=== PATIENT | female | born 1940 | race Caucasian/White ===

== ENCOUNTER 2016-04-11 08:40 | Outpatient (CLI) | payer MEDICARE, OTHER | END 2016-04-11 08:41 | disposition home or self-care (01) | DX: D64.9 Anemia, unspecified (principal) ==

== ENCOUNTER 2016-04-24 09:08 | Outpatient (CLI) | payer MEDICARE, OTHER | END 2016-04-24 09:09 | disposition home or self-care (01) | DX: D64.9 Anemia, unspecified (principal) ==

== ENCOUNTER 2016-05-23 09:28 | Outpatient (CLI) | payer MEDICARE, OTHER | END 2016-05-23 09:29 | disposition home or self-care (01) | DX: E55.9 Vitamin D deficiency, unspecified (principal); E78.2 Mixed hyperlipidemia; Z79.899 Other long term (current) drug therapy ==

== ENCOUNTER 2016-08-06 08:00 | Outpatient (CLI) | payer MEDICARE, OTHER | END 2016-08-06 23:59 | LOC: LAB.R 08:00 | PROVIDERS: ATTEND Physician Assistant Medical | DX: E55.9 Vitamin D deficiency, unspecified (principal); Z79.899 Other long term (current) drug therapy | CPT/HCPCS: 82306 ==

== ENCOUNTER 2016-12-31 12:03 | Outpatient (CLI) | payer MEDICARE, OTHER ==
--- NOTE | 2016-12-31 15:44 | XRAY Report ---
THREE VIEW LUMBAR SPINE: 12/31/2016 CLINICAL INDICATION: Back pain, radiculopathy. FINDINGS: AP, lateral, and coned down views of the lumbar spine are compared to previous films of . Degenerative changes, with anterolisthesis of L5 on S1, are stable. Chronic compression deformity, mi ld, of L3 is unchanged. No new fracture or subluxation is appreciated. Mild degenerative levoscoliosi s is stable. IMPRESSION: STABLE MILD L3 COMPRESSION FRACTURE AND ANTEROLISTHESIS OF L5 ON S1. NO SIGNIFICANT INTE RVAL CHANGE FROM 09/14/2015. JOB #: [id number] EXT JOB #:[id number]
== END 2016-12-31 12:04 | disposition home or self-care (01) ==
LOC: DI 12:03
PROVIDERS: ATTEND Physician Assistant Medical
DX: M47.896 Other spondylosis, lumbar region (principal); M43.8X6 Other specified deforming dorsopathies, lumbar region; M43.17 Spondylolisthesis, lumbosacral region
CPT/HCPCS: 72100

== ENCOUNTER 2016-12-31 19:34 | Outpatient (CLI) | payer MEDICARE, OTHER | END 2016-12-31 19:35 | disposition critical access hospital (66) | LOC: EMS 19:34 | PROVIDERS: ATTEND Surgery | DX: R05 Cough (principal) | CPT/HCPCS: 72100; A0425; A0429 ==

== ENCOUNTER 2016-12-31 19:43 | Emergency (ER) | payer MEDICARE, OTHER ==
[2016-12-31] MEDS ORDERED: IPRATROPIUM/ALBUTEROL 3 ML NEB INH STA (20:16)
[2016-12-31] MEDS ORDERED: AZITHROMYCIN 250 MG TABLET PO STA (20:16)
[2016-12-31] MEDS: methylPREDNISolone SUCCINATE 125 MG/2 ML VIAL IVP STA ×2 (20:26→20:34)
[2016-12-31] MEDS ORDERED: AZITHROMYCIN 250 MG TABLET PO ONE (20:27)
[2016-12-31] MEDS ORDERED: methylPREDNISolone SUCCINATE 125 MG/2 ML VIAL ONE (20:27)
[2016-12-31] MEDS ORDERED: SODIUM CHLORIDE FLUSH 0.9% 10 ML SYRINGE IVP ONE (20:28)
[2016-12-31 20:42] LABS: BASOPHILS % (AUTO) 0.2 %; HCT - HEMATOCRIT 42.7 % (37.0-47.0); LYMPHOCYTES # (AUTO) 0.9 10^3/uL (1.5-3.5); LYMPHOCYTES % (AUTO) 6.7 %; MEAN CORPUSCULAR HEMOGLOBIN 31.2 pg (27.0-31.0); MEAN CORPUSCULAR HGB CONC 32.8 g/dL (32.0-36.0); MEAN PLATELET VOLUME 8.8 fL (7.9-10.8); MONOCYTES # (AUTO) 0.9 10^3/uL (0.0-1.0); NEUTROPHILS # (AUTO) 11.5 10^3/uL (1.5-6.6); NEUTROPHILS % (AUTO) 86.1 %; RED CELL DISTRIBUTION WIDTH 13.3 % (12.0-15.0); UNCORRECTED WHITE BLOOD COUNT 13.3 x10^3/uL; WHITE BLOOD COUNT 13.3 x10^3/uL (4.8-10.8)
[2016-12-31 21:06] LABS: ALBUMIN/GLOBULIN RATIO 1.7 (1.0-2.2); BILIRUBIN,TOTAL 0.6 mg/dL (0.2-1.0); CALCIUM 9.1 mg/dL (8.5-10.3); CREATININE 1.1 mg/dL (0.4-1.0); POTASSIUM 4.3 mmol/L (3.5-5.0); TOTAL PROTEIN 6.5 g/dL (6.7-8.2)
[2016-12-31] MEDS ORDERED: IPRATROPIUM/ALBUTEROL 3 ML NEB INH ONE (21:13)
--- NOTE | 2016-12-31 21:34 | XRAY Preliminary Report ---
Exam: XR Chest 2 View PA/LAT IMPRESSION: 1. Probable 3.5 cm right lung base mass. 2. Chronic lung disease. 3. Mature postoperative changes left lung. [facility] SITE ID: [id number]
[2016-12-31] MEDS ORDERED: SODIUM CHLORIDE 0.9% 1,000 ML IV ONE (21:39)
--- NOTE | 2016-12-31 21:45 | XRAY Report ---
EXAM: CHEST RADIOGRAPHY EXAM DATE: 12/31/2016 08:59 PM. CLINICAL HISTORY: Wheezing cough for 5 days. COMPARISON: 03/15/2016. TECHNIQUE: 2 views. FINDINGS: Lungs/Pleura: Remote partial left lung resection. 3.5 cm mass- like density right lateral lung base. No vascular congestion or pneumothorax. Emphysematous changes. Mediastinum: Stable moderate right to left mediastinal shift. Heart is of normal caliber. No adenopat hy. Other: None. IMPRESSION: 1. Probable 3.5 cm right lung base mass. 2. Chronic lung disease. 3. Mature postoperative changes left lung. [facility] Referring Provider Line: [phone] SITE ID: [id number]
[2016-12-31] MEDS ORDERED: ALBUTEROL NEB 2.5 MG/3 ML INH STA (22:53)
[2016-12-31] MEDS ORDERED: ALBUTEROL NEB 2.5 MG/3 ML INH ONE (22:58)
--- NOTE | 2016-12-31 23:26 | ED Physician Documentation ---
PD HPI DYSPNEA - Stated complaint Stated Complaint: SOA - Chief complaint Chief Complaint: Resp - History obtained from History obtained from: Patient, Friend - History of Present Illness Timing - onset: Today Timing - onset during: Rest, Light activity Timing - details: Gradual onset, Still present Inciting event(s): URI Improved by: O2, Inhaler/neb, Steroids Associated symptoms: Cough, Wheezing Similar symptoms before: Work up / diagnostics, Treatment Recently seen: Clinic - Additional information Additional information: Patient is a 76 year old female with a history of copd and lung ca who is presenting to the emergency department for shortness of breath. Patient states that it has been going on for the last few days. Patient states that she started her steroids today and saw her pmd. Her pmd stated that she sounded ok , but patient wanted to come in for evaluation. Patient was a bit hypoxic earlier in the day, but improved with nebulizer treatments. Review of Systems Constitutional: reports: Chills. denies: Fever Eyes: denies: Loss of vision, Photophobia Ears: denies: Ear pain, Drainage/discharge Nose: denies: Rhinorrhea / runny nose, Congestion Throat: denies: Dental pain / toothache, Sore throat Cardiac: denies: Chest pain / pressure, Calf pain Respiratory: reports: Dyspnea, Cough, Wheezing GI: denies: Nausea, Vomiting : denies: Dysuria, Frequency Skin: denies: Rash, Lesions Musculoskeletal: reports: Extremity swelling. denies: Neck pain, Back pain Neurologic: denies: Generalized weakness, Focal weakness, Numbness, Difficulty speaking Immunocompromised: reports: Immunocompromised PD PAST MEDICAL HISTORY - Past Medical History Past Medical History: Yes Cardiovascular: None, Valve disorder Respiratory: Asthma, Other Endocrine/Autoimmune: HyPOthyroidism GI: GERD : None HEENT: Glaucoma Psych: Anxiety Musculoskeletal: None Derm: Eczema Other Past Medical History: Lung CA - Past Surgical History Past Surgical History: Yes General: Colonoscopy Ortho: ACL reconstruction /PULL UP HAND: Hysterectomy Cardiovascular: Lobectomy HEENT: Tonsil/Adenoidectomy - Present Medications Home Medications: Ambulatory Orders Medication Instructions Recorded Confirmed Albuterol Sulfate [Proair Hfa 1 - 2 puffs INH Q4H PRN 09/27/13 03/15/16 Inhaler] Clonazepam 0.5 mg PO BID 09/27/13 03/15/16 Latanoprost 1 drop EACHEYE QPM 09/27/13 03/15/16 Levothyroxine [Synthroid] 50 mcg PO DAILY 09/27/13 03/15/16 Timolol 0.5% Ophth Drops [Timoptic 1 drop EACHEYE BID 09/27/13 03/15/16 0.5% Ophth Drops] Omeprazole [Prilosec] 20 mg PO DAILY 02/15/15 03/15/16 Zolpidem [Ambien] 2.5 - 5 mg PO QPM 02/15/15 03/15/16 Albuterol 2.5 mg INH QPM 03/15/16 03/15/16 Brimonidine 0.1% Ophth Drops 1 drop RIGHTEYE BID 03/15/16 03/15/16 [Alphagan P 0.1% Ophth Drops] Budesonide/Formoterol Fumarate 2 puffs INH BID 03/15/16 03/15/16 [Symbicort 160-4.5 Mcg Inhaler] Folic Acid 400 mg PO DAILY 03/15/16 03/15/16 Escitalopram [Lexapro] 10 mg PO DAILY 03/16/16 03/16/16 Hydrocodone/Acetaminophen 1 tab PO QID PRN 03/16/16 03/16/16 [Hydrocodon-Acetaminophen 5-325] Ondansetron Odt [Zofran Odt] 4 mg PO Q6H PRN 03/16/16 03/16/16 Prochlorperazine [Compazine] 5 - 10 mg PO Q6H PRN 03/16/16 03/16/16 Ferrous Sulfate [Feosol] 325 mg PO BIDWM tablet 03/19/16 Folic Acid 1 mg PO DAILY tablet 03/19/16 Lidocaine Patch 5% [Lidoderm Patch] 1 patch TOP DAILY PRN #0 patch 03/19/16 Multivitamin W/Minerals [Theragran 1 tab PO DAILYWM tablet 03/19/16 M] Pantoprazole [Protonix] 40 mg PO QDAC tablet 03/19/16 Polyethylene Glycol 3350 [Miralax] 17 gm PO DAILY packet 03/19/16 Prochlorperazine [Compazine] 5 mg PO Q6HR PRN #0 tablet 03/19/16 Zolpidem [Ambien] 2.5 mg PO QPM PRN #0 tablet 03/19/16 clonazePAM [KlonoPIN] 0.5 mg PO BID PRN #0 tablet 03/19/16 traMADol [Ultram] 50 mg PO Q4HR PRN #0 tablet 03/19/16 Azithromycin [Zithromax] 250 mg PO DAILY #4 tablet 12/31/16 - Allergies Allergies/Adverse Reactions: Allergies Allergy/AdvReac Type Severity Reaction Status Date / Time alprazolam AdvReac Unknown Verified 03/15/16 09:53 gabapentin AdvReac Unknown Verified 03/15/16 09:53 hydromorphone HCl * AdvReac Unknown Verified 03/15/16 09:53 [From Dilaudid] prednisone AdvReac Hallucinati Verified 12/31/16 20:32 ons - Social History Does the pt smoke?: No Smoking Status: Never smoker Does the pt drink ETOH?: Yes Does the pt have substance abuse?: No - Immunizations Immunizations are current?: Yes - POLST Patient has POLST: Yes PD ED PE NORMAL - Vitals Vital signs reviewed: Yes - General General: Alert and oriented X 3, No acute distress - HEENT HEENT: Atraumatic, PERRL - Neck Neck: No JVD - Cardiac Cardiac: RRR, No murmur - Abdomen Abdomen: Soft, Non tender, Non distended - Derm Derm: Normal color, Warm and dry, No rash - Extremities Extremities: No deformity, No edema - Neuro Neuro: Alert and oriented X 3, No motor deficit, No sensory deficit, Normal speech - Psych Psych: Normal mood, Normal affect PD ED PE EXPANDED - HEENT HEENT: Dry mucous membranes - Respiratory Respiratory: Wheezing (minimal bilateral wheezing) Results - Vitals Vitals: Vital Signs - 24 hr 12/31/16 12/31/16 12/31/16 19:44 21:00 21:14 Temperature 37.1 C Heart Rate 97 95 96 Respiratory 18 17 16 Rate Blood Pressure 185/85 H 155/73 H O2 Saturation 92 98 12/31/16 12/31/16 12/31/16 21:49 22:05 22:45 Temperature Heart Rate 105 H 96 100 Respiratory 17 16 16 Rate Blood Pressure 152/72 H 148/66 H O2 Saturation 97 98 93 12/31/16 12/31/16 12/31/16 23:04 23:05 23:43 Temperature Heart Rate 100 103 H 110 H Respiratory 17 16 Rate Blood Pressure 153/62 H 151/60 H O2 Saturation 100 94 Oxygen O2 Source Room air Oxygen Flow Rate 2 - EKG (time done) 2003 Rate: Rate (enter#) (95) Rhythm: NSR Cardale: LAD Intervals: Normal [place] QRS: Normal Compare to prior EKG: Unchanged from prior EKG - Labs Labs: Laboratory Tests 12/31/16 12/31/16 12/31/16 20:35 20:35 20:35 WBC 13.3 H RBC 4.50 Hgb 14.0 Hct 42.7 MCV 95.0 MCH 31.2 H MCHC 32.8 RDW 13.3 Plt Count 145 MPV 8.8 Neut # 11.5 H Lymph # 0.9 L [place] # 0.9 Eos # 0.0 Baso # 0.0 Absolute Nucleated RBC 0.00 Nucleated RBC % 0.0 Sodium 137 Potassium 4.3 Chloride 103 Carbon Dioxide 23 Anion Gap 11.0 BUN 22 H Creatinine 1.1 H Estimated GFR (MDRD) 48 L Glucose 122 H Calcium 9.1 Total Bilirubin 0.6 AST 22 ALT 16 Alkaline Phosphatase 47 Troponin I < 0.04 B-Natriuretic Peptide Total Protein 6.5 L Albumin 4.1 Globulin 2.4 Albumin/Globulin Ratio 1.7 Lipase 22 12/31/16 20:35 WBC RBC Hgb Hct MCV MCH MCHC RDW Plt Count MPV Neut # Lymph # [place] # Eos # Baso # Absolute Nucleated RBC Nucleated RBC % Sodium Potassium Chloride Carbon Dioxide Anion Gap BUN Creatinine Estimated GFR (MDRD) Glucose Calcium Total Bilirubin AST ALT Alkaline Phosphatase Troponin I B-Natriuretic Peptide 75 Total Protein Albumin Globulin Albumin/Globulin Ratio Lipase - Rads (name of study) chest x-ray Radiology: Final report received (3.5 right lung mass, chronic lung disease) PD MEDICAL DECISION MAKING - ED course Complexity details: reviewed old records, reviewed results, re-evaluated patient , considered differential, d/w patient, d/w construction safety consultant ED course: Patient was seen and examined at bedside. IV access was gained and labs were drawn. ekg was performed and showed no acute ischemic changes. patient was treated with three breathing treatments. Patient was offered steroids but stated that she had already taken them. patient was found to have a mild leukocytosis and elevated creatinine. Patient was treated with azithromycin and IV fluids. Patient was treated with additional fluids. Upon discharge patient was 95% on room air. Patient's case was discussed with oncologist Dr. Leblanc who stated that the plan was fine for discharge. patient was discharged in stable condition. Departure - Departure Disposition: 01 Home, Self Care Clinical Impression: Moderate COPD (chronic obstructive pulmonary disease) Condition: Good Instructions: ED COPD Flare Follow-Up: Tona Flood PA-C [Primary Care Provider] - Within 3 Days Prescriptions: Azithromycin [Zithromax] 250 mg PO DAILY #4 tablet Comments: Your diagnostics today showed a mild leukocytosis. Your chest x-ray looked clear but I will cover you with antibiotics for your leukocytosis. You had your first dose today and will need to take if for the next 4 days. You should follow up with your doctor this week. You can increase your albuterol usage to every 2 hours as needed for the next few days. You may return to the emergency department at any time for new, worsening or uncontrollable symptoms. Discharge Date/Time: 12/31/16 23:45
[2016-12-31 23:45] VITALS: BP 151/60
== END 2016-12-31 23:45 | disposition home or self-care (01) ==
LOC: EDUNIT# → EDBD → ED 19:43
DX: J44.9 Chronic obstructive pulmonary disease, unspecified (principal); D72.829 Elevated white blood cell count, unspecified; C50.919 Malignant neoplasm of unspecified site of unspecified female breast
CPT/HCPCS: 36415; 71020; 80053; 83690; 83880; 84484; 85025; 93005; 94640; 96361; 96374; 99284; 99285; A9270; J7613; J7620

== ENCOUNTER 2017-01-01 05:42 | Outpatient (CLI) | payer MEDICARE, OTHER | END 2017-01-01 05:43 | disposition critical access hospital (66) | LOC: EMS 05:42 | PROVIDERS: ATTEND Surgery | DX: R06.00 Dyspnea, unspecified (principal) | CPT/HCPCS: A0425; A0427 ==

== ENCOUNTER 2017-01-01 05:55 | Inpatient (IN) | payer MEDICARE, OTHER ==
[2017-01-01 06:39] LABS: BASOPHILS % (AUTO) 0.4 %; HCT - HEMATOCRIT 41.4 % (37.0-47.0); HGB - HEMOGLOBIN 13.8 g/dL (12.0-16.0); LYMPHOCYTES # (AUTO) 0.5 10^3/uL (1.5-3.5); LYMPHOCYTES % (AUTO) 4.8 %; MEAN CORPUSCULAR HEMOGLOBIN 31.8 pg (27.0-31.0); MEAN CORPUSCULAR HGB CONC 33.4 g/dL (32.0-36.0); MEAN CORPUSCULAR VOLUME 95.2 fL (81.0-99.0); MEAN PLATELET VOLUME 8.3 fL (7.9-10.8); MONOCYTES # (AUTO) 0.8 10^3/uL (0.0-1.0); MONOCYTES % (AUTO) 7.1 %; NEUTROPHILS # (AUTO) 9.6 10^3/uL (1.5-6.6); NEUTROPHILS % (AUTO) 87.7 %; RED BLOOD COUNT 4.35 10^6/uL (4.20-5.40); RED CELL DISTRIBUTION WIDTH 13.3 % (12.0-15.0); UNCORRECTED WHITE BLOOD COUNT 10.9 x10^3/uL; WHITE BLOOD COUNT 10.9 x10^3/uL (4.8-10.8)
[2017-01-01 06:53] LABS: ALBUMIN/GLOBULIN RATIO 1.6 (1.0-2.2); BILIRUBIN,TOTAL 0.7 mg/dL (0.2-1.0); CALCIUM 8.8 mg/dL (8.5-10.3); POTASSIUM 3.5 mmol/L (3.5-5.0); TOTAL PROTEIN 6.4 g/dL (6.7-8.2)
[2017-01-01] MEDS ORDERED: ALBUTEROL NEB 2.5 MG/3 ML INH STA (07:03)
--- NOTE | 2017-01-01 07:04 | ED Physician Documentation ---
PD HPI DYSPNEA - Stated complaint Stated Complaint: SOA, CP - Chief complaint Chief Complaint: Resp - History obtained from History obtained from: Patient, Family - History of Present Illness Timing - onset: Chronic Timing - onset during: Rest Timing - details: Gradual onset, Still present Inciting event(s): URI Improved by: O2, Inhaler/neb, Steroids Associated symptoms: Cough, Wheezing Similar symptoms before: Work up / diagnostics, Treatment, Follow up Recently seen: Emergency Dept - Additional information Additional information: patient is a 76 year old female with a history of copd who is presenting to the emergency department for shortness of breath. Patient was seen in the emergency department yesterday where she was treated for a copd exacerbation. patient was discharged home without any hypoxia. Patient states that after she got home last night she was feeling well for a while then had an episode of vomiting so she called the ambulance. patient states that her nausea improved but then her chest felt tight again so she wanted to come to the emergency department. Upon initial evaluation in the emergency department patient was well appearing and had an O2 sat of 94% on room air, but stated that she felt tight. Review of Systems Constitutional: denies: Fever, Chills, Myalgias Eyes: denies: Decreased vision, Photophobia Ears: denies: Ear pain, Drainage/discharge Nose: denies: Congestion Throat: denies: Sore throat Cardiac: denies: Chest pain / pressure, Palpitations, Calf pain Respiratory: reports: Dyspnea, Cough, Wheezing GI: reports: Nausea, Vomiting. denies: Abdominal Pain, Constipation, Diarrhea : denies: Dysuria, Frequency, Hesitancy Skin: denies: Rash, Lesions Neurologic: denies: Generalized weakness, Focal weakness, Numbness Immunocompromised: reports: Immunocompromised PD PAST MEDICAL HISTORY - Past Medical History Past Medical History: Yes Cardiovascular: Valve disorder Respiratory: Asthma, Other Neuro: None Endocrine/Autoimmune: HyPOthyroidism GI: GERD VISUAL COORDINATOR: None : None HEENT: Glaucoma Psych: Anxiety Musculoskeletal: None Derm: Eczema - Past Surgical History Past Surgical History: Yes General: Colonoscopy Ortho: ACL reconstruction /VISUAL COORDINATOR: Hysterectomy Cardiovascular: Lobectomy HEENT: Tonsil/Adenoidectomy - Present Medications Home Medications: Ambulatory Orders Medication Instructions Recorded Confirmed Albuterol Sulfate [Proair Hfa 1 - 2 puffs INH Q4H PRN 09/27/13 03/15/16 Inhaler] Clonazepam 0.5 mg PO BID 09/27/13 03/15/16 Latanoprost 1 drop EACHEYE QPM 09/27/13 03/15/16 Levothyroxine [Synthroid] 50 mcg PO DAILY 09/27/13 03/15/16 Timolol 0.5% Ophth Drops [Timoptic 1 drop EACHEYE BID 09/27/13 03/15/16 0.5% Ophth Drops] Omeprazole [Prilosec] 20 mg PO DAILY 02/15/15 03/15/16 Zolpidem [Ambien] 2.5 - 5 mg PO QPM 02/15/15 03/15/16 Albuterol 2.5 mg INH QPM 03/15/16 03/15/16 Brimonidine 0.1% Ophth Drops 1 drop RIGHTEYE BID 03/15/16 03/15/16 [Alphagan P 0.1% Ophth Drops] Budesonide/Formoterol Fumarate 2 puffs INH BID 03/15/16 03/15/16 [Symbicort 160-4.5 Mcg Inhaler] Folic Acid 400 mg PO DAILY 03/15/16 03/15/16 Escitalopram [Lexapro] 10 mg PO DAILY 03/16/16 03/16/16 Hydrocodone/Acetaminophen 1 tab PO QID PRN 03/16/16 03/16/16 [Hydrocodon-Acetaminophen 5-325] Ondansetron Odt [Zofran Odt] 4 mg PO Q6H PRN 03/16/16 03/16/16 Prochlorperazine [Compazine] 5 - 10 mg PO Q6H PRN 03/16/16 03/16/16 Ferrous Sulfate [Feosol] 325 mg PO BIDWM tablet 03/19/16 Folic Acid 1 mg PO DAILY tablet 03/19/16 Lidocaine Patch 5% [Lidoderm Patch] 1 patch TOP DAILY PRN #0 patch 03/19/16 Multivitamin W/Minerals [Theragran 1 tab PO DAILYWM tablet 03/19/16 M] Pantoprazole [Protonix] 40 mg PO QDAC tablet 03/19/16 Polyethylene Glycol 3350 [Miralax] 17 gm PO DAILY packet 03/19/16 Prochlorperazine [Compazine] 5 mg PO Q6HR PRN #0 tablet 03/19/16 Zolpidem [Ambien] 2.5 mg PO QPM PRN #0 tablet 03/19/16 clonazePAM [KlonoPIN] 0.5 mg PO BID PRN #0 tablet 03/19/16 traMADol [Ultram] 50 mg PO Q4HR PRN #0 tablet 03/19/16 Azithromycin [Zithromax] 250 mg PO DAILY #4 tablet 12/31/16 - Allergies Allergies/Adverse Reactions: Allergies Allergy/AdvReac Type Severity Reaction Status Date / Time alprazolam AdvReac Unknown Verified 01/01/17 06:10 gabapentin AdvReac Unknown Verified 01/01/17 06:10 hydromorphone HCl * AdvReac Unknown Verified 01/01/17 06:10 [From Dilaudid] prednisone AdvReac Hallucinati Verified 01/01/17 06:10 ons - Social History Does the pt smoke?: No Smoking Status: Never smoker Does the pt drink ETOH?: Yes Does the pt have substance abuse?: No - Immunizations Immunizations are current?: Yes - POLST Patient has POLST: Yes PD ED PE NORMAL - Vitals Vital signs reviewed: Yes - General General: Alert and oriented X 3, No acute distress - HEENT HEENT: Atraumatic, PERRL - Neck Neck: Supple, no meningeal sign - Cardiac Cardiac: RRR, No murmur - Abdomen Abdomen: Soft, Non tender, Non distended - Derm Derm: Normal color, Warm and dry, No rash - Extremities Extremities: No deformity, No tenderness to palpate, No edema - Neuro Neuro: Alert and oriented X 3, No motor deficit, No sensory deficit, Normal speech - Psych Psych: Normal mood, Normal affect PD ED PE EXPANDED - Respiratory Respiratory: Wheezing (minimal wheezing ). No: Labored, Accessory mm use Results - Vitals Vitals: Vital Signs - 24 hr 01/01/17 01/01/17 06:06 06:46 Temperature 37.1 C Heart Rate 107 H 101 H Respiratory 17 16 Rate Blood Pressure 169/79 H 135/57 H O2 Saturation 94 94 Oxygen O2 Source Room air - EKG (time done) 0609 Rate: Rate (enter#) (107) Rhythm: Sinus tachycardia [place]: LAD QRS: LVH Compare to prior EKG: Unchanged from prior EKG - Labs Labs: Laboratory Tests 01/01/17 01/01/17 01/01/17 06:32 06:32 06:32 WBC 10.9 H RBC 4.35 Hgb 13.8 Hct 41.4 MCV 95.2 MCH 31.8 H MCHC 33.4 RDW 13.3 Plt Count 136 MPV 8.3 Neut # 9.6 H Lymph # 0.5 L [place] # 0.8 Eos # 0.0 Baso # 0.0 Absolute Nucleated RBC 0.00 Nucleated RBC % 0.0 Sodium 138 Potassium 3.5 Chloride 104 Carbon Dioxide 25 Anion Gap 9.0 BUN 19 Creatinine 1.0 Estimated GFR (MDRD) 54 L Glucose 120 H Calcium 8.8 Total Bilirubin 0.7 AST 19 ALT 15 Alkaline Phosphatase 45 Troponin I < 0.04 Total Protein 6.4 L Albumin 3.9 Globulin 2.5 Albumin/Globulin Ratio 1.6 Lipase 18 L PD MEDICAL DECISION MAKING - ED course Complexity details: reviewed old records, reviewed results, re-evaluated patient , considered differential, d/w patient ED course: Patient was seen and examined at bedside. repeat blood work was ordered and patient was treated with 2 duonebs. due to failing outpatient therapy hospitalist was contacted and case was discussed with him. Patient was placed in observation. CT was ordered to be followed by inpatient team. Patient was placed in observation in stable condition. Departure - Departure Disposition: ED Place in Observation Clinical Impression: Moderate COPD (chronic obstructive pulmonary disease) Condition: Stable
[2017-01-01] MEDS ORDERED: SODIUM CHLORIDE FLUSH 0.9% 10 ML SYRINGE IVP PRN (07:07)
[2017-01-01] MEDS ORDERED: ALBUTEROL NEB 2.5 MG/3 ML INH ONE (07:25)
[2017-01-01] MEDS ORDERED: IOPAMIDOL-300 100 ML VIAL ONE (07:38)
[2017-01-01] MEDS ORDERED: IOPAMIDOL-300 100 ML VIAL IVP ONE ×2 (08:11)
[2017-01-01] MEDS ORDERED: IPRATROPIUM/ALBUTEROL 3 ML NEB INH PRN (08:33)
[2017-01-01] MEDS ORDERED: LIDOCAINE PATCH 5% TOP PRN (08:34)
[2017-01-01] MEDS ORDERED: traMADol 50 MG TABLET PO PRN (08:34)
[2017-01-01] MEDS ORDERED: ONDANSETRON 4 MG/2 ML VIAL IVP PRN (08:36)
[2017-01-01] MEDS ORDERED: PROCHLORPERAZINE 10 MG/2 ML VIAL IVP PRN (08:36)
[2017-01-01] MEDS: POLYETHYLENE GLYCOL 3350 17 GM PACKET PO SCH (08:37)
[2017-01-01] MEDS ORDERED: ESCITALOPRAM 10 MG TABLET PO SCH (09:00)
[2017-01-01] MEDS ORDERED: ENOXAPARIN 40 MG/0.4 ML SYRINGE SUBQ SCH (09:00)
[2017-01-01] MEDS ORDERED: AZITHROMYCIN INJ 250 MG in SODIUM CHLORIDE 0.9% 250 ML IV SCH (09:00)
--- NOTE | 2017-01-01 09:10 | CT Preliminary Report ---
Exam: CT Chest Angio (PE) IMPRESSION: 1. No evidence of pulmonary embolus, aortic aneurysm or aortic dissection. 2. Status post left lower lobectomy. 3. Multiple right lung lesions are largest in the right lower lobe measuring up to 5.1 cm with gee us smaller nodules in the right lower lobe as well as a lesion in the right middle lobe. Findings may be due to metastatic disease or primary bronchogenic lesions with adjacent metastases. 4. Numerous largely subcentimeter mediastinal and hilar lymph nodes. 5. Low-attenuation hepatic lesions a ring cyst. 6. Bilateral renal low-attenuation lesions the most prominent ill-defined in the left kidney measurin g 16 mm which may either represent a complex cyst versus metastatic disease. [facility] SITE ID: [id number]
[2017-01-01] MEDS: FORMOTEROL FUMARATE NEB 20 MCG/2 ML INH SCH ×2 (10:27→21:55)
[2017-01-01] MEDS: IPRATROPIUM/ALBUTEROL 3 ML NEB INH SCH ×4 (10:27→21:55)
[2017-01-01] MEDS: BUDESONIDE 0.5 MG/2 ML NEB INH SCH ×2 (10:27→21:55)
--- NOTE | 2017-01-01 10:48 | CT Report ---
EXAM: CT ANGIOGRAM CHEST EXAM DATE: 01/01/2017 08:14 AM. CLINICAL HISTORY: Shortness of breath, lung cancer. COMPARISON: 12/31/2016. 03/15/2016. TECHNIQUE: Routine helical imaging was performed through the chest in the pulmonary arterial phase. I V Contrast: 70 mL of Isovue-300. Reconstructions: Coronal 3-D MIP reconstructions.Sagittal and lopez l. In accordance with CT protocol optimization, one or more of the following dose reduction techniques w ere utilized for this exam: automated exposure control, adjustment of mA and/or KV based on patient s ize, or use of iterative reconstructive technique. FINDINGS: Pulmonary Arteries: Diagnostic quality: Adequate through the segmental arteries. No evidence for acute or chronic pulmona ry emboli. Lungs/Pleura: Changes are seen from left lower lobectomy. Areas of parenchymal scarring are seen in t he left lung as well as postsurgical changes posteriorly. Lobular lesion with air bronchograms is see n measuring approximately 5.1 x 3.2 x 3.4 cm in the peripheral aspect of the right lower lobe with ad jacent smaller nodular area along its medial and cephalad aspect measuring up to 8 mm and also more c ephalad measuring up to 10 mm as well as medially measuring 9-10 mm. Other nodules are also present m ore cephalad, ill-defined, measuring between 5 and 7 mm. There is mild right lung bronchial dilatatio n. Stellate lesion is seen anteriorly in the right middle lobe measuring 12 x 11 x 12 mm. Ground-glas s opacity is seen in the right upper lobe measuring up to 11 mm. No pleural effusions. No endobronchi al obstruction or pneumothorax. Small left pleural effusion. Mediastinum: Heart size is normal. Mitral annular calcifications are seen. Coronary artery calcificat ions and thoracic aortic calcifications. Thyroid gland is heterogeneous with calcified and noncalcifi ed nodules. Numerous largely subcentimeter mediastinal and hilar lymph nodes are seen, the largest pr ecarinal measuring 7 mm in short axis dimension and right hilar measuring 5 mm in short axis dimensio n. Small hiatal hernia. Thoracic Aorta: Normal in caliber. Calcified and noncalcified plaque. No aneurysm. No dissection. Upper Abdomen: Included portions of the liver demonstrate a medial left lower lobe 2.5 mm low-attenua tion lesion possibly a cyst, and a smaller lesion in the left lobe measuring 6 mm. Included portions of the gallbladder, adrenals, spleen, and pancreas are unremarkable. Bilateral renal low-attenuation lesions are seen, the largest ill-defined in the upper pole of the left kidney measuring 16 mm with s ome marginal heterogeneity. Included portions of the upper abdominal bowel are unremarkable. Other: None. IMPRESSION: 1. No evidence of pulmonary embolus, aortic aneurysm or aortic dissection. 2. Status post left lower lobectomy. 3. Multiple right lung lesions, the largest in the right lower lobe measuring up to 5.1 cm with numer ous smaller nodules in the right lower lobe as well as a lesion in the right middle lobe. Findings ma y be due to metastatic disease or primary bronchogenic lesion with adjacent metastases. 4. Numerous largely subcentimeter mediastinal and hilar lymph nodes. 5. Low-attenuation hepatic lesions indeterminant although possibly cysts. 6. Bilateral renal low-attenuation lesions, the most prominent and ill-defined in the left kidney nikita suring 16 mm which may either represent a complex cyst versus metastatic disease. [facility] Referring Provider Line: [phone] SITE ID: [id number]
[2017-01-01] MEDS: TIMOLOL 0.5% OPHTH DROPS EACHEYE SCH ×2 (11:53→21:37)
[2017-01-01] MEDS: BRIMONIDINE 0.1% OPHTH DROPS 5 ML RIGHTEYE SCH ×2 (11:53→21:37)
[2017-01-01] MEDS: FOLIC ACID 1 MG TABLET PO SCH (11:55)
[2017-01-01] MEDS: DOXYCYCLINE 100 MG TABLET PO SCH ×2 (11:55→21:32)
[2017-01-01] MEDS: LEVOTHYROXINE 25 MCG TABLET PO SCH (11:55)
[2017-01-01] MEDS: clonazePAM 0.5 MG TABLET PO SCH (11:55)
--- NOTE | 2017-01-01 13:18 | HISTORY & PHYSICAL EXAMINATION ---
Chief Complaint - Chief Complaint Chief Complaint: Shortness of air History of Present Illness - Admitted From Admitted From:: Emergency department - History Obtained From Records Reviewed: Yes History obtained from: Patient Exam Limitations: None - History of Present Illness HPI Comment/Other: Patient is a 76-year-old female with a past medical history significant for breast cancer diagnosed in 1994 as invasive ductal carcinoma status post chemotherapy, radiation and vasectomy, lung cancer diagnosed in July 2011 status post left lower lobe lung resection, chemotherapy and currently on immunotherapy, hyperlipidemia, hypothyroidism, depression and anxiety who presented to the emergency department with a chief complaint of shortness of air. The patient states that she was in her normal state of health until about 5 days ago when she started having the symptoms of an upper respiratory infection. She states that she had nasal congestion, sore throat, runny nose and began having a dry cough. She states that typically when she gets a cold she does develop asthma exacerbation and in order to keep herself from going into exacerbation she typically starts using her nebulizer and steroids. The patient did have prednisone at home and started taking 40 mg of prednisone along with nebulizer treatments when she first started getting the cold. The patient states despite treatments 2 nights ago she became so short of air that she ended up coming to the emergency department. The patient was treated in the emergency department with nebulizer treatments as well as steroids and antibiotic. The patient states that she returned home initially was feeling better but then developed nausea and had a few episodes of vomiting which she thinks is likely due to the antibiotic she received in the emergency department. Patient states that she called her primary care physician Tona kohli who advised her over the phone and the patient states that her nausea resolved. The patient states that she went to bed feeling better but then woke up in the middle the night with shortness of air and could not catch her breath. She states that at that point she called 911 and was brought into the emergency department. The patient denies any fevers at home, she denies any productive cough, she denies any recent sick contacts, she denies any hemoptysis , night sweats or recent unintentional weight loss. Patient denies any headaches, blurred vision, chest pain, abdominal pain, nausea , vomiting, diarrhea, constipation, urinary urgency, urinary frequency, dysuria , back pain, neck stiffness, changes in appetite, muscle aches, joint pain, joint swelling or focal neurologic deficits. On presentation to the emergency department the patient was afebrile, tachycardic, hypertensive and appeared to be in some respiratory distress saturating in the low 90s. The patient did develop a fever once she was admitted to the medical ag[facility] up to 38.4 Celsius. The patient had a mild leukocytosis of 10.9 otherwise her lab work was unremarkable. Patient's troponin was negative and the patient's EKG showed sinus tachycardia with LVH but no ischemic changes. The patient underwent a CT angios of the thorax given her history of cancer and concern for possible pulmonary embolism. The CT scan showed no evidence of pulmonary embolism, aortic aneurysm or aortic dissection. There was finding of multiple right lung lesions the largest in the right lower lobe measuring up to 5.1 cm and numerous smaller nodules in the right lower lobe as well as a lesion in the right middle lobe. The patient also had numerous largely subcentimeter mediastinal and hilar lymph nodes and a likely cyst on her liver as well as a bilateral low attenuation lesion on her kidneys which could also be cyst versus metastatic disease. The patient continued to have wheezing and was short of air despite several treatments with nebulizers in the emergency department therefore she was placed in observation for a asthma exacerbation. 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 Respiratory: reports: Asthma, Other (Lung cancer) Neuro: reports: None Endocrine/Autoimmune: reports: HyPOthyroidism GI: reports: GERD SVP: reports: Breast cancer : reports: None HEENT: reports: Glaucoma Psych: reports: Depression, Anxiety Musculoskeletal: reports: None Derm: reports: Eczema MRSA Hx?: No - Past Surgical History General: reports: Colonoscopy Ortho: reports: ACL reconstruction /SVP: reports: Hysterectomy Cardiovascular: reports: Lobectomy HEENT: reports: Tonsil/Adenoidectomy - Family & Social History Family History: Mother: (Mother at 86 after a stroke and father at 93 of old age), CVA/TIA, Father: , Sister: Alive and Well ( Brother and sister both healthy), Brother: Alive and Well Living arrangement: At home Living Situation: With spouse/s.o. Social History Notes: The patient lives in [place] with her partner. She has never been , she does not have any children. She has been living on [facility] for 18 years. She is originally from [place], [place]. She lived in [place] for many years prior to moving to [facility]. The patient is a former smoker smoked 2 packs a day for about 15 years quit in 1976. She drinks 4 ounces of wine a night and denies any illicit drug use. - Substance History Use: Uses substance without health or social issues: NONE Abuse: Recurrent use of substance despite neg consequences: NONE Dependence: Experiences withdrawal or developed tolerances: NONE - POLST Patient has POLST: Yes POLST Status: Full Code Meds/Allgy - Home Medications Home Medications: Ambulatory Orders Medication Instructions Recorded Confirmed Albuterol Sulfate [Proair Hfa 1 - 2 puffs INH Q4H PRN 09/27/13 01/01/17 Inhaler] Latanoprost 1 drop EACHEYE QPM 09/27/13 01/01/17 Levothyroxine [Synthroid] 50 mcg PO DAILY 09/27/13 01/01/17 Timolol 0.5% Ophth Drops [Timoptic 1 drop EACHEYE BID 09/27/13 01/01/17 0.5% Ophth Drops] Brimonidine 0.1% Ophth Drops 1 drop RIGHTEYE BID 03/15/16 01/01/17 [Alphagan P 0.1% Ophth Drops] Budesonide/Formoterol Fumarate 2 puffs INH BID 03/15/16 01/01/17 [Symbicort 160-4.5 Mcg Inhaler] Escitalopram [Lexapro] 10 mg PO DAILY PM 03/16/16 01/01/17 Ferrous Sulfate [Feosol] 325 mg PO BIDWM tablet 03/19/16 01/01/17 Folic Acid 1 mg PO DAILY tablet 03/19/16 01/01/17 Multivitamin W/Minerals [Theragran 1 tab PO DAILYWM tablet 03/19/16 01/01/17 M] Prochlorperazine [Compazine] 5 mg PO Q6HR PRN #0 tablet 03/19/16 01/01/17 Zolpidem [Ambien] 2.5 mg PO QPM PRN #0 tablet 03/19/16 01/01/17 Omeprazole [PriLOSEC] 10 mg PO QDAC 01/01/17 01/01/17 Prednisone 30 mg PO DAILY 01/01/17 01/01/17 clonazePAM [KlonoPIN] 0.5 mg PO DAILY PRN 01/01/17 01/01/17 - Allergies Allergies/Adverse Reactions: Allergies Allergy/AdvReac Type Severity Reaction Status Date / Time alprazolam AdvReac Unknown Verified 01/01/17 06:10 gabapentin AdvReac Unknown Verified 01/01/17 06:10 hydromorphone HCl * AdvReac Unknown Verified 01/01/17 06:10 [From Dilaudid] prednisone AdvReac Hallucinati Verified 01/01/17 06:10 ons Review of Systems - Other Findings Other Findings: A comprehensive review of systems was performed the pertinent positives and negatives are stated above in the HPI and the remainder of the review of systems is negative. Exam - Vital Signs Reviewed Vital Signs: Yes Vital Signs: Vital Signs x48h Temp Pulse Pulse Resp BP BP Pulse Ox 01/01/17 11:39 38.4 C H 80 16 132/63 H 96 01/01/17 08:57 37.8 C H 117 H 16 148/59 H 91 L 01/01/17 08:10 114 H 20 151/59 H 94 01/01/17 07:24 117 H 14 01/01/17 07:18 36.9 C 103 H 16 145/59 H 92 - Physical Exam General Appearance: positive: Alert, Mild distress (short of breath) Eyes Bilateral: positive: Normal inspection, PERRL, EOMI, No lid inflammation, Conjunctivae nml, No scleral icterus ENT: positive: ENT inspection nml, Pharynx nml, No signs of dehydration. negative: Purulent nasal drainage, Pharyngeal erythema, Oral lesions Neck: positive: Nml inspection, Thyroid nml, No JVD, Trachea midline. negative : Thyromegaly, Lymphadenopathy (R), Lymphadenopathy (L), Carotid bruit, Tracheal deviation Respiratory: positive: Chest non-tender, Wheezes (Bilateral, expiratory, diffuse ), Other (Lungs are tight). negative: Rales, Rhonchi Cardiovascular: positive: No murmur, No gallop, Tachycardia Peripheral Pulses: positive: 2+ Abdomen: positive: Non-tender, No organomegaly, Nml bowel sounds, No distention. negative: Guarding, Rebound, Hepatomegaly Back: positive: Nml inspection. negative: CVA tenderness (R), CVA tenderness (L ) Skin: positive: Color nml, No rash, Warm. negative: Cyanosis, Pallor Extremities: positive: Non-tender, Full ROM, Nml appearance, No pedal edema Neurologic/Psychiatric: positive: Oriented x3, CN's nml (2-12), Motor nml, Sensation nml, Mood/affect nml Conclusion/Plan - Problem List (1) Asthma exacerbation Conclusion/Plan: Patient presented with a URI for the last 5 days with worsening symptoms over the last 2 days with dyspnea at rest. She tried taking prednisone and nebs at home but did not have significant improvement. She came into the ER yesterday and was discharged after treatment with nebs, antibiotics and steroids. Patient improved but then became acutely short of breath again last night. She presented with dyspnea, hypoxia and was again given nebs and steroids with minimal improvement and admitted for asthma exacerbation. Patient underwent a CTA lungs due to history of cancer which was negative for PE. Etiology of exacerbation is likely URI and underlying lung cancer. Plan: Duonebs IV steroids TID Supplemental O2 Budesonide BID Formoterol BID Wean O2 Doxycycline Monitor Qualifiers: Asthma severity: moderate Asthma persistence: unspecified Qualified Code( s): J45.901 - Unspecified asthma with (acute) exacerbation (2) Sinobronchitis Conclusion/Plan: Patients URI started with sinus congestion and then progressed to sore throat and coughing. Likely cause of asthma exacerbation Started on doxycycline and steroids Treat asthma exacerbation CT shows no signs of pneumonia Patient febrile If continued fever or worsening symptoms will consider a repeat CXR (3) Lung cancer Conclusion/Plan: Patient has history of Lung Ca s/p left lower lobe resection, chemotherapy and now on immunotherapy Patient has spread into the right lung likely mets vs primary bronchogenic lesion with mets Patient presents with asthma exacerbation She is following with oncology as an outpatient We will treat asthma exacerbation and have patient follow up as outpatient. Qualifiers: Laterality: right Lung location: overlapping sites Qualified Code(s): C34.81 - Malignant neoplasm of overlapping sites of right bronchus and lung (4) Hypothyroidism Conclusion/Plan: Patient has history of hypothyroidism Patient on synthroid Appears stable Will continue home dose of synthroid (5) Depression Conclusion/Plan: Patient has history of depression On lexapro at home Stable Continue home meds Qualifiers: Depression Type: major depressive disorder (6) Anxiety Conclusion/Plan: History of anxiety Patient on klonapin at home Stable Continue klonapin (7) Prophylactic use of low molecular weight heparin for venous thromboembolism Conclusion/Plan: Place on lovenox for DVT prophylaxis - Lab Results Lab results reviewed: Yes Fish Bones: 01/01/17 06:32 01/01/17 06:32 Other Lab Results: Laboratory Results WBC 10.9 x10^3/uL (4.8-10.8) H 01/01/17 06:32 RBC 4.35 10^6/uL (4.20-5.40) 01/01/17 06:32 Hgb 13.8 g/dL (12.0-16.0) 01/01/17 06:32 Hct 41.4 % (37.0-47.0) 01/01/17 06:32 MCV 95.2 fL (81.0-99.0) 01/01/17 06:32 MCH 31.8 pg (27.0-31.0) H 01/01/17 06:32 MCHC 33.4 g/dL (32.0-36.0) 01/01/17 06:32 RDW 13.3 % (12.0-15.0) 01/01/17 06:32 Plt Count 136 10^3/uL (130-450) 01/01/17 06:32 MPV 8.3 fL (7.9-10.8) 01/01/17 06:32 Neut # 9.6 10^3/uL (1.5-6.6) H 01/01/17 06:32 Lymph # 0.5 10^3/uL (1.5-3.5) L 01/01/17 06:32 [place] # 0.8 10^3/uL (0.0-1.0) 01/01/17 06:32 Eos # 0.0 10^3/uL (0.0-0.7) 01/01/17 06:32 Baso # 0.0 10^3/uL (0.0-0.1) 01/01/17 06:32 Absolute Nucleated RBC 0.00 x10^3/uL 01/01/17 06:32 Nucleated RBC % 0.0 /100WBC 01/01/17 06:32 Sodium 138 mmol/L (135-145) 01/01/17 06:32 Potassium 3.5 mmol/L (3.5-5.0) 01/01/17 06:32 Chloride 104 mmol/L (101-111) 01/01/17 06:32 Carbon Dioxide 25 mmol/L (21-32) 01/01/17 06:32 Anion Gap 9.0 (6-13) 01/01/17 06:32 BUN 19 mg/dL (6-20) 01/01/17 06:32 Creatinine 1.0 mg/dL (0.4-1.0) 01/01/17 06:32 Estimated GFR (MDRD) 54 (>89) L 01/01/17 06:32 Glucose 120 mg/dL (70-100) H 01/01/17 06:32 Calcium 8.8 mg/dL (8.5-10.3) 01/01/17 06:32 Total Bilirubin 0.7 mg/dL (0.2-1.0) 01/01/17 06:32 AST 19 IU/L (10-42) 01/01/17 06:32 ALT 15 IU/L (10-60) 01/01/17 06:32 Alkaline Phosphatase 45 IU/L (42-121) 01/01/17 06:32 Troponin I < 0.04 ng/mL (<0.49) 01/01/17 06:32 Total Protein 6.4 g/dL (6.7-8.2) L 01/01/17 06:32 Albumin 3.9 g/dL (3.2-5.5) 01/01/17 06:32 Globulin 2.5 g/dL (2.1-4.2) 01/01/17 06:32 Albumin/Globulin Ratio 1.6 (1.0-2.2) 01/01/17 06:32 Lipase 18 U/L (22-51) L 01/01/17 06:32 - Diagnostic Imaging Results Diagnostic Imaging Results: positive: Final report reviewed Diagnostic Imaging Results Comments: CT angiogram of the thorax Impression: 1. No evidence of pulmonary embolus, aortic aneurysm or aortic dissection. 2. Status post left lower lobectomy 3. Multiple right lung lesions, the largest in the right lower lobe measuring up to 5.1 cm with numerous smaller nodules in the right lower lobe as well as a lesion in the right middle lobe. Findings may be due to metastatic disease or primary bronchiogenic lesion with adjacent metastasis. 4. Numerous largely subcentimeter mediastinal and hilar lymph nodes. 5. Low-attenuation hepatic lesion indeterminate although possibly cysts. 6. Bilateral renal low-attenuation lesions, the most prominent and ill-defined in the left kidney measuring 16 mm which may either represent a complex cyst versus metastatic disease. - EKG Results EKG Interpreted Independently: Yes EKG Findings: Sinus tachycardia with left ventricular hypertrophy. Issues/Core Measures - Anticipated LOS Anticipated Stay Length: Less than 2 midnights - DVT/VTE - Prophylaxis VTE/DVT Prophylaxis med ordered at admit?: Yes
[2017-01-01] MEDS: methylPREDNISolone SUCCINATE 40 MG/ML VIAL IVP SCH ×2 (13:40→21:33)
[2017-01-01] MEDS: HYDROcod/ACETAM 5/325 MG TABLET PO PRN (13:40)
[2017-01-01] MEDS: SODIUM CHLORIDE FLUSH 0.9% 10 ML SYRINGE IVP SCH ×2 (13:40→21:38)
[2017-01-01] MEDS: ENOXAPARIN 40 MG/0.4 ML SYRINGE SUBQ SCH (14:09)
[2017-01-01] MEDS: FERROUS SULFATE 325 MG TABLET PO SCH (17:32)
[2017-01-01] MEDS: ESCITALOPRAM 10 MG TABLET PO SCH (21:33)
[2017-01-01] MEDS: LATANOPROST 0.005% OPHTH DROPS EACHEYE SCH (21:43)
[2017-01-01] MEDS: ZOLPIDEM 5 MG TABLET PO PRN (23:05)
[2017-01-02] MEDS: ZOLPIDEM 5 MG TABLET PO PRN (03:39)
[2017-01-02] MEDS: SODIUM CHLORIDE FLUSH 0.9% 10 ML SYRINGE IVP SCH ×3 (05:28→20:56)
[2017-01-02] MEDS: methylPREDNISolone SUCCINATE 40 MG/ML VIAL IVP SCH ×2 (05:28→14:06)
[2017-01-02] MEDS: FORMOTEROL FUMARATE NEB 20 MCG/2 ML INH SCH ×2 (07:20→19:35)
[2017-01-02] MEDS: BUDESONIDE 0.5 MG/2 ML NEB INH SCH ×2 (07:20→19:35)
[2017-01-02] MEDS: IPRATROPIUM/ALBUTEROL 3 ML NEB INH SCH ×4 (07:20→19:35)
[2017-01-02] MEDS: POLYETHYLENE GLYCOL 3350 17 GM PACKET PO SCH (08:50)
[2017-01-02] MEDS: FOLIC ACID 1 MG TABLET PO SCH (08:50)
[2017-01-02] MEDS: DOXYCYCLINE 100 MG TABLET PO SCH ×2 (08:51→20:55)
[2017-01-02] MEDS: clonazePAM 0.5 MG TABLET PO SCH (08:51)
[2017-01-02] MEDS: FERROUS SULFATE 325 MG TABLET PO SCH (08:51)
[2017-01-02] MEDS: MULTIVITAMIN W/MINERALS TABLET PO SCH (08:51)
[2017-01-02] MEDS: TIMOLOL 0.5% OPHTH DROPS EACHEYE SCH ×2 (08:52→20:55)
[2017-01-02] MEDS: ENOXAPARIN 40 MG/0.4 ML SYRINGE SUBQ SCH (08:52)
[2017-01-02] MEDS: BRIMONIDINE 0.1% OPHTH DROPS 5 ML RIGHTEYE SCH ×2 (08:52→20:55)
[2017-01-02] MEDS: LEVOTHYROXINE 25 MCG TABLET PO SCH (08:52)
--- NOTE | 2017-01-02 13:28 | PROVIDER PROGRESS NOTE ---
Assessment/Plan - Problem List (1) Asthma exacerbation Qualifiers: Asthma severity: moderate Asthma persistence: unspecified Qualified Code( s): J45.901 - Unspecified asthma with (acute) exacerbation Assessment/Plan: Patient presented with a URI for the last 5 days with worsening symptoms over the last 2 days with dyspnea at rest. She tried taking prednisone and nebs at home but did not have significant improvement. She came into the ER yesterday and was discharged after treatment with nebs, antibiotics and steroids. Patient improved but then became acutely short of breath again prior to admission. She presented with dyspnea, hypoxia and was again given nebs and steroids with minimal improvement and admitted for asthma exacerbation. Patient underwent a CTA lungs due to history of cancer which was negative for PE. Etiology of exacerbation is likely URI and underlying lung cancer. Patient still coughing with deep inspiration and feels short of breath with exertion. She has been weaned down to room air but not back to baseline and could use another day of treatment in the hospital. Improving slowly likely needs 1-2 more days in the hospital Continue Duonebs prn, decrease IV steroids to daily, Budesonide BID, Formoterol BID and Doxycycline Acupella TID Monitor Qualifiers: Asthma severity: moderate Asthma persistence: unspecified Qualified Code( s): J45.901 - Unspecified asthma with (acute) exacerbation (2) Sinobronchitis Conclusion/Plan: Patients URI started with sinus congestion and then progressed to sore throat and coughing. Likely cause of asthma exacerbation Started on doxycycline and steroids Treat asthma exacerbation CT shows no signs of pneumonia Patient afebrile since yesterday still coughing a lot Improving slowly (3) Lung cancer Conclusion/Plan: Patient has history of Lung Ca s/p left lower lobe resection, chemotherapy and now on immunotherapy Patient has spread into the right lung likely mets vs primary bronchogenic lesion with mets Patient presents with asthma exacerbation She is following with oncology as an outpatient We will treat asthma exacerbation and have patient follow up as outpatient. Qualifiers: Laterality: right Lung location: overlapping sites Qualified Code(s): C34.81 - Malignant neoplasm of overlapping sites of right bronchus and lung (4) Hypothyroidism Conclusion/Plan: Patient has history of hypothyroidism Patient on synthroid Appears stable Will continue home dose of synthroid (5) Depression Conclusion/Plan: Patient has history of depression On lexapro at home Stable Continue home meds Qualifiers: Depression Type: major depressive disorder (6) Anxiety Conclusion/Plan: History of anxiety Patient on klonapin at home Stable Continue klonapin (7) Prophylactic use of low molecular weight heparin for venous thromboembolism Conclusion/Plan: Place on lovenox for DVT prophylaxis - Current Meds Current Meds: Current Medications Generic Name Dose Route Start Last Admin Trade Name Freq PRN Reason Stop Dose Admin Acetaminophen/Hydrocodone Bitart 1 tab 01/01/17 08:36 01/01/17 13:40 [place] 5/325 PO 1 tab Q4HR PRN Administration PAIN Albuterol/Ipratropium 3 ml 01/01/17 09:00 01/02/17 11:10 Duoneb INH 3 ml RTQID LAN Administration Brimonidine Tartrate 1 drops 01/01/17 09:00 01/02/17 08:52 Alphagan P 0.1% Ophth Drops RIGHTEYE 1 drops BID LAN Administration Budesonide 0.5 mg 01/01/17 09:00 01/02/17 07:20 Pulmicort INH 0.5 mg RTBID LAN Administration Clonazepam 0.5 mg 01/01/17 09:00 01/02/17 08:51 Klonopin PO 0.5 mg DAILY LAN Administration Doxycycline Hyclate 100 mg 01/01/17 12:00 01/02/17 08:51 Vibramycin PO 100 mg BID LAN Administration Enoxaparin Sodium 40 mg 01/01/17 14:00 01/02/17 08:52 Lovenox SUBQ Not Given DAILY LAN Escitalopram Oxalate 10 mg 01/01/17 21:00 01/01/17 21:33 Lexapro PO 10 mg 2100 LAN Administration Ferrous Sulfate 325 mg 01/01/17 17:00 01/02/17 08:51 Feosol PO 325 mg BIDWM LAN Administration Folic Acid 1 mg 01/01/17 09:00 01/02/17 08:50 PO 1 mg DAILY LAN Administration Formoterol Fumarate 20 mcg 01/01/17 09:00 01/02/17 07:20 Perforomist INH 20 mcg RTBID LAN Administration Latanoprost 1 drops 01/01/17 21:00 01/01/17 21:43 Xalatan Ophth Drops EACHEYE 1 drops QPM LAN Administration Levothyroxine Sodium 50 mcg 01/01/17 09:00 10/04/17 08:52 Synthroid PO 50 mcg DAILY LAN Administration Methylprednisolone 40 mg 01/01/17 14:00 01/02/17 05:28 Solu-Medrol (40mg Vial) IVP 40 mg TID LAN Administration Multivitamins/Minerals 1 tab 01/02/17 08:00 01/02/17 08:51 Theragran M PO 1 tab DAILYWM LAN Administration Polyethylene Glycol 17 gm 01/01/17 09:00 01/02/17 08:50 Miralax PO 17 gm DAILY LAN Administration Sodium Chloride 10 ml 01/01/17 14:00 01/02/17 05:28 Normal Saline Flush 0.9% IVP 10 ml Q8HR LAN Administration Timolol Maleate 1 drops 01/01/17 09:00 01/02/17 08:52 Timoptic 0.5% Ophth Drops EACHEYE 1 drops BID LAN Administration Zolpidem Tartrate 2.5 mg 01/01/17 08:34 01/02/17 03:39 Ambien PO 2.5 mg QPM PRN Administration Insomnia - Lab Result Lab results reviewed: Yes Fish Bone Diagrams: 01/01/17 06:32 01/01/17 06:32 - Additional Planning Condition/Complexity: Guarded My Orders: My Active Orders 01/02/17 10:59 Acapella (Flutter Valve Device [RC] TID Plan Discussed with:: Patient Time Spent: 31-60 minutes Subjective - Subjective Patient Reports: Cough (still has a lot of coughing especially with deep breathing), Shortness of Breath (Still short of breath with exertion but she states it is getting better), Other (No fevers overnight) Nursing Reports: No Complaints Objective Vital Signs: Vital Signs - 24 hr 01/02/17 01/02/17 11:10 13:00 Temperature 36.8 C Heart Rate 75 Heart Rate [ 92 Brachial] Respiratory 18 18 Rate Blood Pressure 150/73 H [Left Brachial artery] O2 Saturation 94 Oxygen O2 Source Room air I&O (Last 24 Hrs): Intake and Output Totals x24h 12/31/16 01/01/17 01/02/17 23:59 23:59 23:59 Intake Total 400 Balance 400 General: Alert, Oriented x3, Cooperative, No acute distress HEENT: Atraumatic, PERRLA, EOMI, Mucous membr. moist/pink Neck: Supple, No JVD, No thyromegaly, +2 carotid pulse wo bruit, No LAD Lymphatic: no adenopathy Neuro: Alert, Non Focal, CN 2-12 Grossly Intact, Oriented Times 3 Cardiovascular: Regular rate, Normal S1, Normal S2, No murmurs Respiratory: Chest non-tender, No respiratory distress, Wheezes, Other ( Decreased air movment in lower lungs) Abdomen: Normal bowel sounds, Soft, No tenderness, No hepatospenomegaly Extremities: No clubbing, No cyanosis, No edema, Normal pulses, No tenderness/ swelling Skin: No rashes, No breakdown - Results Results: Laboratory Results WBC 10.9 x10^3/uL (4.8-10.8) H 01/01/17 06:32 RBC 4.35 10^6/uL (4.20-5.40) 01/01/17 06:32 Hgb 13.8 g/dL (12.0-16.0) 01/01/17 06:32 Hct 41.4 % (37.0-47.0) 01/01/17 06:32 MCV 95.2 fL (81.0-99.0) 01/01/17 06:32 MCH 31.8 pg (27.0-31.0) H 01/01/17 06:32 MCHC 33.4 g/dL (32.0-36.0) 01/01/17 06:32 RDW 13.3 % (12.0-15.0) 01/01/17 06:32 Plt Count 136 10^3/uL (130-450) 01/01/17 06:32 MPV 8.3 fL (7.9-10.8) 01/01/17 06:32 Neut # 9.6 10^3/uL (1.5-6.6) H 01/01/17 06:32 Lymph # 0.5 10^3/uL (1.5-3.5) L 01/01/17 06:32 [place] # 0.8 10^3/uL (0.0-1.0) 01/01/17 06:32 Eos # 0.0 10^3/uL (0.0-0.7) 01/01/17 06:32 Baso # 0.0 10^3/uL (0.0-0.1) 01/01/17 06:32 Absolute Nucleated RBC 0.00 x10^3/uL 01/01/17 06:32 Nucleated RBC % 0.0 /100WBC 01/01/17 06:32 Sodium 138 mmol/L (135-145) 01/01/17 06:32 Potassium 3.5 mmol/L (3.5-5.0) 01/01/17 06:32 Chloride 104 mmol/L (101-111) 01/01/17 06:32 Carbon Dioxide 25 mmol/L (21-32) 01/01/17 06:32 Anion Gap 9.0 (6-13) 01/01/17 06:32 BUN 19 mg/dL (6-20) 01/01/17 06:32 Creatinine 1.0 mg/dL (0.4-1.0) 01/01/17 06:32 Estimated GFR (MDRD) 54 (>89) L 01/01/17 06:32 Glucose 120 mg/dL (70-100) H 01/01/17 06:32 Calcium 8.8 mg/dL (8.5-10.3) 01/01/17 06:32 Total Bilirubin 0.7 mg/dL (0.2-1.0) 01/01/17 06:32 AST 19 IU/L (10-42) 01/01/17 06:32 ALT 15 IU/L (10-60) 01/01/17 06:32 Alkaline Phosphatase 45 IU/L (42-121) 01/01/17 06:32 Troponin I < 0.04 ng/mL (<0.49) 01/01/17 06:32 Total Protein 6.4 g/dL (6.7-8.2) L 01/01/17 06:32 Albumin 3.9 g/dL (3.2-5.5) 01/01/17 06:32 Globulin 2.5 g/dL (2.1-4.2) 01/01/17 06:32 Albumin/Globulin Ratio 1.6 (1.0-2.2) 01/01/17 06:32 Lipase 18 U/L (22-51) L 01/01/17 06:32 - Procedures Procedures: Procedures REPLACEMENT OF LEFT LENS WITH SYNTH SUB, PERC APPROACH (02/16/15) REPLACEMENT OF RIGHT LENS WITH SYNTH SUB, PERC APPROACH (03/09/15)
[2017-01-02] MEDS ORDERED: CARBOXYMETHYLCELLULOSE OPHTH DROPS EACHEYE PRN (19:17)
[2017-01-02] MEDS: LATANOPROST 0.005% OPHTH DROPS EACHEYE SCH (20:55)
[2017-01-02] MEDS: ESCITALOPRAM 10 MG TABLET PO SCH (20:56)
[2017-01-02] MEDS: HYDROcod/ACETAM 5/325 MG TABLET PO PRN (21:00)
[2017-01-03] MEDS: ZOLPIDEM 5 MG TABLET PO PRN ×2 (01:30→21:34)
[2017-01-03 06:06] LABS: BASOPHILS % (AUTO) 0.1 %; EOSINOPHILS % (AUTO) 0.1 %; HGB - HEMOGLOBIN 13.3 g/dL (12.0-16.0); LYMPHOCYTES # (AUTO) 1.1 10^3/uL (1.5-3.5); LYMPHOCYTES % (AUTO) 10.5 %; MEAN CORPUSCULAR HEMOGLOBIN 31.8 pg (27.0-31.0); MEAN CORPUSCULAR HGB CONC 33.3 g/dL (32.0-36.0); MEAN CORPUSCULAR VOLUME 95.3 fL (81.0-99.0); MONOCYTES # (AUTO) 1.2 10^3/uL (0.0-1.0); MONOCYTES % (AUTO) 11.9 %; NEUTROPHILS # (AUTO) 8.1 10^3/uL (1.5-6.6); NEUTROPHILS % (AUTO) 77.4 %; RED BLOOD COUNT 4.19 10^6/uL (4.20-5.40); RED CELL DISTRIBUTION WIDTH 13.9 % (12.0-15.0); UNCORRECTED WHITE BLOOD COUNT 10.4 x10^3/uL; WHITE BLOOD COUNT 10.4 x10^3/uL (4.8-10.8)
[2017-01-03 06:13] LABS: ALBUMIN/GLOBULIN RATIO 1.1 (1.0-2.2); BILIRUBIN,TOTAL 0.3 mg/dL (0.2-1.0); BUN - BLOOD UREA NITROGEN 20 mg/dL (6-20); CALCIUM 9.2 mg/dL (8.5-10.3); CARBON DIOXIDE - CO2 27 mmol/L (21-32); CHLORIDE 106 mmol/L (101-111); CREATININE 0.8 mg/dL (0.4-1.0); GFR - MDRD 70 (>89); GLUCOSE 95 mg/dL (70-100); POTASSIUM 4.4 mmol/L (3.5-5.0); SODIUM 140 mmol/L (135-145)
[2017-01-03] MEDS: FORMOTEROL FUMARATE NEB 20 MCG/2 ML INH SCH ×2 (07:14→19:43)
[2017-01-03] MEDS: IPRATROPIUM/ALBUTEROL 3 ML NEB INH SCH ×4 (07:15→19:43)
[2017-01-03] MEDS: BUDESONIDE 0.5 MG/2 ML NEB INH SCH ×2 (07:15→19:43)
[2017-01-03] MEDS: SODIUM CHLORIDE FLUSH 0.9% 10 ML SYRINGE IVP SCH ×3 (08:55→21:38)
[2017-01-03] MEDS: FOLIC ACID 1 MG TABLET PO SCH (09:04)
[2017-01-03] MEDS: MULTIVITAMIN W/MINERALS TABLET PO SCH (09:04)
[2017-01-03] MEDS: DOXYCYCLINE 100 MG TABLET PO SCH ×2 (09:04→20:09)
[2017-01-03] MEDS: clonazePAM 0.5 MG TABLET PO SCH (09:04)
[2017-01-03] MEDS: LEVOTHYROXINE 25 MCG TABLET PO SCH (09:04)
[2017-01-03] MEDS: POLYETHYLENE GLYCOL 3350 17 GM PACKET PO SCH (09:05)
[2017-01-03] MEDS: ENOXAPARIN 40 MG/0.4 ML SYRINGE SUBQ SCH ×2 (09:06→10:50)
[2017-01-03] MEDS: methylPREDNISolone SUCCINATE 40 MG/ML VIAL IVP SCH (09:10)
[2017-01-03] MEDS: TIMOLOL 0.5% OPHTH DROPS EACHEYE SCH ×2 (09:11→20:09)
[2017-01-03] MEDS: BRIMONIDINE 0.1% OPHTH DROPS 5 ML RIGHTEYE SCH ×2 (09:11→20:09)
--- NOTE | 2017-01-03 12:12 | XRAY Report ---
TWO-VIEW CHEST: 01/03/2017 CLINICAL INDICATION: Cough, shortness of breath. COMPARISON: CT 01/01/2017, plain film 12/31/2016. FINDINGS: Frontal and lateral views of the chest demonstrate a normal cardiac silhouette. Postopera tive changes in the left chest are stable. Right lung mass is stable. No new infiltrate, effusion, or pneumothorax is evident. IMPRESSION: STABLE LEFT POSTOPERATIVE CHANGES AND RIGHT LUNG MASS. NO SIGNIFICANT INTERVAL CHANGE F ROM 12/31/2016. JOB #: [id number] EXT JOB #:[id number]
--- NOTE | 2017-01-03 13:50 | PROVIDER PROGRESS NOTE ---
Assessment/Plan - Problem List (1) Asthma exacerbation Qualifiers: Asthma severity: moderate Asthma persistence: unspecified Qualified Code( s): J45.901 - Unspecified asthma with (acute) exacerbation Assessment/Plan: Patient presented with a URI for the last 5 days with worsening symptoms over the last 2 days with dyspnea at rest. She tried taking prednisone and nebs at home but did not have significant improvement. She came into the ER yesterday and was discharged after treatment with nebs, antibiotics and steroids. Patient improved but then became acutely short of breath again prior to admission. She presented with dyspnea, hypoxia and was again given nebs and steroids with minimal improvement and admitted for asthma exacerbation. Patient underwent a CTA lungs due to history of cancer which was negative for PE. Etiology of exacerbation is likely URI and underlying lung cancer. Patient still coughing with deep inspiration and feels short of breath with exertion. Patient on room aie but still does not feel well enough to go home. She continues to have wheezing and fine crackles at the bases on exam. She does have improvement with neb treatments but then quickly worsens. She continues to have a cough but no fever or leukocytosis. Continue Duonebs prn, decrease IV steroids to daily, Budesonide BID, Formoterol BID and Doxycycline Acupella TID Monitor Order a chest xray today as she has a persistent cough and rhonchi and crackles on exam Not improved since yesterday and still not ready for discharge Qualifiers: Asthma severity: moderate Asthma persistence: unspecified Qualified Code( s): J45.901 - Unspecified asthma with (acute) exacerbation (2) Sinobronchitis Conclusion/Plan: Patients URI started with sinus congestion and then progressed to sore throat and coughing. Likely cause of asthma exacerbation Started on doxycycline and steroids Treat asthma exacerbation CT shows no signs of pneumonia Improving slowly (3) Lung cancer Conclusion/Plan: Patient has history of Lung Ca s/p left lower lobe resection, chemotherapy and now on immunotherapy Patient has spread into the right lung likely mets vs primary bronchogenic lesion with mets Patient presents with asthma exacerbation She is following with oncology as an outpatient We will treat asthma exacerbation and have patient follow up as outpatient. Qualifiers: Laterality: right Lung location: overlapping sites Qualified Code(s): C34.81 - Malignant neoplasm of overlapping sites of right bronchus and lung (4) Hypothyroidism Conclusion/Plan: Patient has history of hypothyroidism Patient on synthroid Appears stable Will continue home dose of synthroid (5) Depression Conclusion/Plan: Patient has history of depression On lexapro at home Stable Continue home meds Qualifiers: Depression Type: major depressive disorder (6) Anxiety Conclusion/Plan: History of anxiety Patient on klonapin at home Stable Continue klonapin (7) Prophylactic use of low molecular weight heparin for venous thromboembolism Conclusion/Plan: Place on lovenox for DVT prophylaxis - Current Meds Current Meds: Current Medications Generic Name Dose Route Start Last Admin Trade Name Freq PRN Reason Stop Dose Admin Acetaminophen/Hydrocodone Bitart 1 tab 01/01/17 08:36 01/02/17 21:00 [place] 5/325 PO 1 tab Q4HR PRN Administration PAIN Albuterol/Ipratropium 3 ml 01/01/17 09:00 01/03/17 11:07 Duoneb INH 3 ml RTQID LAN Administration Brimonidine Tartrate 1 drops 01/01/17 09:00 01/03/17 09:11 Alphagan P 0.1% Ophth Drops RIGHTEYE 1 drops BID LAN Administration Budesonide 0.5 mg 01/01/17 09:00 01/03/17 07:15 Pulmicort INH 0.5 mg RTBID LAN Administration Carboxymethylcellulose 0 drops 01/02/17 19:17 01/02/17 19:29 Refresh 1% Ophth Drops EACHEYE 1 drops PRN PRN Administration Dry Eye Clonazepam 0.5 mg 01/01/17 09:00 01/03/17 09:04 Klonopin PO 0.5 mg DAILY LAN Administration Doxycycline Hyclate 100 mg 01/01/17 12:00 01/03/17 09:04 Vibramycin PO 100 mg BID LAN Administration Enoxaparin Sodium 40 mg 01/01/17 14:00 01/03/17 10:50 Lovenox SUBQ 40 mg DAILY LAN Administration Escitalopram Oxalate 10 mg 01/01/17 21:00 01/02/17 20:56 Lexapro PO 10 mg 2100 LAN Administration Folic Acid 1 mg 01/01/17 09:00 01/03/17 09:04 PO 1 mg DAILY LAN Administration Formoterol Fumarate 20 mcg 01/01/17 09:00 01/03/17 07:14 Perforomist INH 20 mcg RTBID LAN Administration Latanoprost 1 drops 01/01/17 21:00 01/02/17 20:55 Xalatan Ophth Drops EACHEYE 1 drops QPM LAN Administration Levothyroxine Sodium 50 mcg 01/01/17 09:00 01/03/17 09:04 Synthroid PO 50 mcg DAILY LAN Administration Methylprednisolone 40 mg 01/03/17 09:00 01/03/17 09:10 Solu-Medrol (40mg Vial) IVP 40 mg DAILY LAN Administration Multivitamins/Minerals 1 tab 01/02/17 08:00 01/03/17 09:04 Theragran M PO 1 tab DAILYWM LAN Administration Polyethylene Glycol 17 gm 01/01/17 09:00 01/03/17 09:05 Miralax PO 17 gm DAILY LAN Administration Sodium Chloride 10 ml 01/01/17 14:00 01/03/17 09:10 Normal Saline Flush 0.9% IVP 20 ml Q8HR LAN Administration Timolol Maleate 1 drops 01/01/17 09:00 01/03/17 09:11 Timoptic 0.5% Ophth Drops EACHEYE 1 drops BID LAN Administration Zolpidem Tartrate 2.5 mg 01/01/17 08:34 01/03/17 01:30 Ambien PO 2.5 mg QPM PRN Administration Insomnia - Lab Result Lab results reviewed: Yes Fish Bone Diagrams: 01/03/17 05:16 01/03/17 05:16 - Diagnostic Imaging Results Diagnostic Imaging Results: Final report reviewed - Additional Planning Condition/Complexity: Guarded My Orders: My Active Orders 01/02/17 19:17 Carboxymethylcellulose 1% Opht [Refresh 1% Ophth Drops] 0 drops EACHEYE PRN PRN 01/03/17 09:00 methylPREDNISolone SUCCINATE [SOLU-Medrol (40MG VIAL)] 40 mg IVP DAILY Plan Discussed with:: Patient Time Spent: 31-60 minutes Subjective - Subjective Patient Reports: Shortness of Breath (She continues to have coughing spells and says she gets short of breath very easily. She denies any fevers or chills. No chest pain.) Nursing Reports: No Complaints Objective Vital Signs: Vital Signs - 24 hr 01/02/17 01/02/17 01/02/17 15:30 16:39 19:35 Temperature 37.1 C 36.9 C Heart Rate 86 88 Heart Rate [ 78 90 Brachial] Respiratory 16 16 16 Rate Blood Pressure 145/70 H 149/67 H [Left Brachial artery] O2 Saturation 96 95 01/03/17 01/03/17 01/03/17 00:15 05:20 07:14 Temperature 37.0 C 37.0 C Heart Rate 85 Heart Rate [ 74 77 Brachial] Respiratory 16 16 14 Rate Blood Pressure 143/70 H 146/71 H [Left Brachial artery] O2 Saturation 97 96 01/03/17 01/03/17 01/03/17 08:48 09:30 11:00 Temperature 36.7 C Heart Rate Heart Rate [ 88 Brachial] Respiratory 16 20 18 Rate Blood Pressure 119/59 L [Left Brachial artery] O2 Saturation 94 94 93 01/03/17 11:07 Temperature Heart Rate 76 Heart Rate [ Brachial] Respiratory 16 Rate Blood Pressure [Left Brachial artery] O2 Saturation Oxygen O2 Source Room air I&O (Last 24 Hrs): Intake and Output Totals x24h 01/01/17 01/02/17 01/03/17 23:59 23:59 23:59 Intake Total 770 1330 Balance 770 1330 General: Alert, Oriented x3, Cooperative, No acute distress HEENT: Atraumatic, PERRLA, EOMI, Mucous membr. moist/pink Neck: Supple, No JVD, No thyromegaly, +2 carotid pulse wo bruit, No LAD Lymphatic: no adenopathy Neuro: Alert, Non Focal, CN 2-12 Grossly Intact, Oriented Times 3 Cardiovascular: Regular rate, Normal S1, Normal S2, No murmurs Respiratory: Chest non-tender, No respiratory distress, Wheezes (scattered), Rales (bases), Rhonchi (lower right lung) Abdomen: Normal bowel sounds, Soft, No tenderness, No hepatospenomegaly, No masses Extremities: No clubbing, No cyanosis, No edema, Normal pulses Skin: No rashes, No breakdown - Results Results: Laboratory Results WBC 10.4 x10^3/uL (4.8-10.8) 01/03/17 05:16 RBC 4.19 10^6/uL (4.20-5.40) L 01/03/17 05:16 Hgb 13.3 g/dL (12.0-16.0) 01/03/17 05:16 Hct 40.0 % (37.0-47.0) 01/03/17 05:16 MCV 95.3 fL (81.0-99.0) 01/03/17 05:16 MCH 31.8 pg (27.0-31.0) H 01/03/17 05:16 MCHC 33.3 g/dL (32.0-36.0) 01/03/17 05:16 RDW 13.9 % (12.0-15.0) 01/03/17 05:16 Plt Count 140 10^3/uL (130-450) 01/03/17 05:16 MPV 9.0 fL (7.9-10.8) 01/03/17 05:16 Neut # 8.1 10^3/uL (1.5-6.6) H 01/03/17 05:16 Lymph # 1.1 10^3/uL (1.5-3.5) L 01/03/17 05:16 [place] # 1.2 10^3/uL (0.0-1.0) H 01/03/17 05:16 Eos # 0.0 10^3/uL (0.0-0.7) 01/03/17 05:16 Baso # 0.0 10^3/uL (0.0-0.1) 01/03/17 05:16 Absolute Nucleated RBC 0.00 x10^3/uL 01/03/17 05:16 Nucleated RBC % 0.0 /100WBC 01/03/17 05:16 Sodium 140 mmol/L (135-145) 01/03/17 05:16 Potassium 4.4 mmol/L (3.5-5.0) 01/03/17 05:16 Chloride 106 mmol/L (101-111) 01/03/17 05:16 Carbon Dioxide 27 mmol/L (21-32) 01/03/17 05:16 Anion Gap 7.0 (6-13) 01/03/17 05:16 BUN 20 mg/dL (6-20) 01/03/17 05:16 Creatinine 0.8 mg/dL (0.4-1.0) 01/03/17 05:16 Estimated GFR (MDRD) 70 (>89) L 01/03/17 05:16 Glucose 95 mg/dL (70-100) 01/03/17 05:16 Calcium 9.2 mg/dL (8.5-10.3) 01/03/17 05:16 Ionized Calcium NO 01/03/17 05:16 Total Bilirubin 0.3 mg/dL (0.2-1.0) 01/03/17 05:16 AST 16 IU/L (10-42) 01/03/17 05:16 ALT 15 IU/L (10-60) 01/03/17 05:16 Alkaline Phosphatase 38 IU/L (42-121) L 01/03/17 05:16 Troponin I < 0.04 ng/mL (<0.49) 01/01/17 06:32 Total Protein 6.0 g/dL (6.7-8.2) L 01/03/17 05:16 Albumin 3.1 g/dL (3.2-5.5) L 01/03/17 05:16 Globulin 2.9 g/dL (2.1-4.2) 01/03/17 05:16 Albumin/Globulin Ratio 1.1 (1.0-2.2) 01/03/17 05:16 Lipase 18 U/L (22-51) L 01/01/17 06:32 - Procedures Procedures: Procedures REPLACEMENT OF LEFT LENS WITH SYNTH SUB, PERC APPROACH (02/16/15) REPLACEMENT OF RIGHT LENS WITH SYNTH SUB, PERC APPROACH (03/09/15)
[2017-01-03] MEDS: LATANOPROST 0.005% OPHTH DROPS EACHEYE SCH (20:09)
[2017-01-03] MEDS: ESCITALOPRAM 10 MG TABLET PO SCH (20:09)
[2017-01-03] MEDS ORDERED: ACETAMINOPHEN 500 MG TABLET PO ONE (21:34)
[2017-01-04] MEDS: ZOLPIDEM 5 MG TABLET PO PRN (00:04)
[2017-01-04] MEDS ORDERED: ZOLPIDEM 5 MG TABLET PO PRN (02:00)
[2017-01-04 05:33] LABS: BASOPHILS % (AUTO) 0.5 %; EOSINOPHILS % (AUTO) 0.2 %; HCT - HEMATOCRIT 40.6 % (37.0-47.0); HGB - HEMOGLOBIN 13.5 g/dL (12.0-16.0); LYMPHOCYTES # (AUTO) 1.6 10^3/uL (1.5-3.5); LYMPHOCYTES % (AUTO) 21.6 %; MEAN CORPUSCULAR HEMOGLOBIN 31.7 pg (27.0-31.0); MEAN CORPUSCULAR HGB CONC 33.2 g/dL (32.0-36.0); MEAN CORPUSCULAR VOLUME 95.5 fL (81.0-99.0); MEAN PLATELET VOLUME 8.8 fL (7.9-10.8); MONOCYTES % (AUTO) 14.3 %; NEUTROPHILS # (AUTO) 4.6 10^3/uL (1.5-6.6); NEUTROPHILS % (AUTO) 63.4 %; NUCLEATED RED BLOOD CELLS AUTO 0.1 /100WBC; RED BLOOD COUNT 4.26 10^6/uL (4.20-5.40); RED CELL DISTRIBUTION WIDTH 13.5 % (12.0-15.0); UNCORRECTED WHITE BLOOD COUNT 7.2 x10^3/uL; WHITE BLOOD COUNT 7.2 x10^3/uL (4.8-10.8)
[2017-01-04 05:45] LABS: ALBUMIN/GLOBULIN RATIO 1.2 (1.0-2.2); BILIRUBIN,TOTAL 0.4 mg/dL (0.2-1.0); BUN - BLOOD UREA NITROGEN 22 mg/dL (6-20); CALCIUM 9.1 mg/dL (8.5-10.3); CARBON DIOXIDE - CO2 27 mmol/L (21-32); CHLORIDE 103 mmol/L (101-111); CREATININE 0.9 mg/dL (0.4-1.0); GFR - MDRD 61 (>89); GLUCOSE 89 mg/dL (70-100); POTASSIUM 4.1 mmol/L (3.5-5.0); SODIUM 139 mmol/L (135-145); TOTAL PROTEIN 5.6 g/dL (6.7-8.2)
[2017-01-04] MEDS: SODIUM CHLORIDE FLUSH 0.9% 10 ML SYRINGE IVP SCH ×2 (06:07→08:48)
[2017-01-04] MEDS: IPRATROPIUM/ALBUTEROL 3 ML NEB INH SCH ×3 (07:28→14:37)
[2017-01-04] MEDS: BUDESONIDE 0.5 MG/2 ML NEB INH SCH (07:28)
[2017-01-04] MEDS: FORMOTEROL FUMARATE NEB 20 MCG/2 ML INH SCH (07:28)
[2017-01-04] MEDS: DOXYCYCLINE 100 MG TABLET PO SCH (08:40)
[2017-01-04] MEDS: LEVOTHYROXINE 25 MCG TABLET PO SCH (08:41)
[2017-01-04] MEDS: clonazePAM 0.5 MG TABLET PO SCH (08:41)
[2017-01-04] MEDS: FOLIC ACID 1 MG TABLET PO SCH (08:41)
[2017-01-04] MEDS: MULTIVITAMIN W/MINERALS TABLET PO SCH (08:41)
[2017-01-04] MEDS: POLYETHYLENE GLYCOL 3350 17 GM PACKET PO SCH (08:43)
[2017-01-04] MEDS: methylPREDNISolone SUCCINATE 40 MG/ML VIAL IVP SCH (08:44)
[2017-01-04] MEDS: TIMOLOL 0.5% OPHTH DROPS EACHEYE SCH (08:49)
[2017-01-04] MEDS: BRIMONIDINE 0.1% OPHTH DROPS 5 ML RIGHTEYE SCH (08:52)
--- NOTE | 2017-01-04 11:04 | Discharge Plan ---
Discharge Plan Disposition: 01 Home, Self Care Condition: Good Prescriptions: Doxycycline Hyclate 50 mg PO BID #8 tablet. Ipratropium/Albuterol [Duoneb] 3 ml INH RTQID #20 vial Prednisone 40 mg PO DAILY #28 tablet Diet: Regular Activity Restrictions: Activity as Tolerated Shower Restrictions: No Driving Restrictions: No Weight Bearing: Full Weight Additional Instructions or Follow Up instructions: You presented with an asthma exacerbation and were treated in the hospital with nebulizer treatments, IV steroids and antibiotics. You have improved over the last 3 days and no longer are requiring oxygen. You have been able to walk the halls without significant decline in your breathing. You seem to be doing well enough that you will be able to go home. You were not found to have any evidence of pneumonia on your chest x-ray. You are being discharged home with prednisone for 7 days. Antibiotic called doxycycline which she will take twice a day for the next 4 days. You are also being given a prescription for duo nebs which I would like you to take twice a day for the next 3 days. Please slowly increase your exercise as you are able to tolerate it over the next week. Please do breathing exercises as we discussed when you are resting at home. No Smoking: If you smoke, Please STOP! Call for help. Follow-up with: Tona Flood PA-C [Primary Care Provider] -
[2017-01-04] MEDS ORDERED: predniSONE 20 MG TABLET PO SCH (12:00)
[2017-01-04 12:39] VITALS: BP 142/65
--- NOTE | 2017-01-04 14:50 | DISCHARGE SUMMARY ---
Discharge Summary Admit Date: 01/02/17 Discharge Date: 01/04/17 Discharging Provider: Brandon Barajas MD Primary Care Provider: Tona Flood [facility] Code Status: Attempt Resuscitation Condition at Discharge: Good Discharge Disposition: 01 Home, Self Care - DIAGNOSES Admission Diagnoses: 1. Asthma exacerbation 2. Sino bronchitis 3. Lung cancer 4. Hypothyroidism 5. Depression 6. Anxiety 7. Prophylactic use of low molecular weight heparin for venous thromboembolism Discharge Diagnoses with Status of Each Condition: 1. Asthma exacerbation: Resolving 2. Sinobronchitis: Resolving 3. Lung cancer: Stable 4. Hypothyroidism: Stable 5. Depression: Stable 6. Anxiety: Stable - HPI History of Present Illness: Patient is a 76-year-old female with a past medical history significant for breast cancer diagnosed in 1994 as invasive ductal carcinoma status post chemotherapy, radiation and vasectomy, lung cancer diagnosed in July 2011 status post left lower lobe lung resection, chemotherapy and currently on immunotherapy, hyperlipidemia, hypothyroidism, depression and anxiety who presented to the emergency department with a chief complaint of shortness of air. The patient states that she was in her normal state of health until about 5 days ago when she started having the symptoms of an upper respiratory infection. She states that she had nasal congestion, sore throat, runny nose and began having a dry cough. She states that typically when she gets a cold she does develop asthma exacerbation and in order to keep herself from going into exacerbation she typically starts using her nebulizer and steroids. The patient did have prednisone at home and started taking 40 mg of prednisone along with nebulizer treatments when she first started getting the cold. The patient states despite treatments 2 nights ago she became so short of air that she ended up coming to the emergency department. The patient was treated in the emergency department with nebulizer treatments as well as steroids and antibiotic. The patient states that she returned home initially was feeling better but then developed nausea and had a few episodes of vomiting which she thinks is likely due to the antibiotic she received in the emergency department. Patient states that she called her primary care physician Tona flood who advised her over the phone and the patient states that her nausea resolved. The patient states that she went to bed feeling better but then woke up in the middle the night with shortness of air and could not catch her breath. She states that at that point she called 911 and was brought into the emergency department. The patient denies any fevers at home, she denies any productive cough, she denies any recent sick contacts, she denies any hemoptysis , night sweats or recent unintentional weight loss. Patient denies any headaches, blurred vision, chest pain, abdominal pain, nausea , vomiting, diarrhea, constipation, urinary urgency, urinary frequency, dysuria , back pain, neck stiffness, changes in appetite, muscle aches, joint pain, joint swelling or focal neurologic deficits. On presentation to the emergency department the patient was afebrile, tachycardic, hypertensive and appeared to be in some respiratory distress saturating in the low 90s. The patient did develop a fever once she was admitted to the medical agrawal up to 38.4 Celsius. The patient had a mild leukocytosis of 10.9 otherwise her lab work was unremarkable. Patient's troponin was negative and the patient's EKG showed sinus tachycardia with LVH but no ischemic changes. The patient underwent a CT angios of the thorax given her history of cancer and concern for possible pulmonary embolism. The CT scan showed no evidence of pulmonary embolism, aortic aneurysm or aortic dissection. There was finding of multiple right lung lesions the largest in the right lower lobe measuring up to 5.1 cm and numerous smaller nodules in the right lower lobe as well as a lesion in the right middle lobe. The patient also had numerous largely subcentimeter mediastinal and hilar lymph nodes and a likely cyst on her liver as well as a bilateral low attenuation lesion on her kidneys which could also be cyst versus metastatic disease. The patient continued to have wheezing and was short of air despite several treatments with nebulizers in the emergency department therefore she was placed in observation for a asthma exacerbation. - HOSPITAL COURSE Hospital Course: Patient was treated during hospitalization for asthma exacerbation with duo nebs , IV Solu-Medrol, budesonide twice daily, formoterol twice daily and doxycycline. Over 3 day course in the hospital the patient was slowly weaned off of oxygen and had significant improvement in her symptoms. The patient's CT angiogram was negative for PE and pneumnoia however she did have a persistent cough and rhonchi on examination therefore chest x-ray was repeated this also was negative for a pneumonia. The patient did benefit from acupella treatment 3 times daily during the hospitalization. By the time of discharge the patient was able to ambulate in the halls without significant shortness of air and without dropping her oxygen saturation. The patient was discharged home on a 7 day course of oral prednisone 40 mg along with 4 additional days of doxycycline. The patient was also given a prescription for DuoNeb's and will use duo nebs twice a day for the next 3 days and then transition to as needed DuoNeb. The patient was instructed to continue using her Symbicort twice a day and slowly increase her exercise over the next week. The patient will follow up with her oncologist next week regarding her lung cancer. The patient was discharged home in stable condition and she seems to have plenty of support at home from her partner. - ALLERGIES Allergies/Adverse Reactions: Allergies Allergy/AdvReac Type Severity Reaction Status Date / Time alprazolam AdvReac Unknown Verified 01/01/17 06:10 gabapentin AdvReac Unknown Verified 01/01/17 06:10 hydromorphone HCl * AdvReac Unknown Verified 01/01/17 06:10 [From Dilaudid] prednisone AdvReac Hallucinati Verified 01/01/17 06:10 ons - MEDICATIONS Home Medications: Ambulatory Orders Medication Instructions Recorded Confirmed Albuterol Sulfate [Proair Hfa 1 - 2 puffs INH Q4H PRN 09/27/13 01/01/17 Inhaler] Latanoprost 1 drop EACHEYE QPM 09/27/13 01/01/17 Levothyroxine [Synthroid] 50 mcg PO DAILY 09/27/13 01/01/17 Timolol 0.5% Ophth Drops [Timoptic 1 drop EACHEYE BID 09/27/13 01/01/17 0.5% Ophth Drops] Brimonidine 0.1% Ophth Drops 1 drop RIGHTEYE BID 03/15/16 01/01/17 [Alphagan P 0.1% Ophth Drops] Budesonide/Formoterol Fumarate 2 puffs INH BID 03/15/16 01/01/17 [Symbicort 160-4.5 Mcg Inhaler] Escitalopram [Lexapro] 10 mg PO DAILY PM 03/16/16 01/01/17 Folic Acid 1 mg PO DAILY tablet 03/19/16 01/01/17 Multivitamin W/Minerals [Theragran 1 tab PO DAILYWM tablet 03/19/16 01/01/17 M] Prochlorperazine [Compazine] 5 mg PO Q6HR PRN #0 tablet 03/19/16 01/01/17 Zolpidem [Ambien] 2.5 mg PO QPM PRN #0 tablet 03/19/16 01/01/17 Omeprazole [PriLOSEC] 10 mg PO QDAC 01/01/17 01/01/17 clonazePAM [KlonoPIN] 0.5 mg PO DAILY PRN 01/01/17 01/01/17 Doxycycline Hyclate 50 mg PO BID #8 tablet. 01/04/17 Ipratropium/Albuterol [Duoneb] 3 ml INH RTQID #20 vial 01/04/17 Prednisone 40 mg PO DAILY #28 tablet 01/04/17 - PHYSICAL EXAM AT DISCHARGE General Appearance: positive: No acute distress, Alert Eyes Bilateral: positive: Normal inspection, PERRL, EOMI, No lid inflammation, Conjunctivae nml, No scleral icterus ENT: positive: ENT inspection nml, Pharynx nml, No signs of dehydration. negative: Purulent nasal drainage, Pharyngeal erythema, Oral lesions Neck: positive: Nml inspection, Thyroid nml, No JVD, Trachea midline. negative : Thyromegaly, Lymphadenopathy (R), Lymphadenopathy (L), Stiff neck, Carotid bruit, Tracheal deviation Respiratory: positive: Chest non-tender, No respiratory distress, Wheezes ( scattered ), Rhonchi (lower lung improve with deep breathing) Cardiovascular: positive: Regular rate & rhythm, No murmur, No gallop Peripheral Pulses: positive: 2+ Abdomen: positive: Non-tender, No organomegaly, Nml bowel sounds, No distention. negative: Guarding, Rebound, Hepatomegaly Back: positive: Nml inspection. negative: CVA tenderness (R), CVA tenderness (L ) Skin: positive: Color nml, No rash, Warm. negative: Cyanosis, Diaphoresis, Pallor Extremities: positive: Non-tender, Full ROM, Nml appearance, No pedal edema Neurologic/Psychiatric: positive: Oriented x3, CN's nml (2-12), Motor nml, Sensation nml, Mood/affect nml - LABS Result Diagrams: 01/04/17 05:00 01/04/17 05:00 Other Lab Results: Laboratory Results WBC 7.2 x10^3/uL (4.8-10.8) 01/04/17 05:00 RBC 4.26 10^6/uL (4.20-5.40) 01/04/17 05:00 Hgb 13.5 g/dL (12.0-16.0) 01/04/17 05:00 Hct 40.6 % (37.0-47.0) 01/04/17 05:00 MCV 95.5 fL (81.0-99.0) 01/04/17 05:00 MCH 31.7 pg (27.0-31.0) H 01/04/17 05:00 MCHC 33.2 g/dL (32.0-36.0) 01/04/17 05:00 RDW 13.5 % (12.0-15.0) 01/04/17 05:00 Plt Count 171 10^3/uL (130-450) 01/04/17 05:00 MPV 8.8 fL (7.9-10.8) 01/04/17 05:00 Neut # 4.6 10^3/uL (1.5-6.6) 01/04/17 05:00 Lymph # 1.6 10^3/uL (1.5-3.5) 01/04/17 05:00 [place] # 1.0 10^3/uL (0.0-1.0) 01/04/17 05:00 Eos # 0.0 10^3/uL (0.0-0.7) 01/04/17 05:00 Baso # 0.0 10^3/uL (0.0-0.1) 01/04/17 05:00 Absolute Nucleated RBC 0.00 x10^3/uL 01/04/17 05:00 Nucleated RBC % 0.1 /100WBC 01/04/17 05:00 Sodium 139 mmol/L (135-145) 01/04/17 05:00 Potassium 4.1 mmol/L (3.5-5.0) 01/04/17 05:00 Chloride 103 mmol/L (101-111) 01/04/17 05:00 Carbon Dioxide 27 mmol/L (21-32) 01/04/17 05:00 Anion Gap 9.0 (6-13) 01/04/17 05:00 BUN 22 mg/dL (6-20) H 01/04/17 05:00 Creatinine 0.9 mg/dL (0.4-1.0) 01/04/17 05:00 Estimated GFR (MDRD) 61 (>89) L 01/04/17 05:00 Glucose 89 mg/dL (70-100) 01/04/17 05:00 Calcium 9.1 mg/dL (8.5-10.3) 01/04/17 05:00 Ionized Calcium NO 01/04/17 05:00 Total Bilirubin 0.4 mg/dL (0.2-1.0) 01/04/17 05:00 AST 15 IU/L (10-42) 01/04/17 05:00 ALT 15 IU/L (10-60) 01/04/17 05:00 Alkaline Phosphatase 37 IU/L (42-121) L 01/04/17 05:00 Troponin I < 0.04 ng/mL (<0.49) 01/01/17 06:32 Total Protein 5.6 g/dL (6.7-8.2) L 01/04/17 05:00 Albumin 3.1 g/dL (3.2-5.5) L 01/04/17 05:00 Globulin 2.5 g/dL (2.1-4.2) 01/04/17 05:00 Albumin/Globulin Ratio 1.2 (1.0-2.2) 01/04/17 05:00 Lipase 18 U/L (22-51) L 01/01/17 06:32 - DIAGNOSTIC IMAGING Diagnostic Imaging Results: Final report reviewed Diagnostic Imaging Results Comments: CT angiogram lung Impression: 1. No evidence of pulmonary embolism, aortic aneurysm or aortic dissection. 2. Status post left lower lobectomy 3. Multiple right lung lesions, the largest in the right lower lobe measuring up to 5.1 cm with numerous smaller nodules in the right lower lobe as well as a lesion in the right middle lobe. Findings may be due to metastatic disease or primary bronchogenic lesion with adjacent metastasis. 4. Numerous largely subcentimeter mediastinal and hilar lymph nodes. 5. Low-attenuation hepatic lesion indeterminate although possibly cysts. 6. Bilateral renal low-attenuation lesions, the most prominent and ill-defined in the left kidney measuring 16 mm which may either represent a complex cyst versus metastatic disease. Chest x-ray Impression: Stable left postoperative changes in right lung mass. No significant interval change from 12-31-2016 - FOLLOW UP Follow Up: Patient was discharged home with a 7 day course of prednisone and to complete a seven-day course of doxycycline. The patient was also prescribed duo nebs and will continue on her Symbicort twice daily at home. The patient will follow up with her oncologist next week. - TIME SPENT Time Spent in Discharge (Minutes): 50 (Fax to PCP)
[2017-01-04] MEDS ORDERED: ACETAMINOPHEN 500 MG TABLET PO SCH (22:00)
== END 2017-01-04 15:25 | disposition home or self-care (01) | DRG 202 ==
LOC: EDUNIT# → ED 05:55 → SUPCPDRO 05:55 → OBS 07:07 → OBSVTOIN 01-02 10:57 → MS2 01-02 11:35
PROVIDERS: ADMIT Nurse Practitioner; ATTEND Internal Medicine
DX: J45.901 Unspecified asthma with (acute) exacerbation (principal); J44.9 Chronic obstructive pulmonary disease, unspecified; C34.32 Malignant neoplasm of lower lobe, left bronchus or lung; C34.81 Malignant neoplasm of overlapping sites of right bronchus and lung; J06.9 Acute upper respiratory infection, unspecified; R09.02 Hypoxemia; E78.5 Hyperlipidemia, unspecified; K21.9 Gastro-esophageal reflux disease without esophagitis; I51.7 Cardiomegaly; E03.9 Hypothyroidism, unspecified; F32.9 Major depressive disorder, single episode, unspecified; F41.9 Anxiety disorder, unspecified; Z90.2 Acquired absence of lung [part of]; Z87.891 Personal history of nicotine dependence; Z92.21 Personal history of antineoplastic chemotherapy; Z79.899 Other long term (current) drug therapy; Z85.3 Personal history of malignant neoplasm of breast; Z92.3 Personal history of irradiation
CPT/HCPCS: 36415; 71020; 71275; 80053; 83690; 84484; 85025; 93005; 94640; 94664; 96374; 96376; 99284; 99285

== ENCOUNTER 2017-05-30 08:00 | Outpatient (CLI) | payer MEDICARE, OTHER ==
[2017-05-30 13:49] LABS: BASOPHILS # (AUTO) 0.1 10^3/uL (0.0-0.1); BASOPHILS % (AUTO) 1.7 %; EOSINOPHILS # (AUTO) 0.5 10^3/uL (0.0-0.7); EOSINOPHILS % (AUTO) 10.1 %; HGB - HEMOGLOBIN 13.9 g/dL (12.0-16.0); LYMPHOCYTES # (AUTO) 0.8 10^3/uL (1.5-3.5); LYMPHOCYTES % (AUTO) 14.5 %; MEAN CORPUSCULAR HEMOGLOBIN 31.9 pg (27.0-31.0); MEAN CORPUSCULAR HGB CONC 34.4 g/dL (32.0-36.0); MEAN CORPUSCULAR VOLUME 92.8 fL (81.0-99.0); MEAN PLATELET VOLUME 9.3 fL (7.9-10.8); MONOCYTES # (AUTO) 0.6 10^3/uL (0.0-1.0); MONOCYTES % (AUTO) 10.8 %; NEUTROPHILS # (AUTO) 3.4 10^3/uL (1.5-6.6); NEUTROPHILS % (AUTO) 62.9 %; PLT - PLATELET COUNT 164 10^3/uL (130-450); RED BLOOD COUNT 4.35 10^6/uL (4.20-5.40); RED CELL DISTRIBUTION WIDTH 13.4 % (12.0-15.0); WHITE BLOOD COUNT 5.3 x10^3/uL (4.8-10.8)
[2017-05-30 14:11] LABS: ALBUMIN 3.9 g/dL (3.2-5.5); ALBUMIN/GLOBULIN RATIO 1.7 (1.0-2.2); ALKALINE PHOSPHATASE 43 IU/L (42-121); ALT ALANINE AMINOTRANSFERASE 10 IU/L (10-60); AST ASPARTATE AMINOTRANSFERASE 16 IU/L (10-42); BILIRUBIN,TOTAL 0.5 mg/dL (0.2-1.0); BUN - BLOOD UREA NITROGEN 21 mg/dL (6-20); CALCIUM 9.4 mg/dL (8.5-10.3); CARBON DIOXIDE - CO2 27 mmol/L (21-32); CHLORIDE 103 mmol/L (101-111); CHOL/HDL RATIO 4.3 (<4.4); CHOLESTEROL 302 mg/dL; CREATININE 1.1 mg/dL (0.4-1.0); GFR - MDRD 48 (>89); GLUCOSE 84 mg/dL (70-100); HDL CHOLESTEROL 71 mg/dL; LDL CHOLESTEROL,CALCULATED 212 mg/dL; SODIUM 141 mmol/L (135-145); TOTAL PROTEIN 6.2 g/dL (6.7-8.2); VLDL CHOLESTEROL 19 mg/dL
== END 2017-05-30 08:01 | disposition home or self-care (01) ==
LOC: LAB.R 08:00
PROVIDERS: ATTEND Physician Assistant Medical
DX: E55.9 Vitamin D deficiency, unspecified (principal); E78.2 Mixed hyperlipidemia; E03.9 Hypothyroidism, unspecified; Z79.899 Other long term (current) drug therapy
CPT/HCPCS: 80053; 80061; 82306; 83721; 84443; 85025

== ENCOUNTER 2017-05-31 00:18 | Emergency (ER) | payer MEDICARE, OTHER ==
[2017-05-31] MEDS ORDERED: IOPAMIDOL-300 100 ML VIAL ONE (01:12)
[2017-05-31] MEDS ORDERED: IOPAMIDOL-300 100 ML VIAL IVP ONE (01:35)
--- NOTE | 2017-05-31 01:56 | ED Physician Documentation ---
PD HPI CHEST PAIN - Stated complaint Stated Complaint: R CHEST WALL PX - Chief complaint Chief Complaint: Cardiac - History obtained from History obtained from: Patient, Family - History of Present Illness Timing - onset: Today Timing - onset during: Rest Timing - details: Gradual onset, Still present Quality: Sharp Location: Right chest Associated symptoms: No: Shortness of air, Diaphoresis, Nausea, Vomiting, Feeling faint / dizzy, General Weakness Similar symptoms before: Work up / diagnostics Recently seen: Not recently seen - Additional information Additional information: Patient is a 76 year old female with a history of metastatic breast and lung ca who is presenting to the emergency department for right sided chest pain that is worse with inspiration. Patient is no longer on chemotherapy or radiation Review of Systems Constitutional: denies: Fever, Chills Eyes: reports: Reviewed and negative Ears: reports: Reviewed and negative Nose: reports: Reviewed and negative Throat: reports: Reviewed and negative Cardiac: reports: Chest pain / pressure. 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 : None HEENT: Glaucoma Psych: Depression, Anxiety Musculoskeletal: None Derm: Eczema - Past Surgical History Past Surgical History: Yes General: Colonoscopy Ortho: ACL reconstruction /FLOORING HELPER: Hysterectomy Cardiovascular: Lobectomy HEENT: Tonsil/Adenoidectomy - Present Medications Home Medications: Ambulatory Orders Medication Instructions Recorded Confirmed Albuterol Sulfate [Proair Hfa 1 - 2 puffs INH Q4H PRN 09/27/13 01/01/17 Inhaler] Latanoprost 1 drop EACHEYE QPM 09/27/13 01/01/17 Levothyroxine [Synthroid] 50 mcg PO DAILY 09/27/13 01/01/17 Timolol 0.5% Ophth Drops [Timoptic 1 drop EACHEYE BID 09/27/13 01/01/17 0.5% Ophth Drops] Brimonidine 0.1% Ophth Drops 1 drop RIGHTEYE BID 03/15/16 01/01/17 [Alphagan P 0.1% Ophth Drops] Budesonide/Formoterol Fumarate 2 puffs INH BID 03/15/16 01/01/17 [Symbicort 160-4.5 Mcg Inhaler] Escitalopram [Lexapro] 10 mg PO DAILY PM 03/16/16 01/01/17 Folic Acid 1 mg PO DAILY tablet 03/19/16 01/01/17 Multivitamin W/Minerals [Theragran 1 tab PO DAILYWM tablet 03/19/16 01/01/17 M] Prochlorperazine [Compazine] 5 mg PO Q6HR PRN #0 tablet 03/19/16 01/01/17 Zolpidem [Ambien] 2.5 mg PO QPM PRN #0 tablet 03/19/16 01/01/17 Omeprazole [PriLOSEC] 10 mg PO QDAC 01/01/17 01/01/17 clonazePAM [KlonoPIN] 0.5 mg PO DAILY PRN 01/01/17 01/01/17 Doxycycline Hyclate 50 mg PO BID #8 tablet. 01/04/17 Ipratropium/Albuterol [Duoneb] 3 ml INH RTQID #20 vial 01/04/17 predniSONE [Prednisone] 40 mg PO DAILY #28 tablet 01/04/17 - Allergies Allergies/Adverse Reactions: Allergies Allergy/AdvReac Type Severity Reaction Status Date / Time hydromorphone HCl * AdvReac Unknown Verified 05/31/17 00:25 [From Dilaudid] prednisone AdvReac Hallucinati Verified 05/31/17 00:25 ons - Social History Does the pt smoke?: No Smoking Status: Never smoker Does the pt drink ETOH?: Yes Does the pt have substance abuse?: No - Immunizations Immunizations are current?: Yes - POLST Patient has POLST: Yes POLST Status: Full Code PD ED PE NORMAL - Vitals Vital signs reviewed: Yes - General General: Alert and oriented X 3 - HEENT HEENT: Atraumatic, PERRL, Moist mucous membranes - Neck Neck: Supple, no meningeal sign - Cardiac Cardiac: RRR, No murmur - Respiratory Respiratory: No respiratory distress - Abdomen Abdomen: Soft, Non tender, Non distended - Derm Derm: Normal color, No rash - Extremities Extremities: No deformity, No calf tenderness / cord - Neuro Neuro: Alert and oriented X 3, No motor deficit, Normal speech Eye Opening: Spontaneous Motor: Obeys Commands Verbal: Oriented GCS Score: 15 PD ED PE EXPANDED - General General: Alert, Anxious - Cardiac Cardiac: Other (scarring of right chest wall from prior masectomy site, no rash) Results - Vitals Vitals: Vital Signs - 24 hr 05/31/17 05/31/17 00:24 02:05 Temperature 36.1 C L Heart Rate 68 70 Respiratory 18 18 Rate Blood Pressure 158/71 H 134/64 H O2 Saturation 94 94 Oxygen O2 Source Room air - EKG (time done) 0025 Rate: Rate (enter#) (67) Rhythm: NSR [place]: Normal QRS: LVH Ischemia: Normal ST segments Compare to prior EKG: Unchanged from prior EKG PD MEDICAL DECISION MAKING - ED course Complexity details: reviewed old records, reviewed results, re-evaluated patient , considered differential, d/w patient, d/w family ED course: Patient was seen and examined at bedside. Due to patient's history PE could not be ruled out. Patient had blood work done the day before. Imaging was ordered. when patient returned the results were reviewed. there was no PE but there was an increase in size of patient's neoplasm and it was pushing on the pleura. Patient and partner were made aware of the findings. Patient required no further inpatient work up and was stable for discharge with outpatient follow up. Departure - Departure Disposition: 01 Home, Self Care Clinical Impression: Lung cancer Condition: Good Instructions: Lung Cancer Surg Comments: Your symptoms today are being caused by an increase and size of your lung masses. A disc has been made of your CT and you should follow up with your oncologist tomorrow for further evaluation and care. You may return to the emergency department at any time for new, worsening or uncontrollable symptoms.
--- NOTE | 2017-05-31 02:22 | CT Preliminary Report ---
Exam: CT CHEST ANGIO (PE) IMPRESSION: 1. No evidence of pulmonary embolism. 2. Enlargement of the numerous right lung nodules and masses, representing progressive neoplasm. The dominant lesions within the right lower lobe and the right upper lobe abut the pleural surface, which may account for the pleuritic chest pain experienced by the patient. 3. Prior left lower lobectomy and associated mild left lower hemithorax pleural and parenchymal scarr ing. [facility] SITE ID: [id number]
--- NOTE | 2017-05-31 02:33 | CT Report ---
EXAM: CT ANGIOGRAM CHEST EXAM DATE: 05/31/2017 01:40 AM. CLINICAL HISTORY: Pleuritic chest pain. History of lung cancer and lung resection. COMPARISON: 01/01/2017. TECHNIQUE: Routine helical imaging was performed through the chest in the pulmonary arterial phase. I V Contrast: 70 mL Isovue-300. Reconstructions: Coronal 3-D MIP reconstructions.Sagittal and coronal. In accordance with CT protocol optimization, one or more of the following dose reduction techniques w ere utilized for this exam: automated exposure control, adjustment of mA and/or KV based on patient s ize, or use of iterative reconstructive technique. FINDINGS: Pulmonary Arteries: There is adequate opacification through the segmental arteries. No evidence for a cute or chronic pulmonary emboli. Lungs and Pleura: Prior left lower lobectomy. Associated architectural distortion within the left hem ithorax noted, with areas of lingular atelectasis and/or scarring. Small pleural lymph node medially within the left lower hemithorax measuring 1.5 cm (image 92 series 5), again seen without significant change. Numerous right lung nodular lesions are noted, including a few scattered groundglass lesions with small internal solid components especially at the right apex. Dominant lesion is within the lat eral periphery of the right lower lobe, which has increased in size as well as density from the prior study. At this time, this measures 4.8 x 3.3 cm (image 88 series 6), previously 4.5 x 2.9 cm. Exten sive surrounding nodular abnormalities have also increased in size. Peribronchial consolidation withi n the anterior aspect of the right upper lobe with irregular margins has also increased in size and d ensity, now measuring 3.3 x 2.1 cm (image 58 series 6), versus previously 2.8 x 1.2 cm. Central Airways: Visualized central airways are without suspicious filling defects. Chest Wall: No significant abnormality. Thyroid: Subtle heterogeneous enlargement of the left thyroid lobe, with substernal extension. This i s stable from the prior study. Mediastinum: No significant abnormality. Heart: Moderate cardiomegaly. No pericardial effusion. Coronary vascular calcification. Aorta: Normal caliber. Upper Abdomen: Medium-sized hiatal hernia. Scattered low-density lesions within the liver are seen, d ifficult to characterize on this motion compromised study. These may represent cysts. Bones: No suspicious bony lesions evident. However, bones are osteopenic. This reduces exam sensitiv ity and specificity for detection of subtle bony lesions and/or fractures. Mid and lower thoracic ve rtebral hemangiomata are seen. Densely sclerotic focus within the lower thoracic vertebral body at T1 0, representing bone island. IMPRESSION: 1. No evidence of pulmonary embolism. 2. Enlargement of the numerous right lung nodules and masses, representing progressive neoplasm. The dominant lesions within the right lower lobe and the right upper lobe abut the pleural surface, which may account for the pleuritic chest pain experienced by the patient. 3. Prior left lower lobectomy and associated mild left lower hemithorax pleural and parenchymal scarr ing. [facility] Referring Provider Line: [phone] SITE ID: [id number]
[2017-05-31 02:35] VITALS: BP 114/76
== END 2017-05-31 03:00 | disposition home or self-care (01) ==
LOC: ED 00:18
DX: C34.90 Malignant neoplasm of unspecified part of unspecified bronchus or lung (principal); E03.9 Hypothyroidism, unspecified; Z85.3 Personal history of malignant neoplasm of breast; Z92.21 Personal history of antineoplastic chemotherapy; Z92.3 Personal history of irradiation; Z90.10 Acquired absence of unspecified breast and nipple; Z90.2 Acquired absence of lung [part of]
CPT/HCPCS: 71275; 93005; 99283; 99284; Q9967

== ENCOUNTER 2017-08-02 14:36 | Outpatient (CLI) | payer MEDICARE, OTHER ==
--- NOTE | 2017-08-02 14:41 | CONSULTATION NOTE ---
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 He has received multiple systemic therapies, immunotherapy, as well as some lesions have been treated with stereotactic ablative body radiation. Patient understands there is limited or no additional therapies that may have the benefit for her. She has explored other options but none that make sense. She reports at this point in time she would continue to accept gamma knife radiation to any new brain lesions, and possibly radiation to any chest lesions , as well as things that might be palliative in nature as far as relieving symptoms. Patient's expectation is that she will continue along for a while yet , she does understand the seriousness of her illness, but does appear to expect her prognosis to be several months to years. 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 Patient also has known history of breast cancer with diagnosis in 2010, she has had bilateral mastectomy, and ovaries removed. The complications described were difficulty with portacath and removal, and recurrent asthma exacerbations. Patient presents with low symptom burden, some osteoarthritic hip and knee pain , low-grade cyclic nausea, generalized anxiety disorder, and insomnia. 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 with surgery) : reports: None HEENT: reports: Glaucoma Psych: reports: Depression, Anxiety Musculoskeletal: reports: None Derm: reports: Eczema MRSA Hx?: No - Past Surgical History General: reports: Colonoscopy Ortho: reports: ACL reconstruction /PUBLIC ADDRESS SERVICER: reports: Hysterectomy Neuro: reports: Gamma knife (x 5 at [facility]) HEENT: reports: Tonsil/Adenoidectomy Other past surgical history: Bilateral mastectomy 02/09; left lower lung lobectomy 07/11 - Substance History Use: Uses substance without health or social issues: NONE, Tobacco (Hx of smoking) Social History - Living Situation Living arrangement: At home (Patient has lived on would be ongoing now almost 2 decades, and she is living with her partner who they have been together for 33 years. They are not nor does she have children. Obviously very supportive of each other as well as patient's goals) Living Situation: With spouse/s.o. Family History - Family History Family History: Mother: (father at 93; mother of old age at 86), Father: , CVA/TIA, Diabetes, Type 2, Sister: Alive and Well, Brother: Alive and Well Medications/Allergies - Medications Home Medications: Ambulatory Orders Medication Instructions Recorded Confirmed Albuterol Sulfate [Proair Hfa 1 - 2 puffs INH Q4H PRN 09/27/13 08/02/17 Inhaler] Latanoprost 1 drop EACHEYE QPM 09/27/13 08/02/17 Levothyroxine [Synthroid] 25 mcg PO DAILY 09/27/13 08/02/17 Timolol 0.5% Ophth Drops [Timoptic 1 drop EACHEYE BID 09/27/13 08/02/17 0.5% Ophth Drops] Brimonidine 0.1% Ophth Drops 1 drop RIGHTEYE BID 03/15/16 08/02/17 [Alphagan P 0.1% Ophth Drops] Escitalopram [Lexapro] 10 mg PO DAILY PM 03/16/16 08/02/17 Multivitamin W/Minerals [Theragran 1 tab PO DAILYWM tablet 03/19/16 08/02/17 M] Prochlorperazine [Compazine] 5 mg PO Q6HR PRN #0 tablet 03/19/16 08/02/17 Omeprazole [PriLOSEC] 10 mg PO QDAC 01/01/17 08/02/17 clonazePAM [KlonoPIN] 0.25 mg PO ACHS MDD titrating off 01/01/17 08/02/17 Budesonide/Formoterol Fumarate 2 puffs INH BID 08/02/17 08/02/17 [Symbicort 160-4.5 Mcg Inhaler] Folic Acid 400 mcg PO DAILY 08/02/17 08/02/17 Ipratropium/Albuterol [Duoneb] 3 ml INH PRN PRN 08/02/17 08/02/17 - Allergies Allergies/Adverse Reactions: Allergies Allergy/AdvReac Type Severity Reaction Status Date / Time hydromorphone HCl * AdvReac Unknown Verified 05/31/17 00:25 [From Dilaudid] prednisone AdvReac Hallucinati Verified 05/31/17 00:25 ons fragrances AdvReac Respiratory Uncoded 08/02/17 15:28 Review of Systems - Constitutional Constitutional: reports: Fatigue (patient complains of fatigue as symptom that is burdensome; has been working with titrating and adjusting medications.), Weight stable - Eyes Eyes: reports: Vision loss, Other (glaucoma) - Cardiovascular Cardiovascular: reports: Exertional dyspnea, Decr. exercise tolerance - Respiratory Respiratory: reports: SOB with exertion, Other (reports no recent exacerbations of asthma) - Gastrointestinal Gastrointestinal: reports: Nausea (reports low grade nausea late afternoon, has been taking compazine 5 mg with good relief), Reflux/heartburn, Early satiety ( patient attempts to address with small frequent meals). denies: Abdominal distention - Genitourinary Genitourinary: reports: Frequency. denies: Incontinence - Musculoskeletal Musculoskeletal: reports: Muscle weakness, Joint pain (knees/hips), Other (some difficulty with walking) - Integumentary Integumentary: reports: Dryness - Neurological Neurological: reports: Other (no residual neuro deficits from gamma knife surgeries or symptoms from brain mets) - Psychiatric Psychiatric: reports: Anxiety (long standing anxiety; exacerbated a few years ago resulting in panic attacks; currently trying titrate off clonazepam-as well as zolpidem; using CBD; still somewhat "jittery" and feeling some dissassociation) - Endocrine Endocrine: reports: Hypothyroidism (hx of thyroid nodules; on low dose to "keep in check" is her explaination) - Hematologic/Lymphatic Hematologic/Lymphatic: reports: Bruising (easily bruises). denies: Recurrent infections - All Other Systems All Other Systems: reports: Reviewed and negative Physical Exam - Vital Signs Pulse Rate: 72 Respiratory Rate: 18 Blood Pressure: 114/72 - Physical Exam General Appearance: positive: No acute distress, Alert Eyes Bilateral: positive: Other (slighty reddened conjuctivae) ENT: positive: No signs of dehydration Neck: positive: No JVD, Trachea midline Cardiovascular: positive: Regular rate & rhythm Respiratory: positive: Breath sounds nml Abdomen: positive: Soft Skin: positive: Dryness Extremities: positive: Pedal edema (trace pedal edema right greater than left) Neurologic/Psychiatric: positive: Oriented x3, Mood/affect nml Palliative Care - POLST Patient has POLST: Yes POLST Status: DNR, Selective Treatment Pain: Pain unchanged, Location (right hip/knees) Tiredness/Fatigue: Moderate (4-6) Drowsiness/Sedation: Mild (1-3) Nausea: Mild (1-3) Depression: Mild (1-3) Anxiety: Moderate (4-6) Dyspnea: Mild (1-3) Anorexia: Mild (1-3) Sleep: Sleeps well Constipation: No Feelings of wellbeing/Perceived Quality of Life: Good, Acceptable, No change Performance Status: Patient able to tolerate ambulating 10 minutes/has some activity intolerance and is pacing activities. Patient able to attend to ADLS. Does drive some, but [facility] provides most transportation to appointments. Would put her at a PPS of 80%. - Palliative Care Discussion: Patient's understanding currently regarding her treatment of her cancer is that anything that she moves towards to "cure" more likely is going to cause her more harm than good from her oncologist. She reports she is currently satisfied with her plan for surveillance, as well as willing to accept further intervention with Dr. Richmond. Patient is working on her "bucket list", does understand the seriousness of her illness, though expects a prolonged prognosis. Reports they do have DPOA set up with Ashley Conklin her partner , they are going to update their [place] and financial planning. We did discuss at length advanced directives, including her NELLIE ST, which at this point in time is DNAR and selectived treatments/DNI. Patient is very much interested in with dignity, this is because she has a history of asthma, and her greatest fear is having severe shortness of breath or struggles at end of life. She is hoping to have a at home, counseling regarding hospice and hospice benefit provided did discuss also the procedure around obtaining with dignity medications, and recommended contact with [facility] to set up with volunteer. Impression and Recommendations - Palliative Care Impression: This is a clovis 77-year-old woman with a history of indolent lung adenocarcinoma, history of prior systemic therapies, immunotherapy, and ongoing progression. At this point in time she is in surveillance, she is also to have known brain metastases, recently treated over the last several years with gamma knife radiosurgery, would accept this in the future. Patient here to establish rapport in relationship with palliative care, reviewed symptom burden, advanced directives, as well as goals of care Recommendations/Counseling Done: 1. Generalized anxiety disorder. In part of addressing her fatigue, she is trying to titrate off her zolpidem and clonazepam. She has been on both long- term, given her current description, I suspect she is having some withdrawal symptoms. She has also initiated CBD, has found this to be somewhat effective, but is having difficulty differentiating symptoms. Counseling regarding titration off benzodiazepines, particularly given her long history, suspect it may take several weeks before she feels the full effects. She currently is only on clonazepam 0.25 mg at bedtime, she has titrated off the zolpidem successfully, and is sleeping with a concentrated CBD oil. 2. Fatigue. This is multifactorial in origin. Counseling regarding increasing activity, she currently is walking 10 minutes a day, with poor activity tolerance. She does pace her activities, uses energy conservation techniques. Did encourage her to increase her activity tolerance, not by extending her walk but by adding a second short walk. She is in agreement to try. He also reviewed diet, hydration, patient is also using Compazine about 5 mg mid afternoon for low-grade nausea, given her dip in the afternoon of energy, suspect this may be contributing. Recommended she try a second dose of CBD to see if it is effective for nausea, and substitution. Ondansetron is not effective. 3. Advanced care planning. Reviewed the different advanced directives, and the implications and uses in her care. Recommended that both keep a copy of DPOAE with them, given their relationship. Patient did confirm after visit she does have her NELLIE [address] as DNAR on her POLST, discussed ways to better reflect her goals of care, we will redo at next visit. Addressed questions and process of with dignity, [facility] Did review patient needs to have a prognosis of 6 months or less, that she can still be pursuing palliative interventions, but for hospice she needs both 6 months or less and to be focused on comfort measures only. 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 No is signs or symptoms of depression or concern. Time Spent: 75 minutes with greater than 50% of this in counseling regarding continuum of care, hospice, with dignity, symptom management and the role of palliative care.
== END 2017-08-02 14:37 | disposition home or self-care (01) ==
LOC: PC 14:36
PROVIDERS: ATTEND Nurse Practitioner Adult Health
DX: Z51.5 Encounter for palliative care (principal); F41.1 Generalized anxiety disorder; R53.83 Other fatigue; C34.90 Malignant neoplasm of unspecified part of unspecified bronchus or lung; C79.31 Secondary malignant neoplasm of brain; J45.909 Unspecified asthma, uncomplicated; Z85.3 Personal history of malignant neoplasm of breast; Z90.13 Acquired absence of bilateral breasts and nipples; Z90.722 Acquired absence of ovaries, bilateral; Z90.2 Acquired absence of lung [part of]; Z87.891 Personal history of nicotine dependence; Z66 Do not resuscitate; Z92.3 Personal history of irradiation; Z79.899 Other long term (current) drug therapy
CPT/HCPCS: 99205

== ENCOUNTER 2017-09-04 08:00 | Outpatient (CLI) | payer MEDICARE, OTHER ==
[2017-09-04 14:27] LABS: BILIRUBIN,URINE NEGATIVE (NEGATIVE); GLUCOSE, URINE (UA) NEGATIVE (NEGATIVE); KETONES,URINE (UA) NEGATIVE (NEGATIVE); LEUKOCYTE ESTERASE, URINE NEGATIVE (NEGATIVE); NITRITE,URINE NEGATIVE (NEGATIVE); OCCULT BLOOD,URINE NEGATIVE (NEGATIVE); PROTEIN,URINE NEGATIVE (NEGATIVE); UROBILINOGEN,URINE 0.2 (NORMAL) E.U./dL (NORMAL)
[2017-09-04 14:57] LABS: CLARITY,URINE CLEAR (CLEAR)
== END 2017-09-04 08:01 | disposition home or self-care (01) ==
LOC: LAB.R 08:00
PROVIDERS: ATTEND Physician Assistant Medical
DX: N17.9 Acute kidney failure, unspecified (principal); R30.0 Dysuria
CPT/HCPCS: 81001; 81003; 82043; 87086

== ENCOUNTER 2017-09-04 22:01 | Outpatient (CLI) | payer MEDICARE, OTHER ==
--- NOTE | 2017-09-04 23:45 | Ultrasound Preliminary Report ---
Exam: US RETROPERITONEAL IMPRESSION: 1. No evidence of obstructive nephropathy. 2. Elevated resistive indices suggesting medical renal disease. [facility] The call report notification system was initiated by Dr. Marco Padron at 23:42 hrs on 09/04/17. The above findings were discussed with TONJA Flood by Dr. Marco Padron at 23:44 hrs o n 09/04/17. SITE ID: [id number]
--- NOTE | 2017-09-05 00:19 | Ultrasound Report ---
EXAM: RENAL ULTRASOUND EXAM DATE: 09/04/2017 11:24 PM. CLINICAL HISTORY: Acute renal insufficiency. COMPARISON: None. TECHNIQUE: Real-time scanning was performed with static images obtained. FINDINGS: Right Kidney: 9.5 x 6.1 x 6.3 cm. The resistive index measures 1.0. Normal echotexture. There is a 9 mm cortical cyst. No solid mass or hydronephrosis. Left Kidney: 9.2 x 4.6 x 5.1 cm. The resistive index measures 0.9. Normal echotexture. No evidence of stone, solid mass or hydronephrosis. There is a 1.3 cm cyst. Bladder: Bilateral jets seen. The prevoid bladder volume was 96.9 cc. The postvoid bladder volume was 2.8 cc. Other: None. IMPRESSION: 1. No evidence of obstructive nephropathy. 2. Elevated resistive indices suggesting medical renal disease. [facility]IA The call report notification system was initiated by Dr. Marco Padron at 23:42 hrs on 09/04/17. The above findings were discussed with TONJA Flood by Dr. Marco Padron at 23:44 hrs o n 09/04/17. Referring Provider Line: [phone] SITE ID: [id number]
== END 2017-09-04 22:02 | disposition home or self-care (01) ==
LOC: DI 22:01
PROVIDERS: ATTEND Physician Assistant Medical
DX: N17.9 Acute kidney failure, unspecified (principal); R30.0 Dysuria
CPT/HCPCS: 76770; 81001; 81003; 82043; 87086; 93975

== ENCOUNTER 2017-09-05 08:37 | Outpatient (CLI) | payer MEDICARE, OTHER ==
[2017-09-05 13:53] LABS: BASOPHILS # (AUTO) 0.1 10^3/uL (0.0-0.1); BASOPHILS % (AUTO) 2.5 %; EOSINOPHILS # (AUTO) 0.7 10^3/uL (0.0-0.7); EOSINOPHILS % (AUTO) 12.3 %; HGB - HEMOGLOBIN 11.4 g/dL (12.0-16.0); LYMPHOCYTES # (AUTO) 0.7 10^3/uL (1.5-3.5); LYMPHOCYTES % (AUTO) 13.6 %; MEAN CORPUSCULAR HEMOGLOBIN 32.1 pg (27.0-31.0); MEAN CORPUSCULAR HGB CONC 33.8 g/dL (32.0-36.0); MEAN PLATELET VOLUME 9.8 fL (7.9-10.8); MONOCYTES # (AUTO) 0.6 10^3/uL (0.0-1.0); MONOCYTES % (AUTO) 11.6 %; NEUTROPHILS # (AUTO) 3.3 10^3/uL (1.5-6.6); PLT - PLATELET COUNT 195 10^3/uL (130-450); RED BLOOD COUNT 3.54 10^6/uL (4.20-5.40); RED CELL DISTRIBUTION WIDTH 13.6 % (12.0-15.0); WHITE BLOOD COUNT 5.5 x10^3/uL (4.8-10.8)
[2017-09-05 13:57] LABS: CALCIUM 9.6 mg/dL (8.5-10.3); CREATININE 1.9 mg/dL (0.4-1.0)
== END 2017-09-05 08:38 | disposition home or self-care (01) ==
LOC: LAB.R 08:37
PROVIDERS: ATTEND Physician Assistant Medical
DX: N28.9 Disorder of kidney and ureter, unspecified (principal)
CPT/HCPCS: 80048; 85025

== ENCOUNTER 2017-09-08 14:45 | Emergency (ER) | payer MEDICARE, OTHER ==
[2017-09-08 15:18] LABS: BASOPHILS # (AUTO) 0.1 10^3/uL (0.0-0.1); BASOPHILS % (AUTO) 1.9 %; EOSINOPHILS # (AUTO) 0.7 10^3/uL (0.0-0.7); EOSINOPHILS % (AUTO) 10.4 %; HGB - HEMOGLOBIN 11.1 g/dL (12.0-16.0); LYMPHOCYTES % (AUTO) 14.2 %; MEAN CORPUSCULAR HEMOGLOBIN 32.7 pg (27.0-31.0); MEAN CORPUSCULAR HGB CONC 34.4 g/dL (32.0-36.0); MEAN CORPUSCULAR VOLUME 94.9 fL (81.0-99.0); MEAN PLATELET VOLUME 8.4 fL (7.9-10.8); MONOCYTES # (AUTO) 0.7 10^3/uL (0.0-1.0); MONOCYTES % (AUTO) 10.3 %; NEUTROPHILS # (AUTO) 4.4 10^3/uL (1.5-6.6); NEUTROPHILS % (AUTO) 63.2 %; PLT - PLATELET COUNT 190 10^3/uL (130-450); RED BLOOD COUNT 3.39 10^6/uL (4.20-5.40); RED CELL DISTRIBUTION WIDTH 13.8 % (12.0-15.0)
[2017-09-08 15:29] LABS: ALBUMIN 3.6 g/dL (3.2-5.5); ALBUMIN/GLOBULIN RATIO 1.1 (1.0-2.2); BILIRUBIN,TOTAL 0.5 mg/dL (0.2-1.0); CREATININE 2.1 mg/dL (0.4-1.0); TOTAL PROTEIN 6.9 g/dL (6.7-8.2)
--- NOTE | 2017-09-08 16:16 | ED Physician Documentation ---
History of Present Illness - Stated complaint Stated Complaint: CHEST PX - Chief complaint Chief Complaint: General - History obtained from History obtained from: Patient, Family - History of Present Illness Timing: Today Pain level max: 5 Pain level now: 4 Improved by: remaining still Worsened by: palpation, breathing - Additonal information Additional information: sharp r sided chest pain for 3 hours. constant. Feels like her prior pleurisy. 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 Also has chronic renal insufficiency. 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 with surgery) : None HEENT: Glaucoma Psych: Depression, Anxiety Musculoskeletal: None Derm: Eczema - Past Surgical History Past Surgical History: Yes General: Colonoscopy Ortho: ACL reconstruction /BATH STEWARD/STEWARDESS: Hysterectomy Cardiovascular: Lobectomy Neuro: Gamma knife (x 5 at [facility]) HEENT: Tonsil/Adenoidectomy - Present Medications Home Medications: Ambulatory Orders Medication Instructions Recorded Confirmed Albuterol Sulfate [Proair Hfa 1 - 2 puffs INH Q4H PRN 09/27/13 08/02/17 Inhaler] Latanoprost 1 drop EACHEYE QPM 09/27/13 08/02/17 Levothyroxine [Synthroid] 25 mcg PO DAILY 09/27/13 08/02/17 Timolol 0.5% Ophth Drops [Timoptic 1 drop EACHEYE BID 09/27/13 08/02/17 0.5% Ophth Drops] Brimonidine 0.1% Ophth Drops 1 drop RIGHTEYE BID 03/15/16 08/02/17 [Alphagan P 0.1% Ophth Drops] Escitalopram [Lexapro] 10 mg PO DAILY PM 03/16/16 08/02/17 Multivitamin W/Minerals [Theragran 1 tab PO DAILYWM tablet 03/19/16 08/02/17 M] Prochlorperazine [Compazine] 5 mg PO Q6HR PRN #0 tablet 03/19/16 08/02/17 Omeprazole [PriLOSEC] 10 mg PO QDAC 01/01/17 08/02/17 clonazePAM [KlonoPIN] 0.25 mg PO ACHS MDD titrating off 01/01/17 08/02/17 Budesonide/Formoterol Fumarate 2 puffs INH BID 08/02/17 08/02/17 [Symbicort 160-4.5 Mcg Inhaler] Folic Acid 400 mcg PO DAILY 08/02/17 08/02/17 Ipratropium/Albuterol [Duoneb] 3 ml INH PRN PRN 08/02/17 08/02/17 Hydrocodone/Acetaminophen 1 - 2 each PO Q6H PRN #14 tablet 09/08/17 [Hydrocodon-Acetaminophen 5-325] - Allergies Allergies/Adverse Reactions: Allergies Allergy/AdvReac Type Severity Reaction Status Date / Time hydromorphone HCl * AdvReac Unknown Verified 05/31/17 00:25 [From Dilaudid] prednisone AdvReac Hallucinati Verified 05/31/17 00:25 ons fragrances AdvReac Respiratory Uncoded 08/02/17 15:28 - Social History Does the pt smoke?: No Smoking Status: Never smoker Does the pt drink ETOH?: Yes Does the pt have substance abuse?: No - Immunizations Immunizations are current?: Yes - POLST Patient has POLST: Yes POLST Status: Full Code PD ED PE NORMAL - Vitals Vital signs reviewed: Yes - General General: Alert and oriented X 3, No acute distress - HEENT HEENT: Moist mucous membranes - Neck Neck: Supple, no meningeal sign - Cardiac Cardiac: RRR - Respiratory Respiratory: No respiratory distress, Clear bilaterally, Other (TTP over the R anterior chest wall, small area, can point with one finger. ) - Abdomen Abdomen: Soft, Non tender, Non distended - Back Back: No spinal TTP - Derm Derm: Warm and dry - Extremities Extremities: No edema, No calf tenderness / cord - Neuro Neuro: Alert and oriented X 3 - Psych Psych: Normal mood, Normal affect Results - Vitals Vitals: Vital Signs - 24 hr 09/08/17 09/08/17 14:49 17:01 Temperature 36.3 C L Heart Rate 78 70 Respiratory 16 16 Rate Blood Pressure 127/91 H 144/65 H O2 Saturation 97 95 Oxygen O2 Source Room air - EKG (time done) 1503 Rate: Rate (enter#) (72) Rhythm: NSR Frazer: Normal Intervals: Normal NE QRS: LVH Ischemia: Normal ST segments - Labs Labs: Laboratory Tests 09/08/17 09/08/17 09/08/17 15:04 15:04 15:04 WBC 7.0 RBC 3.39 L Hgb 11.1 L Hct 32.1 L MCV 94.9 MCH 32.7 H MCHC 34.4 RDW 13.8 Plt Count 190 MPV 8.4 Neut # (Auto) 4.4 Lymph # (Auto) 1.0 L Titus # (Auto) 0.7 Eos # (Auto) 0.7 Baso # (Auto) 0.1 Absolute Nucleated RBC 0.00 Nucleated RBC % 0.0 Sodium 136 Potassium 3.9 Chloride 101 Carbon Dioxide 27 Anion Gap 8.0 BUN 34 H Creatinine 2.1 H Estimated GFR (MDRD) 23 L Glucose 110 H Calcium 9.0 Total Bilirubin 0.5 AST 16 ALT 11 Alkaline Phosphatase 57 Troponin I < 0.04 Total Protein 6.9 Albumin 3.6 Globulin 3.3 Albumin/Globulin Ratio 1.1 Lipase 44 - Rads (name of study) cxr Radiology: Prelim report reviewed, EMP read contemporaneously, See rad report ( no acute abnormality. Grossly stable R lung mass and mets.) PD MEDICAL DECISION MAKING - ED course Complexity details: reviewed old records (prior radiographs), reviewed results, re-evaluated patient, considered differential (No ST elevation NM, no aortic dissection, no PE, no tension pneumothorax, no aortic aneurysm), d/w patient, d/ w family ED course: Patient is a 77-year-old female who presents to the emergency department with right-sided lung pain today. Appears to be chest wall pain, localized to a very small area, likely pleurisy. No calf tenderness. No tachycardia. No dyspnea, no hypoxia. No evidence of pulmonary embolus at this time. No evidence of acute coronary syndrome. She is very well-appearing, nontoxic. Will trial her on steroids as anti-inflammatories may worsen her chronic kidney disease. Patient and family counseled regarding signs and symptoms for which I believe and urgent re-evaluation would be necessary. Patient with good understanding of and agreement to plan and is comfortable going home at this time This document was made in part using voice recognition software. While efforts are made to proofread this document, sound alike and grammatical errors may occur. - Sepsis Event Vital Signs: Vital Signs - 24 hr 09/08/17 09/08/17 14:49 17:01 Temperature 36.3 C L Heart Rate 78 70 Respiratory 16 16 Rate Blood Pressure 127/91 H 144/65 H O2 Saturation 97 95 Oxygen O2 Source Room air Departure - Departure Disposition: Home, Self Care Clinical Impression: Pleurisy Condition: Good Instructions: ED Chest Pain Pleurisy Follow-Up: Tona Flood PA-C [Primary Care Provider] - Within 3 Days Prescriptions: Hydrocodone/Acetaminophen [Hydrocodon-Acetaminophen 5-325] 1 - 2 each PO Q6H PRN #14 tablet PRN Reason: pain Comments: Return if you worsen. This should improve over the next few days. Follow up with your doctor for further care. Do not drink alcohol or drive while on narcotic pain medicine. Note that many narcotic pain relievers also contain tylenol/acetaminophen. Please ensure that your total dose of acetaminophen from all sources does not exceed 3 grams (3000mg) per day. You may constipated on this medication, take a stool softener such as "Colace" twice a day while you are on it. Also recommend a [id number]-uwljufu laxative such as senna or MiraLAX any day that you do not have a bowel movement. If you received narcotic pain medication in the emergency department, do not drive or operate machinery for the next 24 hours. Discharge Date/Time: 09/08/17 16:50
[2017-09-08] MEDS ORDERED: HYDROcod/ACETAM 5/325 MG TABLET PO STA (16:28)
[2017-09-08] MEDS ORDERED: DEXAMETHASONE 10 MG/ML VIAL PO STA (16:28)
--- NOTE | 2017-09-08 16:40 | XRAY Preliminary Report ---
Exam: XR CHEST 2 VIEW X-RAY IMPRESSION: 1. No convincing acute cardiopulmonary abnormality. 2. Grossly stable right lung mass and smaller nodules, postoperative changes on the left. [facility] S[id number]
--- NOTE | 2017-09-08 16:40 | XRAY Report ---
EXAM: CHEST RADIOGRAPHY EXAM DATE: 09/08/2017 04:17 PM. CLINICAL HISTORY: Chest pain. COMPARISON: 01/03/[address] chest 05/31/2017. TECHNIQUE: 2 views. FINDINGS: Lungs/Pleura: Right lower lobe mass and multiple smaller nodules, grossly similar to the prior CT. Po stoperative changes in the left chest with left basal scarring and volume loss, similar to prior. Mil dly tortuous, calcified aorta. No new pulmonary opacity. Mediastinum: Heart and mediastinum appear stable. Other: None. IMPRESSION: 1. No convincing acute cardiopulmonary abnormality. 2. Grossly stable right lung mass and smaller nodules, postoperative changes on the left. [facility] Referring Provider Line: [phone] SITE ID: [id number]
[2017-09-08 17:02] VITALS: BP 144/65
[2017-09-08] MEDS ORDERED: CHERRY SYRUP 10 ML UDC PO ONE (17:06)
== END 2017-09-08 16:50 | disposition home or self-care (01) ==
LOC: ED 14:45
DX: R09.1 Pleurisy (principal); R94.31 Abnormal electrocardiogram [ECG] [EKG]; C34.90 Malignant neoplasm of unspecified part of unspecified bronchus or lung; C79.81 Secondary malignant neoplasm of breast; C79.31 Secondary malignant neoplasm of brain; N18.9 Chronic kidney disease, unspecified; E03.9 Hypothyroidism, unspecified; Z90.2 Acquired absence of lung [part of]
CPT/HCPCS: 36415; 71046; 80053; 83690; 84484; 85025; 93005; 99283; A9270

== ENCOUNTER 2017-09-12 08:25 | Outpatient (CLI) | payer MEDICARE, OTHER ==
[2017-09-12 12:04] LABS: CALCIUM 9.2 mg/dL (8.5-10.3); CREATININE 1.9 mg/dL (0.4-1.0)
== END 2017-09-12 08:26 | disposition home or self-care (01) ==
LOC: LAB.R 08:25
PROVIDERS: ATTEND Physician Assistant Medical
DX: N17.9 Acute kidney failure, unspecified (principal)
CPT/HCPCS: 80048

== ENCOUNTER 2017-09-17 10:12 | Outpatient (CLI) | payer MEDICARE, OTHER ==
[2017-09-17 13:01] LABS: CREATININE,URINE 58.2 mg/dL; PROTEIN/CREATININE RATIO,URINE 0.1 (<=0.2)
== END 2017-09-17 10:13 | disposition home or self-care (01) ==
LOC: LAB.R 10:12
PROVIDERS: ATTEND Internal Medicine Nephrology
DX: R80.9 Proteinuria, unspecified (principal)
CPT/HCPCS: 82570; 84156

== ENCOUNTER 2017-09-23 08:00 | Outpatient (CLI) | END 2017-09-23 08:01 | disposition home or self-care (01) ==

== ENCOUNTER 2017-09-25 11:06 | Outpatient (CLI) | payer MEDICARE, OTHER ==
[2017-09-27 11:51] LABS: GLOM BASEMENT MEMBRANE AB IGG <1.0 AI (<1.0)
[2017-09-27 16:47] LABS: COMPLEMENT COMPONENT C3C 112 mg/dL (83-193); COMPLEMENT COMPONENT C4C 26 mg/dL (15-57)
[2017-09-27 19:16] LABS: ANCA SCREEN NEGATIVE (NEGATIVE)
[2017-09-27 22:42] LABS: ALPHA 1 GLOBULIN 0.3 g/dL (0.2-0.3); ALPHA 2 GLOBULIN 0.8 g/dL (0.5-0.9); BETA 1 GLOBULIN 0.4 g/dL (0.4-0.6); BETA 2 GLOBULIN 0.3 g/dL (0.2-0.5); GAMMA GLOBULIN 0.6 g/dL (0.8-1.7)
== END 2017-09-25 11:07 | disposition home or self-care (01) ==
LOC: LAB 11:06
PROVIDERS: ATTEND Internal Medicine Nephrology
DX: M31.30 Wegener's granulomatosis without renal involvement (principal); N00.9 Acute nephritic syndrome with unspecified morphologic changes; D89.89 Other specified disorders involving the immune mechanism, not elsewhere classified; R80.9 Proteinuria, unspecified; D47.2 Monoclonal gammopathy
CPT/HCPCS: 36415; 81599; 83520; 83883; 84155; 84165; 86021; 86160

== ENCOUNTER 2017-10-01 13:55 | Outpatient (CLI) | payer MEDICARE, OTHER ==
--- NOTE | 2017-10-01 16:06 | CONSULTATION NOTE ---
Palliative Care Follow Up - Referral Referring Provider: Tona Flood PA-C Time of Visit: [id number] Referral setting: [facility] [place] Referral Reason: Lung Cancer/Brain mets/Goals of Care - Information Sources Records reviewed: Previous records reviewed History/Review of Systems obtained from: Patient Exam limitations: No limitations - History of Present Illness Update Brief HPI Update: This is a clovis 77-year-old woman with a history of what she describes as indolent lung adenocarcinoma, she has had brain metastases that have been successfully treated with gamma knife radiosurgery over several years. She has received multiple systemic therapies, immunotherapy, as well as some lesions have been treated with stereotactic ablative body radiation. Patient understands there is limited or no additional therapies that may have the benefit for her. Patient's expectation is that she will continue along for a while yet, she does understand the seriousness of her illness, but does appear to expect her prognosis to be several months to years. Patient also has known history of breast cancer with diagnosis in 2010, she has had bilateral mastectomy, and ovaries removed. The complications described were difficulty with portacath and removal, and recurrent asthma exacerbations. She recently had an ED visit for severe right chest pain, was thought to be attributed to pleurisy. She has been on dexamethasone and now tapering with good response. She did have a chest x-ray during her workup that showed grossly stable right lung mass and smaller nodules. Also in her follow-up to get an MRI for her brain metastases, it was found that she also had renal insufficiency. She has seen Dr. George, the manager medicare, at this point there is nothing more to do for her, other than to monitor her medications and labs. She though is committed to trying acupuncture to see if she can get some relief or improvement in her renal function. She is drinking more water, her improved hydration status has helped her nausea and fatigue, though the fatigue remains her most pressing symptom. Social History - Living Situation Living arrangement: At home Living Situation: With spouse/s.o. (Patient's with life partner, Ashley Green. Ashley is a cg for patient and her 98 yr old mother. S/O taking a two week vacation to [facility], patient has lifeline and check in schedule with neighbors.) Medications/Allergies - Medications Home Medications: Ambulatory Orders Medication Instructions Recorded Confirmed Albuterol Sulfate [Proair Hfa 1 - 2 puffs INH Q4H PRN 06/29/14 07/03/18 Inhaler] Latanoprost 1 drop EACHEYE QPM 09/27/13 10/01/17 Levothyroxine [Synthroid] 25 mcg PO DAILY 09/27/13 10/01/17 Timolol 0.5% Ophth Drops [Timoptic 1 drop EACHEYE BID 09/27/13 10/01/17 0.5% Ophth Drops] Brimonidine 0.1% Ophth Drops 1 drop RIGHTEYE BID 03/15/16 10/01/17 [Alphagan P 0.1% Ophth Drops] Escitalopram [Lexapro] 10 mg PO DAILY PM 03/16/16 10/01/17 Prochlorperazine [Compazine] 5 mg PO Q6HR PRN #0 tablet 03/19/16 10/01/17 Omeprazole [PriLOSEC] 10 mg PO QDAC 01/01/17 10/01/17 clonazePAM [KlonoPIN] 0.25 mg PO QPM MDD titrating off 01/01/17 10/01/17 Budesonide/Formoterol Fumarate 2 puffs INH BID 08/02/17 10/01/17 [Symbicort 160-4.5 Mcg Inhaler] Folic Acid 400 mcg PO DAILY 08/02/17 10/01/17 Ipratropium/Albuterol [Duoneb] 3 ml INH PRN PRN 08/02/17 10/01/17 Dexamethasone 2 mg PO DAILY MDD taper for 10/01/17 10/01/17 pleurisy - Allergies Allergies/Adverse Reactions: Allergies Allergy/AdvReac Type Severity Reaction Status Date / Time hydromorphone HCl * AdvReac Unknown Verified 05/31/17 00:25 [From Dilaudid] prednisone AdvReac Hallucinati Verified 05/31/17 00:25 ons fragrances AdvReac Respiratory Uncoded 08/02/17 15:28 Review of Systems - Constitutional Constitutional: reports: Fatigue (some improvement with dexamethasone; still problematic). denies: Fever - Eyes Eyes: reports: Vision loss, Corrective lenses - Ears, Nose & Throat Ears, Nose & Throat: reports: Dry mouth - Cardiovascular Cardiovascular: reports: Chest pain (had visit to ED 09/08 for acute right chest pain/feels most likely pleurisy; no pain currently on taper of dexamethasone). denies: Edema - Respiratory Respiratory: reports: SOB with exertion, Pleuritic pain. denies: Cough, SOB at rest - Gastrointestinal Gastrointestinal: reports: Nausea (improved with increase water intake; only intermittently), Good appetite. denies: Constipation, Reflux/heartburn - Musculoskeletal Musculoskeletal: reports: Muscle weakness - Integumentary Integumentary: reports: Dryness - Neurological Neurological: reports: General weakness - Psychiatric Psychiatric: reports: Anxiety. denies: Depression - Endocrine Endocrine: reports: Hypothyroidism - Hematologic/Lymphatic Hematologic/Lymphatic: reports: Anemia, Bruising. denies: Recurrent infections - All Other Systems All Other Systems: reports: Reviewed and negative Physical Exam - Vital Signs Pulse Rate: 74 Respiratory Rate: 18 Blood Pressure: 130/74 - Physical Exam General Appearance: positive: No acute distress, Anxious Eyes Bilateral: positive: Normal inspection ENT: positive: No signs of dehydration Neck: positive: No JVD, Trachea midline Cardiovascular: positive: Regular rate & rhythm Respiratory: positive: Other (clear without wheezing; right base diminished but no change) Abdomen: positive: Soft, Nml bowel sounds Skin: positive: Pallor, Dryness Extremities: positive: Pedal edema (trace to 1+ bilat) Neurologic/Psychiatric: positive: Oriented x3, Mood/affect nml Palliative Care - POLST Patient has POLST: Yes POLST Status: DNR, Selective Treatment (updated today during visit) Pain: Pain improved, Location (right chest attributed to pleurisy; no longer needing pain medication) Tiredness/Fatigue: Moderate (4-6) Drowsiness/Sedation: Moderate (4-6) Nausea: None Depression: Mild (1-3) Dyspnea: Mild (1-3) Anorexia: Mild (1-3) Sleep: Sleeps well, Other (needed zolpidem during higher doses of decadron; okay now) Constipation: No Feelings of wellbeing/Perceived Quality of Life: Good, Acceptable Performance Status: patient able to attend to ADLs, ambulate short distances; paces activity - Palliative Care Discussion: Patient is quite proud of herself, she has finished her will, her durable power of health trade mark attorney, and her directive. She did not bring her NELLIE ST, but in review it does appear to needed be updated. We did redo her NELLIE ST to be reflective of her goals, and updated. I will get a copy to her primary care as well as to [facility]. Counseling done regarding goals of care, addressed questions and concerns, and discussed patient's wishes for end-of-life Results - Lab Results Lab results reviewed: Yes Impression and Recommendations - Palliative Care Impression: This is a clovis 77-year-old woman with a history of indolent lung adenocarcinoma, history of prior systemic therapies as well as immunotherapy, and slow ongoing progression. She is currently in surveillance, she does have known brain metastases, has been recently treated with gamma knife radiosurgery , and would accept this in the future. She has had an acute exacerbation of right chest plane, this is been attributed to pleurisy, this is improving as well as a new diagnosis of renal insufficiency. Palliative care to continue provide support regarding patient's goals of care, anxiety, and transition to hospice when appropriate Recommendations/Counseling Done: 1Pleurisy right chest. Patient is on dexamethasone taper, currently at 2 mg daily. She is supposed to discontinue in a few days, she has found it beneficial as far as her fatigue, breathing, and energy. Did discuss in the context of equal dosing compared to prednisone, and she may want to taper down further to 1 mg every few days before discontinuing. If she has side effects or withdrawal symptoms, she will initiate as she does have 1 mg tabs. 2. Anxiety. Patient is to finding acupuncture supportive as well, she is working with meditation, and has found some things that are of help to her. Counseling regarding normalizing her concerns and fears, as well as support to strengthen her current coping mechanisms. Did encourage her to try [employer] retreats for cancer patients, as it is somewhat in alignment of her goals for support for herself. 3. Fatigue. This is multi-a factorial in origin. She has seen Dr. George, her hematocrit is quite low. She has not had any iron studies that are in the system since 2016. Will follow up with PCP if want to further pursue this. She is only taking folic acid at this point in time. We did discuss healthy eating regarding her diagnosis of anemia. 4. Advanced care planning. We did review her work she had done regarding her advanced directives, we also completed a NELLIE ST to be reflective of her current wishes. Counseling done regarding goals of care and anticipatory guidance. Time Spent: 60 minutes with good than 50% of this done in counseling regarding anxiety, symptom burden, and advanced care planning as well as anticipatory guidance.
== END 2017-10-01 13:56 | disposition home or self-care (01) ==
LOC: PC 13:55
PROVIDERS: ATTEND Nurse Practitioner Adult Health
DX: Z51.5 Encounter for palliative care (principal); R09.1 Pleurisy; F41.9 Anxiety disorder, unspecified; D64.9 Anemia, unspecified; N28.9 Disorder of kidney and ureter, unspecified; C34.91 Malignant neoplasm of unspecified part of right bronchus or lung; C79.31 Secondary malignant neoplasm of brain; Z85.3 Personal history of malignant neoplasm of breast; Z66 Do not resuscitate; Z92.3 Personal history of irradiation; Z79.899 Other long term (current) drug therapy
CPT/HCPCS: 99215

== ENCOUNTER 2017-10-03 08:56 | Outpatient (CLI) | payer MEDICARE, OTHER ==
[2017-10-03 14:12] LABS: BASOPHILS % (AUTO) 0.5 %; EOSINOPHILS # (AUTO) 0.3 10^3/uL (0.0-0.7); EOSINOPHILS % (AUTO) 2.7 %; HGB - HEMOGLOBIN 12.3 g/dL (12.0-16.0); LYMPHOCYTES % (AUTO) 20.6 %; MEAN CORPUSCULAR HEMOGLOBIN 32.9 pg (27.0-31.0); MEAN CORPUSCULAR HGB CONC 33.9 g/dL (32.0-36.0); MEAN CORPUSCULAR VOLUME 97.1 fL (81.0-99.0); MEAN PLATELET VOLUME 8.9 fL (7.9-10.8); MEAN RETIC VALUE 118.9; MONOCYTES # (AUTO) 1.1 10^3/uL (0.0-1.0); MONOCYTES % (AUTO) 11.1 %; NEUTROPHILS # (AUTO) 6.2 10^3/uL (1.5-6.6); NEUTROPHILS % (AUTO) 65.1 %; PLT - PLATELET COUNT 217 10^3/uL (130-450); RED BLOOD COUNT 3.72 10^6/uL (4.20-5.40); RED CELL DISTRIBUTION WIDTH 14.4 % (12.0-15.0); WHITE BLOOD COUNT 9.6 x10^3/uL (4.8-10.8)
[2017-10-03 14:52] LABS: FERRITIN 154.5 ng/mL (11.0-306.8)
== END 2017-10-03 08:57 | disposition home or self-care (01) ==
LOC: LAB.R 08:56
PROVIDERS: ATTEND Physician Assistant Medical
DX: D64.9 Anemia, unspecified (principal); N17.9 Acute kidney failure, unspecified
CPT/HCPCS: 82607; 82728; 83010; 85025; 85044; 86880

== ENCOUNTER 2017-10-18 08:57 | Outpatient (CLI) | payer MEDICARE, OTHER ==
[2017-10-18 15:46] LABS: CREATININE 1.7 mg/dL (0.4-1.0)
== END 2017-10-18 08:58 | disposition home or self-care (01) ==
LOC: LAB.R 08:57
PROVIDERS: ATTEND Internal Medicine Nephrology
DX: N05.9 Unspecified nephritic syndrome with unspecified morphologic changes (principal)
CPT/HCPCS: 80048

== ENCOUNTER 2017-11-04 15:23 | Outpatient (CLI) | payer MEDICARE, OTHER ==
--- NOTE | 2017-11-04 20:54 | CONSULTATION NOTE ---
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 She has received multiple systemic therapies, immunotherapy, as well as lesions have been treated with stereotactic ablative radiation. Patient does understand there are very few other options for her lung cancer, but that she may be able to have further gamma knife radiosurgery if needed for recurrent brain mets. Patient had recent visit to the ED in August, with right chest pain, was attributed to pleurisy, has since resolved with no further pain. She has tapered off her dexamethasone successfully. She is also seeing Dr. العلي senior storage engineer, for worsening renal function discovered when she was scheduling an MRI. Her labs on 10/18 with improved slightly with the BUN going from 34-18 creatinine 2.0-1.7 but her GFR is still sitting at 29. She has been drinking more, using acupuncture, her most prevalent symptoms continue to be nausea, fatigue, and anxiety. Social History - Living Situation Living arrangement: At home Living Situation: With spouse/s.o. (Her partner is also caring for her 98-year- old mother, has many stressors, and though is available is getting ready for trip without patient. She does have a plan with lifeline/neighbors checking in.) Medications/Allergies - Medications Home Medications: Ambulatory Orders Medication Instructions Recorded Confirmed Albuterol Sulfate [Proair Hfa 1 - 2 puffs INH Q4H PRN 09/27/13 11/04/17 Inhaler] Latanoprost 1 drop EACHEYE QPM 09/27/13 11/04/17 Levothyroxine [Synthroid] 25 mcg PO DAILY 09/27/13 11/04/17 Timolol 0.5% Ophth Drops [Timoptic 1 drop EACHEYE BID 09/27/13 11/04/17 0.5% Ophth Drops] Brimonidine 0.1% Ophth Drops 1 drop RIGHTEYE BID 03/15/16 11/04/17 [Alphagan P 0.1% Ophth Drops] Escitalopram [Lexapro] 10 mg PO DAILY PM 03/16/16 11/04/17 Prochlorperazine [Compazine] 5 mg PO Q6HR PRN #0 tablet 03/19/16 11/04/17 Omeprazole [PriLOSEC] 10 mg PO QDAC 01/01/17 11/04/17 clonazePAM [KlonoPIN] 0.12 mg PO BID 01/01/17 11/04/17 Budesonide/Formoterol Fumarate 2 puffs INH BID 08/02/17 11/04/17 [Symbicort 160-4.5 Mcg Inhaler] Folic Acid 400 mcg PO DAILY 08/02/17 11/04/17 Ipratropium/Albuterol [Duoneb] 3 ml INH PRN PRN 08/02/17 11/04/17 - Allergies Allergies/Adverse Reactions: Allergies Allergy/AdvReac Type Severity Reaction Status Date / Time hydromorphone HCl * AdvReac Unknown Verified 05/31/17 00:25 [From Dilaudid] prednisone AdvReac Hallucinati Verified 05/31/17 00:25 ons fragrances AdvReac Respiratory Uncoded 08/02/17 15:28 Review of Systems - Constitutional Constitutional: reports: Fatigue, Weight loss (small amount about 5 pounds over last several months). denies: Fever - Ears, Nose & Throat Ears, Nose & Throat: reports: Other (recent crown loss/no pain) - Cardiovascular Cardiovascular: reports: Exertional dyspnea, Decr. exercise tolerance - Respiratory Respiratory: reports: SOB with exertion. denies: Cough, SOB at rest, Pleuritic pain (resolved) - Gastrointestinal Gastrointestinal: reports: Nausea, Reflux/heartburn, Early satiety. denies: Constipation - Genitourinary Genitourinary: reports: Frequency (with increased fluid intake) - Musculoskeletal Musculoskeletal: reports: Muscle weakness, Joint pain (right hip;) - Integumentary Integumentary: reports: Dryness - Neurological Neurological: reports: General weakness - Psychiatric Psychiatric: reports: Anxiety - Hematologic/Lymphatic Hematologic/Lymphatic: reports: Anemia - All Other Systems All Other Systems: reports: Reviewed and negative Physical Exam - Vital Signs Pulse Rate: 79 Respiratory Rate: 18 O2 Saturation: 96 (ra @ rest) Blood Pressure: 138/77 - Physical Exam General Appearance: positive: No acute distress, Anxious Eyes Bilateral: positive: Normal inspection, Other (conjunctivae reddened) ENT: positive: No signs of dehydration Neck: positive: No JVD, Trachea midline Cardiovascular: positive: Regular rate & rhythm Respiratory: positive: Diminished in bases (left greater than left). negative: Wheezes, Rales, Rhonchi Abdomen: positive: Soft Skin: positive: Dryness Extremities: positive: No pedal edema Neurologic/Psychiatric: positive: Oriented x3, Mood/affect nml Palliative Care - POLST Patient has POLST: Yes POLST Status: DNR, Selective Treatment Pain: Location (right hip pain mild; left foot pain positional-neither needing medications) Tiredness/Fatigue: Moderate (4-6) Drowsiness/Sedation: Mild (1-3) Nausea: Mild (1-3) Depression: Moderate (4-6) Anxiety: Moderate (4-6) Dyspnea: Moderate (4-6) Anorexia: Mild (1-3), Weight loss (146.7) Sleep: Sleeps well Constipation: No Feelings of wellbeing/Perceived Quality of Life: Good, Acceptable, No change Performance Status: Patient is independent in her ADLs, she does have to pace herself secondary to shortness of breath and poor activity tolerance. Would put her at a PPS of 80% - Palliative Care Discussion: Discussion regarding in particular patient's anxiety, she has been told by her providers To enjoy life, she has been told by the oncologist it is very slow growing and not to worry about it. She reports "it is not a my nature" to not worry. She has had years as far as interventions regarding her lung cancer, it feels very strange for her not to have appointments or to be actively involved in treatment. We did take down some into her anxiety, she had a friend who recently of pancreatic cancer with a fairly rapid demise. She is quite reflective and feeling quite vulnerable in the context of this and how it has impacted her friends. She does worry about her partner Ashley, who is worrying about her mother taking more time, and less time for them as a couple. She is quite understanding of this but it has been difficult. We also discussed some regarding her anxiety and explored this, she is doing some ongoing counseling and support, does use meditation, is using just a quarter of a clonazepam twice a day and though she perceives this might be a placebo effect she is finding it helpful Results - Lab Results Lab results reviewed: Yes Impression and Recommendations - Palliative Care Impression: This is a clovis 77-year-old woman with a history of indolent lung adenocarcinoma, with a history of multiple prior systemic therapies and immunotherapy. She is currently in surveillance. She is also to have known brain metastases which have been treated with gamma knife radiosurgery, she would accept this in the future. She is doing fairly well other than some mild symptom issues regarding anxiety, nausea, and most significantly fatigued. Palliative care to continue to provide support regarding patient's goals of care and transition to hospice when appropriate Recommendations/Counseling Done: 1. Pleurisy right chest. This is currently resolved she did tolerate her taper without any further problems. 2. Anxiety. Patient is continue with her acupuncture, working with meditation , and I am receiving counseling. Counseling done today to explore further etiology and concerns contributing to her anxiety, as well as to strengthen her current coping mechanisms. Using CBD at bedtime with good effect, will continue 1/4 tab of clonazepam BID as she feels this is as far as she wants to taper. 3. Fatigue. This is multifactorial in origin. She would like to have a progressive activity program, provided counseling regarding this as well as a walking program prescription. Reviewed this with patient in balancing energy conservation and building endurance. 4. CKD. Patient is doing better with fluids, her labs have improved slightly, patient is feeling encouraged with her current program. She is due to have monthly labs to monitor. 5. Nausea. Patient has low grade nausea, known intermittent GERD. Requested she try doubling her omeprazole for a week and see if it improves. Discussed minimizing use of compazine if able, adding to fatigue. 5. Advanced care planning. POLST is in place, discussed support available, encouraged further conversation with s/o about planning time/priorities for relationship time. Time Spent: 60 minutes with greater than 50% of this done in counseling regarding anxiety, nausea, and anticipatory guidance.
== END 2017-11-04 15:24 | disposition home or self-care (01) ==
LOC: PC 15:23
PROVIDERS: ATTEND Nurse Practitioner Adult Health
DX: Z51.5 Encounter for palliative care (principal); F41.9 Anxiety disorder, unspecified; R53.83 Other fatigue; N18.9 Chronic kidney disease, unspecified; R11.0 Nausea; C34.90 Malignant neoplasm of unspecified part of unspecified bronchus or lung; C79.31 Secondary malignant neoplasm of brain; R06.09 Other forms of dyspnea; M62.81 Muscle weakness (generalized); Z66 Do not resuscitate
CPT/HCPCS: 99215

== ENCOUNTER 2017-11-18 21:21 | Outpatient (CLI) | payer MEDICARE, OTHER | END 2017-11-18 21:22 | disposition home or self-care (01) | LOC: LAB.R 21:21 | PROVIDERS: ATTEND Physician Assistant Medical | DX: R19.7 Diarrhea, unspecified (principal); R10.12 Left upper quadrant pain | CPT/HCPCS: 87045; 87046 ==

== ENCOUNTER → 2017-11-18 | Outpatient (CLI) | payer MEDICARE, OTHER ==
[2017-11-18 09:46] LABS: BASOPHILS # (AUTO) 0.1 10^3/uL (0.0-0.1); BASOPHILS % (AUTO) 1.4 %; EOSINOPHILS # (AUTO) 0.8 10^3/uL (0.0-0.7); EOSINOPHILS % (AUTO) 9.6 %; HGB - HEMOGLOBIN 13.3 g/dL (12.0-16.0); LYMPHOCYTES # (AUTO) 0.9 10^3/uL (1.5-3.5); LYMPHOCYTES % (AUTO) 11.2 %; MEAN CORPUSCULAR HEMOGLOBIN 32.6 pg (27.0-31.0); MEAN CORPUSCULAR HGB CONC 34.6 g/dL (32.0-36.0); MEAN CORPUSCULAR VOLUME 94.2 fL (81.0-99.0); MONOCYTES # (AUTO) 0.8 10^3/uL (0.0-1.0); MONOCYTES % (AUTO) 8.9 %; NEUTROPHILS # (AUTO) 5.8 10^3/uL (1.5-6.6); NEUTROPHILS % (AUTO) 68.9 %; PLT - PLATELET COUNT 205 10^3/uL (130-450); RED BLOOD COUNT 4.09 10^6/uL (4.20-5.40); RED CELL DISTRIBUTION WIDTH 13.2 % (12.0-15.0); WHITE BLOOD COUNT 8.4 x10^3/uL (4.8-10.8)
[2017-11-18 10:04] LABS: ALBUMIN/GLOBULIN RATIO 1.5 (1.0-2.2); ALKALINE PHOSPHATASE 43 IU/L (42-121); ALT ALANINE AMINOTRANSFERASE 13 IU/L (10-60); AST ASPARTATE AMINOTRANSFERASE 17 IU/L (10-42); BILIRUBIN,TOTAL 0.8 mg/dL (0.2-1.0); BUN - BLOOD UREA NITROGEN 22 mg/dL (6-20); CALCIUM 9.5 mg/dL (8.5-10.3); CARBON DIOXIDE - CO2 25 mmol/L (21-32); CHLORIDE 104 mmol/L (101-111); CREATININE 1.6 mg/dL (0.4-1.0); CRP - C-REACTIVE PROTEIN < 1.0 mg/dL (0-1.0); GFR - MDRD 31 (>89); GLUCOSE 122 mg/dL (70-100); LIPASE 44 U/L (22-51); SODIUM 138 mmol/L (135-145); TOTAL PROTEIN 6.6 g/dL (6.7-8.2)
== END ==
LOC: LAB.R 08:00
PROVIDERS: ATTEND Physician Assistant Medical
DX: R19.7 Diarrhea, unspecified (principal); R10.12 Left upper quadrant pain
CPT/HCPCS: 80053; 83690; 85025; 85651; 86140

== ENCOUNTER 2017-11-19 08:00 | Outpatient (CLI) | payer MEDICARE, OTHER | END 2017-11-19 23:59 | LOC: LAB.R 08:00 | PROVIDERS: ATTEND Physician Assistant Medical | DX: R19.7 Diarrhea, unspecified (principal); R10.12 Left upper quadrant pain | CPT/HCPCS: 81599; 82705; 83630; 87177; 87209; 87329; 87493 ==

== ENCOUNTER 2017-11-29 09:20 | Outpatient (CLI) | payer MEDICARE, OTHER ==
[2017-11-29 12:47] LABS: ALBUMIN/GLOBULIN RATIO 1.6 (1.0-2.2); BILIRUBIN,TOTAL 0.7 mg/dL (0.2-1.0); CALCIUM 9.5 mg/dL (8.5-10.3); CREATININE 1.6 mg/dL (0.4-1.0); TOTAL PROTEIN 6.5 g/dL (6.7-8.2)
== END 2017-11-29 09:21 | disposition home or self-care (01) ==
LOC: LAB.R 09:20
PROVIDERS: ATTEND Physician Assistant Medical
DX: R19.7 Diarrhea, unspecified (principal)
CPT/HCPCS: 80053

== ENCOUNTER 2017-12-13 10:22 | Outpatient (CLI) | payer MEDICARE, OTHER ==
--- NOTE | 2017-12-15 09:26 | CONSULTATION NOTE ---
Palliative Care Follow Up - Referral Referring Provider: Tona Flood PA-C Time of Visit: Saturday12/13/2017 10-11 Referral setting: [facility] Referral Reason: Lung Cancer with Brain Mets/HRIA - Information Sources Records reviewed: Previous records reviewed History/Review of Systems obtained from: Patient Exam limitations: No limitations Social History - Living Situation Living arrangement: At home Living Situation: With spouse/s.o. Support System: She lives with her partner Ashley, she is also caring for her 98-year-old woman has many stressors. She is going to be gone for short period of time on a vacation, but patient has a good friend coming to stay with her Medications/Allergies - Medications Home Medications: Ambulatory Orders Medication Instructions Recorded Confirmed Albuterol Sulfate [Proair Hfa 1 - 2 puffs INH Q4H PRN 09/27/13 12/15/17 Inhaler] Latanoprost 1 drop EACHEYE QPM 09/27/13 12/15/17 Levothyroxine [Synthroid] 25 mcg PO DAILY 09/27/13 12/15/17 Timolol 0.5% Ophth Drops [Timoptic 1 drop EACHEYE BID 09/27/13 12/15/17 0.5% Ophth Drops] Brimonidine 0.1% Ophth Drops 1 drop RIGHTEYE BID 03/15/16 12/15/17 [Alphagan P 0.1% Ophth Drops] Escitalopram [Lexapro] 10 mg PO DAILY PM 03/16/16 12/15/17 Prochlorperazine [Compazine] 5 mg PO Q6HR PRN #0 tablet 03/19/16 12/15/17 Omeprazole [PriLOSEC] 10 mg PO QDAC 01/01/17 12/15/17 clonazePAM [KlonoPIN] 0.25 mg PO BID 01/01/17 12/15/17 Budesonide/Formoterol Fumarate 2 puffs INH BID 08/02/17 12/15/17 [Symbicort 160-4.5 Mcg Inhaler] Folic Acid 400 mcg PO DAILY 08/02/17 12/15/17 Ipratropium/Albuterol [Duoneb] 3 ml INH PRN PRN 08/02/17 12/15/17 oxyCODONE [Roxicodone] 2.5 mg PO DAILY PRN 12/15/17 12/15/17 - Allergies Allergies/Adverse Reactions: Allergies Allergy/AdvReac Type Severity Reaction Status Date / Time hydromorphone HCl * AdvReac Unknown Verified 05/31/17 00:25 [From Dilaudid] prednisone AdvReac Hallucinati Verified 05/31/17 00:25 ons fragrances AdvReac Respiratory Uncoded 08/02/17 15:28 Review of Systems - Constitutional Constitutional: reports: Fatigue, Weight loss (140.8). denies: Fever, Chills - Eyes Eyes: reports: Other (vision correct with eye surgery) - Cardiovascular Cardiovascular: reports: Decr. exercise tolerance - Respiratory Respiratory: reports: SOB with exertion. denies: Cough, SOB at rest - Gastrointestinal Gastrointestinal: reports: Reflux/heartburn (had trialed off omeprazone related to diarrhea; GERD had reoccureed), Early satiety. denies: Diarrhea (was having "horrible diarrhea"; since resolved used oxycodone with good results; inst. to use again; patient's current theory is stress induced) - Genitourinary Genitourinary: denies: Incontinence - Musculoskeletal Musculoskeletal: reports: Stiffness, Muscle weakness - Integumentary Integumentary: reports: Dryness - Neurological Neurological: reports: General weakness - Psychiatric Psychiatric: reports: Anxiety - Endocrine Endocrine: reports: Hypothyroidism - All Other Systems All Other Systems: reports: Reviewed and negative Physical Exam - Vital Signs Temperature: 98.8 C Pulse Rate: 86 Respiratory Rate: 18 Blood Pressure: 134/70 - Physical Exam General Appearance: positive: Mild distress, Anxious Eyes Bilateral: positive: Other (conjuctivae reddened) ENT: positive: No signs of dehydration Neck: positive: No JVD, Trachea midline Respiratory: positive: Diminished in bases Abdomen: positive: Soft Skin: positive: Dryness Extremities: positive: No pedal edema Neurologic/Psychiatric: positive: Oriented x3, Mood/affect nml Palliative Care - POLST Patient has POLST: Yes POLST Status: DNR, Selective Treatment Pain: No pain Tiredness/Fatigue: Moderate (4-6) Drowsiness/Sedation: Moderate (4-6) Nausea: Mild (1-3) Depression: Mild (1-3) Anxiety: Severe (7-10) Dyspnea: Moderate (4-6) Anorexia: Mild (1-3), Weight loss Sleep: Variable sleep pattern Constipation: No Feelings of wellbeing/Perceived Quality of Life: Fair, Acceptable Performance Status: Patient is independent in her ADLs, she does have some activity intolerance, she does stay mostly homebound, but is looking at the engaging in some activities that bring her brendan - Palliative Care Discussion: Patient shared some increased stressors related to her partner Ashley and her mother. She is trying to just walk away and not engage in this, she has found this a helpful strategy. She does acknowledge that her anxiety definitely impacts her quality of life, and is wondering if this actually was the source of her diarrhea. She feels well supported by her medical team, she did have to cancel her oncology appointment but it has been rescheduled for 12/30. Continues to have her kidney function monitored regularly, without any worsening at this point in time. She finds it helpful to talk through some of these worries, and is able and willing to share concerns Results - Lab Results Lab results reviewed: Yes Impression and Recommendations - Palliative Care Impression: This is a clovis 77-year-old woman with a history of indolent lung adenocarcinoma history of multiple prior systemic therapies and immunotherapy. She is currently on surveillance, and finds this difficult as she is "not doing anything". She also is known to have brain metastases treated with gamma knife radiosurgery, she reports she would accept this in the future. She continues to struggle significantly with anxiety, and activity intolerance. Palliative care to continue to provide support regarding patient's goals of care and transition to hospice when appropriate Recommendations/Counseling Done: 1. Anxiety. Patient encouraged to continue with her acupuncture, meditation, and low-dose clonazepam. Counseling provided for patient for other self-care strategies, education regarding managing generalized anxiety disorder, and setting goals as far as decreasing her isolation. 2. Weight loss. Counseling regarding ways to increase calories and protein, provided to patient. Patient has recently had episode of prolonged diarrhea, this is since resolved. Unclear if this is the etiology of her recent weight loss of about 5-6 pounds. 3. Fatigue. This is multifactorial in origin. She was unable to initiate her progressive activity program secondary to the smoke outside, no history of asthma. She still wants to do this and her goal is to initiate this in the next week. 4. Diarrhea. This is currently controlled, she does have a plan for use of the oxycodone if starts again. She did tolerate this well and was effective. 5. Advanced care planning. NELLIE [address] is in place, patient's goals continue to focus on quality of life issues, address questions and concerns. Time Spent: 60 minutes with greater than 50% of this done in counseling particularly around managing anxiety, setting goals for QOL, and anticipatory guidance
== END 2017-12-13 10:23 | disposition home or self-care (01) ==
LOC: PC 10:22
PROVIDERS: ATTEND Nurse Practitioner Adult Health
DX: Z51.5 Encounter for palliative care (principal); F41.9 Anxiety disorder, unspecified; R63.4 Abnormal weight loss; Z85.110 Personal history of malignant carcinoid tumor of bronchus and lung; C79.31 Secondary malignant neoplasm of brain; R53.83 Other fatigue; M62.81 Muscle weakness (generalized); Z66 Do not resuscitate
CPT/HCPCS: 99215

== ENCOUNTER 2017-12-19 08:26 | Outpatient (CLI) | payer MEDICARE, OTHER ==
[2017-12-19 09:06] LABS: ALBUMIN 3.9 g/dL (3.2-5.5); ALBUMIN/GLOBULIN RATIO 1.7 (1.0-2.2); BILIRUBIN,TOTAL 0.6 mg/dL (0.2-1.0); CALCIUM 9.4 mg/dL (8.5-10.3); CREATININE 1.6 mg/dL (0.4-1.0); TOTAL PROTEIN 6.2 g/dL (6.7-8.2)
== END 2017-12-19 08:27 | disposition home or self-care (01) ==
LOC: LAB 08:26
PROVIDERS: ATTEND Physician Assistant Medical
DX: R19.7 Diarrhea, unspecified (principal); N17.9 Acute kidney failure, unspecified
CPT/HCPCS: 36415; 80053; 82533

== ENCOUNTER 2018-01-16 08:00 | Outpatient (CLI) | payer MEDICARE, OTHER ==
[2018-01-16 13:16] LABS: ALBUMIN 4.2 g/dL (3.2-5.5); ALBUMIN/GLOBULIN RATIO 1.6 (1.0-2.2); BILIRUBIN,TOTAL 0.9 mg/dL (0.2-1.0); CALCIUM 9.8 mg/dL (8.5-10.3); CREATININE 1.4 mg/dL (0.4-1.0); TOTAL PROTEIN 6.9 g/dL (6.7-8.2)
== END 2018-01-16 08:01 ==
LOC: LAB.R 08:00
PROVIDERS: ATTEND Physician Assistant Medical
DX: N18.3 Chronic kidney disease, stage 3 (moderate) (principal)
CPT/HCPCS: 80053

== ENCOUNTER 2018-01-21 10:45 | Outpatient (CLI) | payer MEDICARE, OTHER ==
--- NOTE | 2018-01-21 19:09 | CONSULTATION NOTE ---
Palliative Care Follow Up - Referral Referring Provider: Tona Flood PA-C Time of Visit: 0016-1226 Referral setting: Home (Is a taxing considerable effort for the patient leave the home secondary to weakness, and left leg pain. As well as to facilitate family conference) Referral Reason: Lung Cancer with brain mets/acute left leg pain/N/V - Information Sources Records reviewed: Previous records reviewed History/Review of Systems obtained from: Patient, Family (partner Ashley present for visit) Exam limitations: Clinical condition (patient with high anxiety and STM issues) - History of Present Illness Update Brief HPI Update: This is an anxious 69-year-old woman with a history of indolent lung adenocarcinoma, who has received multiple systemic and immunotherapy. She has known brain metastases which have been successfully treated with gamma knife radiosurgery over several years. She recently presented with worsening renal function, so was unable to have contrast for her MRI. She has had a constellation of ongoing symptoms, starting with GI initially with diarrhea, now presenting with constipation. She has had low-grade nausea, presenting most recently with vomiting, now fairly controlled on Haldol 0.5 mg 3-4 times a day, with Compazine for breakthrough. In this last couple weeks she pulled muscle, with increasing pain radiating through her hip and thigh, impacting her functional status. She has had weight loss, her baseline weight is usually being around 145, most recently was 130, and has presented with escalating anxiety as well. She had discontinued on her own her Lexapro, clonazepam, as is worried about side effects and interactions with her Haldol. She has had poor sleep, and is feeling overwhelmed by her high symptom burden. Social History - Living Situation Living arrangement: At home Living Situation: With spouse/s.o. Support System: Patient lives with her partner Ashley, unfortunately related to her high anxiety it does make it difficult as far as negotiating patient's care needs. Ashley's mother who is in her late 90s, has taken up most of Ashley's time and energy, she just dropped off for 3-week hiatus to be be care for by Iva siblings, and feels like she can concentrate now on Dorothy. There is some tension regarding Dorothy's ongoing anxiety and increasing care needs. Medications/Allergies - Medications Home Medications: Ambulatory Orders Medication Instructions Recorded Confirmed Albuterol Sulfate [Proair Hfa 1 - 2 puffs INH Q4H PRN 09/27/13 01/21/18 Inhaler] Latanoprost 1 drop EACHEYE QPM 09/27/13 01/21/18 Levothyroxine [Synthroid] 25 mcg PO DAILY 09/27/13 01/21/18 Timolol 0.5% Ophth Drops [Timoptic 1 drop EACHEYE BID 09/27/13 01/21/18 0.5% Ophth Drops] Brimonidine 0.1% Ophth Drops 1 drop RIGHTEYE BID 03/15/16 01/21/18 [Alphagan P 0.1% Ophth Drops] Escitalopram [Lexapro] 10 mg PO DAILY PM 03/16/16 01/21/18 Prochlorperazine [Compazine] 5 mg PO Q6HR PRN #0 tablet 03/19/16 01/21/18 Omeprazole [PriLOSEC] 10 mg PO QDAC 01/01/17 01/21/18 clonazePAM [KlonoPIN] 0.25 mg PO BID PRN 01/01/17 01/21/18 Budesonide/Formoterol Fumarate 2 puffs INH BID 08/02/17 01/21/18 [Symbicort 160-4.5 Mcg Inhaler] Folic Acid 400 mcg PO DAILY 08/02/17 01/21/18 Ipratropium/Albuterol [Duoneb] 3 ml INH PRN PRN 08/02/17 01/21/18 Dexamethasone [Decadron] 4 mg PO DAILY MDD 1 week, then 2 mg 01/21/18 01/21/18 HYDROcod/ACETAM 5/325 [[place] 5/325] 0.5 - 1 tab PO Q4HR PRN 01/21/18 01/21/18 Haloperidol Oral Soln [Haldol Oral 0.25 ml PO Q6HR PRN 01/21/18 01/21/18 Soln] Senna [Senokot] 1 tab PO BID MDD 8 tabs 01/21/18 01/21/18 Zolpidem Tartrate [Ambien] 5 mg PO DAILY PRN MDD 10 mg 01/21/18 01/21/18 - Allergies Allergies/Adverse Reactions: Allergies Allergy/AdvReac Type Severity Reaction Status Date / Time hydromorphone HCl * AdvReac Unknown Verified 05/31/17 00:25 [From Dilaudid] prednisone AdvReac Hallucinati Verified 05/31/17 00:25 ons fragrances AdvReac Respiratory Uncoded 08/02/17 15:28 Review of Systems - Constitutional Constitutional: reports: Fatigue, Weakness, Poor appetite, Weight loss (130 from baseline 150). denies: Fever, Chills - Eyes Eyes: reports: Vision loss, Other (multiple drops) - Ears, Nose & Throat Ears, Nose & Throat: reports: Hearing loss (mild) - Cardiovascular Cardiovascular: reports: Decr. exercise tolerance - Respiratory Respiratory: reports: SOB with exertion. denies: SOB at rest - Gastrointestinal Gastrointestinal: reports: Constipation (no bm x 3 days; had previously had diarrhea), Nausea (better controlled with haldol; no vomiting for a couple of days; using compazine 1-2 x day), Vomiting (improved), Poor appetite, Early satiety - Musculoskeletal Musculoskeletal: reports: Muscle pain (left leg pain), Stiffness, Muscle weakness, Assistive devices (uses cane/walking stick for balance) - Integumentary Integumentary: reports: Dryness - Neurological Neurological: reports: General weakness, Memory problems (stm issues noted in conversation), Abnormal gait (shuffled). denies: Slurred speech - Psychiatric Psychiatric: reports: Anxiety - All Other Systems All Other Systems: reports: Reviewed and negative Physical Exam - Vital Signs Temperature: 97.3 C Pulse Rate: 74 Respiratory Rate: 18 O2 Saturation: 93 (ra @ rest) Blood Pressure: 132/74 (sitting and 118/72 standing) - Physical Exam General Appearance: positive: Mild distress, Anxious Eyes Bilateral: positive: Other (conjunctivae red and eyes watery) ENT: negative: Pharyngeal erythema Neck: positive: Trachea midline Cardiovascular: positive: Regular rate & rhythm Respiratory: positive: Diminished throughout. negative: Wheezes, Rales, Rhonchi Abdomen: positive: Non-tender, Soft, Nml bowel sounds Skin: positive: Pallor, Dryness Extremities: positive: No pedal edema Neurologic/Psychiatric: positive: Oriented x3, Weakness, Depressed mood/affect, Flat affect Palliative Care - POLST Patient has POLST: Yes POLST Status: DNR, Selective Treatment Pain: Pain worsening, Location (left hip and leg; Does wake patient up at night; Fluctuating in intensity. Have tried cannabis topical, acetaminophen 1000 mg 3 times daily, heating pad, has impacted her ambulation. Denies it is sharp shooting or sciatic in nature. Intensity is though as 6 out of 10.) Tiredness/Fatigue: Moderate (4-6) Drowsiness/Sedation: Mild (1-3) Nausea: Mild (1-3) (no vomiting for two days; feels like improving) Depression: Mild (1-3) Anxiety: Severe (7-10) (had panic attack two nights ago when Ashley had left; had neighbor come stay with her) Dyspnea: None Anorexia: Severe (7-10), Weight loss Sleep: Variable sleep pattern (using 1/3 of zolpidem every time wakes up; last dose 0400 am with resulting drowsiness in AM) Constipation: Yes (no BM for 3 days; "sipping" on mag citrate) Feelings of wellbeing/Perceived Quality of Life: Poor, Worsening Performance Status: Patient requested home visit secondary to severe symptom burden. Patient has mostly been spending time on the couch, or in bed. She is ambulating throughout the house with a cane, but gait is shuffled. Is able to shower independently, Ashley providing meal prep currently - Palliative Care Discussion: Patient does not perceive herself as deteriorating, just perceives this as a temporary situation though presents as a failure to thrive today. Ashley appears somewhat frustrated with patient, symptoms, and her anxiety. Admits has been unable to participate in patient's recent symptoms and care as she has been distracted and involved in caring for her mother. Reports she is trying to "catch up".and wants to be supportive and helpful. Both are concerned about her ongoing weight loss, lack of appetite, and fairly focused on her "kidney function". Patient does have high anxiety, and admits to perseveration to her detriment. Impression and Recommendations - Palliative Care Impression: This is a 77-year-old woman with a history of indolent lung adenocarcinoma, metastatic brain disease status post gamma knife radiosurgery, and on CKD stage III. Patient presents with high symptom burden, acute left leg pain, weight loss, and functional decline. Palliative care to provide support for pain and symptom management. Recommendations/Counseling Done: 1. Left leg pain, uncertain etiology. Patient wanting to try fentanyl patch, counseled against this given her opioid naitivity. Instructed to start with hydrocodone 5 mg / 325 mg 1/2-1 tab every 4 hours with 500 mg of acetaminophen. Reviewed if strain, will continue to improve. Instructed to take with food. Counseled to continue massage, topical cannabis, heating pad and progressive ambulation through house. 2. Nausea and vomiting. Patient currently responding well to the Haldol 0.5 mg 3-4 times a day, using Compazine for rescue. No vomiting times 2 days, will add dexamethasone 4 mg for appetite, pain, and fatigue. This should help with nausea as well. 3. Constipation. Patient instructed to stop mag citrate, and to initiate senna. Instructed to take 2 tabs today, if no BM 2 tabs in the a.m., and to initiate 1 tab twice daily on a regular basis and hold only for loose stools. 4. Anorexia. Patient has been on dexamethasone in the past, with increased appetite and feeling of wellness. Will initiate at 4 mg x 1 week, and decreased to 2 mg. Plan to follow-up with patient next week regarding high symptom burden. 5. Insomnia. Patient instructed to not repeat zolpidem and any later than 2 AM, encouraged to use hydrocodone at bedtime, as pain is awakening her. 6. Anxiety. Patient was instructed to restart her Lexapro, I suspect some of her symptoms of "panic attack" given the timing may have also been withdrawal of she stopped cold turkey. Reviewed clonazepam 0.25 mg can be used as as needed, to reassure her she had a "tool" in her toolbox if she needed it. Instructed not to take on a regular basis, as Haldol should be of assistance as well. 7.Advanced care planning. Patient continues with slow functional decline, presents today with high symptom burden and weight loss. Partner Ashley, available to participate in care planning and discussion today. Patient is found this very reassuring, but noted tension with patient's increasing dependence. Patient does have a counselor, partner is encouraging her to continue this relationship. Will offer palliative care nephrology social worker for long- term planning if patient continues to decline. I suspect would be helpful to put some of this in place rather than in crisis. Time Spent: 60 minutes with getting 50% of this done in counseling regarding symptom management, medication review, anticipatory guidance. Coordination of care with PCP Tona Flood PA-C.
== END 2018-01-21 10:46 | disposition home or self-care (01) ==
LOC: PC 10:45
PROVIDERS: ATTEND Nurse Practitioner Adult Health
DX: Z51.5 Encounter for palliative care (principal); M79.605 Pain in left leg; R11.2 Nausea with vomiting, unspecified; K59.00 Constipation, unspecified; R63.0 Anorexia; G47.00 Insomnia, unspecified; R63.4 Abnormal weight loss; C34.90 Malignant neoplasm of unspecified part of unspecified bronchus or lung; C79.31 Secondary malignant neoplasm of brain; F41.0 Panic disorder [episodic paroxysmal anxiety]; N18.3 Chronic kidney disease, stage 3 (moderate); Z66 Do not resuscitate; Z79.899 Other long term (current) drug therapy
CPT/HCPCS: 99350

== ENCOUNTER 2018-01-28 16:49 | Outpatient (CLI) | payer MEDICARE, OTHER ==
--- NOTE | 2018-01-28 17:57 | CONSULTATION NOTE ---
Palliative Care Follow Up - Referral Referring Provider: Tona Flood PA-C Time of Visit: 9549-3181 Referral setting: Home Referral Reason: Lung Cancer with brain mets/LLE pain - Information Sources Records reviewed: Previous records reviewed History/Review of Systems obtained from: Patient, Family (s/o present Ashley) Exam limitations: Clinical condition (patient with short term memory issues; high anxiety) - History of Present Illness Update Brief HPI Update: This is a 77-year-old woman who has significant anxiety disorder, with a history of indolent lung adenocarcinoma, who has received multiple systemic and immunotherapy is currently on surveillance only. She has known brain metastases which have been successfully treated with gamma knife radiosurgery for small lesions over several years. She does now present with worsening renal function has not been able to have contrast for her brain MRIs. This is caused her a great deal of distress. She has had ongoing slew of symptoms including GI, presenting with diarrhea, alternating now presenting with constipation. She has developed over the last month some increased pain radiating through her left hip and thigh, has had weight loss with her usual baseline weight around 145, currently 129. Her pain is better controlled with regular scheduled hydrocodone 5/325 acetaminophen with 500 mg of acetaminophen 3-4 times a day, but has added to her constipation, and her pain is not really resolved. I am doing home visits secondary is considerable and taxing effort for her to leave the home, her ambulation is improved, she describes her pain is a deep ache, does wake her up at night. The hydrocodone does relieve the pain, denies any back pain or discomfort, no sharp shooting pains, sitting makes it worse, walking improves her pain as well as massage though temporary and intermittent heat. Her nausea is continued to improve, her appetite is improved with the Decadron 4 mg daily, and her anxiety seems less. Social History - Living Situation Living arrangement: At home Living Situation: With spouse/s.o. (Patient lives with her SO Ashley, who currently also takes care of her 98-year-old mother who is on vacation for a few weeks. Ashley does feel somewhat overwhelmed at times as patient's high anxiety makes it difficult for her to leave or travel. They do have some community support but no family nearby.) Medications/Allergies - Medications Home Medications: Ambulatory Orders Medication Instructions Recorded Confirmed Albuterol Sulfate [Proair Hfa 1 - 2 puffs INH Q4H PRN 09/27/13 01/28/18 Inhaler] Latanoprost 1 drop EACHEYE QPM 09/27/13 01/28/18 Levothyroxine [Synthroid] 25 mcg PO DAILY 09/27/13 01/28/18 Timolol 0.5% Ophth Drops [Timoptic 1 drop EACHEYE BID 09/27/13 01/28/18 0.5% Ophth Drops] Brimonidine 0.1% Ophth Drops 1 drop RIGHTEYE BID 03/15/16 01/28/18 [Alphagan P 0.1% Ophth Drops] Escitalopram [Lexapro] 10 mg PO DAILY PM 03/16/16 01/28/18 Prochlorperazine [Compazine] 5 mg PO Q6HR PRN #0 tablet 03/19/16 01/28/18 Omeprazole [PriLOSEC] 10 mg PO QDAC 01/01/17 01/28/18 clonazePAM [KlonoPIN] 0.25 mg PO BID PRN 01/01/17 01/28/18 Budesonide/Formoterol Fumarate 2 puffs INH BID 08/02/17 01/28/18 [Symbicort 160-4.5 Mcg Inhaler] Folic Acid 400 mcg PO DAILY 08/02/17 01/28/18 Ipratropium/Albuterol [Duoneb] 3 ml INH PRN PRN 08/02/17 01/28/18 Dexamethasone [Decadron] 4 mg PO DAILY MDD 1 week, then 2 mg 01/21/18 01/28/18 HYDROcod/ACETAM 5/325 [[place] 5/325] 1 tab PO Q4HR PRN 01/21/18 01/28/18 Haloperidol Oral Soln [Haldol Oral 0.25 ml PO Q6HR PRN 01/21/18 01/28/18 Soln] Senna [Senokot] 2 tab PO TID MDD 8 tabs 01/21/18 01/28/18 Zolpidem Tartrate [Ambien] 5 mg PO DAILY PRN MDD 10 mg 01/21/18 01/28/18 Acetaminophen 500 mg PO Q4HR PRN MDD 3000 mg 01/28/18 01/28/18 - Allergies Allergies/Adverse Reactions: Allergies Allergy/AdvReac Type Severity Reaction Status Date / Time hydromorphone HCl * AdvReac Unknown Verified 05/31/17 00:25 [From Dilaudid] prednisone AdvReac Hallucinati Verified 05/31/17 00:25 ons fragrances AdvReac Respiratory Uncoded 08/02/17 15:28 Review of Systems - Constitutional Constitutional: reports: Fatigue, Weight loss (129/1 pound this week; after initial weight loss feels doing better). denies: Fever - Eyes Eyes: reports: Vision loss - Ears, Nose & Throat Ears, Nose & Throat: reports: Other (taste changes) - Cardiovascular Cardiovascular: reports: Decr. exercise tolerance. denies: Chest pain, Exertional dyspnea - Respiratory Respiratory: reports: Snoring (reports loose stool 01/22; stopped bowel meds 1-2 days; resumed at 2 tabs Senna TID without results), SOB with exertion. denies: Cough, Orthopnea, SOB at rest - Gastrointestinal Gastrointestinal: reports: Constipation (r), Early satiety, Other (poor fluid intake). denies: Nausea (improved; no further vomiting; haldol down to BID; denies nausea at time of visit) - Musculoskeletal Musculoskeletal: reports: Muscle pain (Left leg), Stiffness, Limited range of motion, Muscle weakness, Other (ambulating better) - Integumentary Integumentary: reports: Dryness - Neurological Neurological: reports: General weakness, Memory problems. denies: Headache, Dizziness - Psychiatric Psychiatric: reports: Depression, Anxiety - Hematologic/Lymphatic Hematologic/Lymphatic: denies: Recurrent infections - All Other Systems All Other Systems: reports: Reviewed and negative Physical Exam - Vital Signs Temperature: 97.1 C Pulse Rate: 74 Respiratory Rate: 18 O2 Saturation: 95 (ra @ rest) Blood Pressure: 138/76 - Physical Exam General Appearance: positive: Mild distress (improved from last visit), Anxious Eyes Bilateral: positive: Other (conjunctivae reddened/patient's norm) Neck: positive: Trachea midline Cardiovascular: positive: Regular rate & rhythm Respiratory: positive: Diminished throughout. negative: Wheezes, Rales, Rhonchi Abdomen: positive: Non-tender, Soft, Nml bowel sounds Skin: positive: Pallor, Dryness Extremities: positive: Pedal edema (trace pedal edema up to midcalf) Neurologic/Psychiatric: positive: Oriented x3, Other (very anxious; demonstrates STM issues; no increase in confusion) Palliative Care - POLST Patient has POLST: Yes POLST Status: DNR, Selective Treatment Pain: Pain unchanged Tiredness/Fatigue: Moderate (4-6) Drowsiness/Sedation: Moderate (4-6) Nausea: Mild (1-3) Depression: Mild (1-3) Anxiety: Severe (7-10) Dyspnea: Mild (1-3) Anorexia: Moderate (4-6) Sleep: Variable sleep pattern Constipation: Yes, Opoid induced, Unmanaged Feelings of wellbeing/Perceived Quality of Life: Fair, Improved Performance Status: Patient is able to independently shower, she is ambulatory has not needed a cane as much. Her gait has improved, though her balance remains problematic. Her partner is providing most of support as far as meal prep, and transportation. - Palliative Care Discussion: Patient remains quite anxious, has difficulty with her symptom burden. She is encouraged though that she is eating better, though I suspect she is still mildly dehydrated. Her goal is to return back to her previous level of functioning, though she does remain quite frail, with her weight loss, and concerned regarding possibility this is more related to recurrent disease. Impression and Recommendations - Palliative Care Impression: This is a 77-year-old woman with a history of indolent lung adenocarcinoma, metastatic brain disease status post gamma knife radiosurgery, and CKD stage III. Patient presents with persistent left hip and leg pain, without improvement, anorexia and weight loss, and mild functional decline. In the setting of her diagnosis of metastatic lung cancer, concern regarding persistent pain. Palliative care to provide support for pain and symptom management Recommendations/Counseling Done: 1.Left leg pain, uncertain etiology. Patient without any improvement in leg pain, does report better control with hydrocodone 5 mg / 325 mg is taking 1 tab every 4 hours with acetaminophen 500 mg, about 3-4 times a day. Patient is using massage, heating pad, has had some improvement in ambulation and pain control but no improvement in underlying persistent severity of pain. Follow-up with [facility], regarding recommended workup and imaging. Recommended start with plain films including 2 views of lumbar spine, and AP a pelvic with bilateral hips. Follow-up with PCP Tona flood, she will order scans including the femur as well, in agreement appropriate next step. I will contact patient with request for imaging. 2. Nausea and vomiting. Patient has had much improvement with the Decadron 4 mg, has been able to decrease the Haldol to 2 times a day, denies any nausea at time of visit. Encouraged to continue to titrate down, and use as needed only. Suspect the dexamethasone 4 mg has been of assistance. 3. Anorexia. Patient quite pleased with her increase in appetite, has had increased intake, though fluid status remains compromised. Counseling regarding strategies to increase fluid intake and continue increased caloric intake. Patient will continue 4 mg 1 more week, then will decrease to 2 mg. 4. Constipation. Patient did have a loose bowel movement after initiation of the senna, then stopped for couple days and has had no further. Patient's abdomen is soft, will go ahead and have her add MiraLAX 17 g daily, as well as increase senna for today until bowel movement, then continue it to senna 3 times daily given her opioid load. 5. Anxiety. Patient has restarted her Lexapro as instructed, does seem less anxious, she has not needed to use her clonazepam for breakthrough. Counseling provided to normalize current feelings of distress. 6. Advanced care planning. Patient does appear somewhat frail, with slow functional decline and increased short-term memory issues with increased symptom burden and weight loss. Patient at high risk for recurrent disease, partner Ashley has been a supportive though gets overwhelmed with patient's and anxiety as well. Will continue with follow-up appointment next week, this does appear reassuring to patient given her generalized anxiety disorder. Time Spent: 60 minutes with greater than 50% of this done in counseling regarding pain and symptom management as well as coordination of care with PCP.
== END 2018-01-28 16:50 | disposition home or self-care (01) ==
LOC: PC 16:49
PROVIDERS: ATTEND Nurse Practitioner Adult Health
DX: Z51.5 Encounter for palliative care (principal); M25.552 Pain in left hip; M79.605 Pain in left leg; R63.0 Anorexia; R63.4 Abnormal weight loss; G89.3 Neoplasm related pain (acute) (chronic); R11.2 Nausea with vomiting, unspecified; K59.03 Drug induced constipation; T40.2X5A Adverse effect of other opioids, initial encounter; C34.90 Malignant neoplasm of unspecified part of unspecified bronchus or lung; C79.31 Secondary malignant neoplasm of brain; N18.3 Chronic kidney disease, stage 3 (moderate); F41.1 Generalized anxiety disorder; R41.3 Other amnesia; Z79.891 Long term (current) use of opiate analgesic; Z79.899 Other long term (current) drug therapy; Z66 Do not resuscitate; Z79.52 Long term (current) use of systemic steroids
CPT/HCPCS: 99350

== ENCOUNTER 2018-02-06 11:00 | Outpatient (CLI) | payer MEDICARE, OTHER ==
--- NOTE | 2018-02-06 12:03 | CONSULTATION NOTE ---
Palliative Care Follow Up - Referral Referring Provider: Tona Flood PA-C Time of Visit: 1111:45 Referral setting: Home Referral Reason: Lung Cancer with Brain Mets/Left Leg Pain - Information Sources Records reviewed: Previous records reviewed History/Review of Systems obtained from: Patient, Family (Ashley present for visit) Exam limitations: Clinical condition (patient with high anxiety) - History of Present Illness Update Brief HPI Update: This is a 77-year-old woman who has a significant underlying general anxiety disorder, with history of indolent lung adenocarcinoma, has received multiple systemic and immunotherapy, is currently on surveillance. She does have known brain metastases which have been successfully treated with gamma knife radiosurgery for several lesions over several years. She had developed significant increased left leg pain, which has slowly improved over this last week. She has been able to titrate down off her hydrocodone, is using acetaminophen 500 mg 4 times a day, as well as currently on Decadron 2 mg daily. Given the persistence of her pain, and history of lung cancer, had made arrangements for xrays with her PCP of her hip back and leg due to concerns for bony metastases. Patient declined to further follow-up, and does feel she is improving, so has not followed through. She has had ongoing intermittent GI issues, alternating with diarrhea than constipation. She been having increasing nausea and vomiting, this had improved particularly on the Decadron 4 mg, she has not had any vomiting for about 2 weeks, and was using just as needed Haldol/Compazine. On arrival though she did vomit and had an episode of nausea. Unclear if this related to anxiety, as she had multiple worries on her mind. Social History - Living Situation Living arrangement: At home Living Situation: With spouse/s.o. Support System: Patient lives with her significant other Ashley, they have had a nice few weeks as Ashley has not needed to be the caregiver for her 98-year-old mother. She is coming back on Saturday, this is increased assistance anxiety, as well as the tension between the 2 of them. Medications/Allergies - Medications Home Medications: Ambulatory Orders Medication Instructions Recorded Confirmed Albuterol Sulfate [Proair Hfa 1 - 2 puffs INH Q4H PRN 09/27/13 02/06/18 Inhaler] Latanoprost 1 drop EACHEYE QPM 09/27/13 02/06/18 Levothyroxine [Synthroid] 25 mcg PO DAILY 09/27/13 02/06/18 Timolol 0.5% Ophth Drops [Timoptic 1 drop EACHEYE BID 09/27/13 02/06/18 0.5% Ophth Drops] Brimonidine 0.1% Ophth Drops 1 drop RIGHTEYE BID 03/15/16 02/06/18 [Alphagan P 0.1% Ophth Drops] Escitalopram [Lexapro] 10 mg PO DAILY PM 03/16/16 02/06/18 Prochlorperazine [Compazine] 5 mg PO Q6HR PRN #0 tablet 03/19/16 02/06/18 Omeprazole [PriLOSEC] 10 mg PO QDAC 01/01/17 02/06/18 clonazePAM [KlonoPIN] 0.25 mg PO BID PRN 01/01/17 02/06/18 Budesonide/Formoterol Fumarate 2 puffs INH BID 08/02/17 02/06/18 [Symbicort 160-4.5 Mcg Inhaler] Folic Acid 400 mcg PO DAILY 08/02/17 02/06/18 Ipratropium/Albuterol [Duoneb] 3 ml INH PRN PRN 08/02/17 02/06/18 Dexamethasone [Decadron] 1 mg PO DAILY 01/21/18 02/06/18 Haloperidol Oral Soln [Haldol Oral 0.25 ml PO Q6HR PRN 01/21/18 02/06/18 Soln] Senna [Senokot] 8.6 mg PO DAILY MDD 8 tabs 01/21/18 02/06/18 Zolpidem Tartrate [Ambien] 5 mg PO DAILY PRN MDD 10 mg 01/21/18 02/06/18 Acetaminophen 500 mg PO Q4HR PRN MDD 3000 mg 01/28/18 02/06/18 - Allergies Allergies/Adverse Reactions: Allergies Allergy/AdvReac Type Severity Reaction Status Date / Time hydromorphone HCl * AdvReac Unknown Verified 05/31/17 00:25 [From Dilaudid] prednisone AdvReac Hallucinati Verified 05/31/17 00:25 ons fragrances AdvReac Respiratory Uncoded 08/02/17 15:28 Review of Systems - Constitutional Constitutional: reports: Fatigue (much improved;), Poor appetite, Weight loss (125 without clothes; 129 at MD office with clothes). denies: Fever - Eyes Eyes: reports: Vision loss - Ears, Nose & Throat Ears, Nose & Throat: reports: Hearing loss, Dry mouth - Cardiovascular Cardiovascular: reports: Lightheadedness, Decr. exercise tolerance - Respiratory Respiratory: reports: SOB with exertion. denies: Cough, SOB at rest - Gastrointestinal Gastrointestinal: reports: Nausea, Vomiting (had been about 2 weeks; vomited at my visit), Early satiety, Other (improved intake). denies: Constipation - Musculoskeletal Musculoskeletal: reports: Muscle pain (LLE; hip and thigh resolved;), Muscle weakness - Integumentary Integumentary: reports: Dryness - Neurological Neurological: reports: General weakness, Memory problems - Psychiatric Psychiatric: reports: Anxiety - Hematologic/Lymphatic Hematologic/Lymphatic: denies: Recurrent infections - All Other Systems All Other Systems: reports: Reviewed and negative Physical Exam - Vital Signs Temperature: 97.1 C Pulse Rate: 72 Respiratory Rate: 18 O2 Saturation: 93 (ra @ rest) Blood Pressure: 112/72 - Physical Exam General Appearance: positive: Mild distress (patient had vomited on my arrival; had coffee/pills on empty stomach; had not vomited greater than 2 weeks ago and not needing any antiemetics; did have take dose of haldol as still anxious), Anxious Eyes Bilateral: positive: Other (conjunctivae reddented) ENT: negative: Pharyngeal erythema, Oral lesions Neck: positive: Trachea midline Cardiovascular: positive: Regular rate & rhythm Respiratory: positive: Diminished in bases. negative: Wheezes, Rales, Rhonchi Abdomen: positive: Soft. negative: Guarding, Distended Skin: positive: Pallor, Dryness Extremities: positive: No pedal edema Neurologic/Psychiatric: positive: Oriented x3, Weakness, Other (remains severely anxious) Palliative Care - POLST Patient has POLST: Yes POLST Status: DNR, Selective Treatment Pain: Pain improved, Location (Patient's pain has resolved in buttock hip thigh area is some residual down in her left lateral calf area, this does respond to massage. Patient's ambulation is much improved as well.), Comment (Patient getting relief with ongoing massage, CBD oil, and heat. Spasms are better, and more comfortable with sleeping.) Tiredness/Fatigue: Moderate (4-6) (has improved) Drowsiness/Sedation: Mild (1-3) Dyspnea: Mild (1-3) Sleep: Sleep improved Constipation: Yes, Intermittent constipation Feelings of wellbeing/Perceived Quality of Life: Fair, Improved Performance Status: Patient's energy has picked up, as well as ability to move with her left leg. She has returned to driving just in [place], is able to attend her ADLs, she is pleased. - Palliative Care Discussion: Patient continues to struggle with underlying severe anxiety, This is been lifelong for her, but given her most recent episode with pain, uncontrolled nausea, and functional decline. She does feel more vulnerable, and continues to worry about her future demise. Refocused visit on things that were within her control, she does have an appointment with her "[facility]", focusing on the positive is, encouraged to continue to get up and get dressed, and participate more in household tasks. She has trouble challenging her catastrophic thinking, and is easily overwhelmed by her fears. Impression and Recommendations - Palliative Care Impression: This is a 77-year-old woman with history of indolent lung carcinoma, metastatic brain disease status post gamma knife radiosurgery, and CKD stage III. Patient's pain in left hip and leg are improving, continues with weight loss of concern, functional status improved, as well as some improvement in management of her nausea. Palliative care to provide ongoing support regarding pain and symptom management as well as psychosocial support and counseling Recommendations/Counseling Done: 1. Left leg pain. This does appear to have improved, remain concerned could be related to her underlying disease process, but patient not wanting to move forward with further evaluation. She will continue her CBD oil, massage, acupuncture and increase her activity slowly. She is currently not needing the hydrocodone, but acetaminophen 500 mg 3-4 times a day. Patient currently sati sfied with current program. 2. Nausea and vomiting. Patient had had much improvement with Decadron to 4 mg, have decreased to 2 mg, she did have an episode this morning of nausea and vomiting though suspect it was anxiety related. We will continue the 2 mg another week then titrate off, and use the Haldol as first-line as needed, did give her dose while he was there, and Compazine for backup. 3. Weight loss. Patient has had increase in her appetite, and intake, though continues to be challenged by getting adequate fluids. We will continue the Decadron for another week, weight down to 125, counseling regarding strategies she is feeling better with her GI symptoms better controlled, is hopeful to gain some weight back. 4. Constipation. Patient is taking 1 senna daily with current control of constipation. Encouraged to hold only for loose stool and continue to use on a daily basis. She had taken the senna on empty stomach prior to vomiting, encouraged to take all pills with food. 5. Anxiety. Patient has restarted her Lexapro, multiple stressors are adding to her underlying anxiety today, reviewed these of those that are in her control, and those that are not. Counseling provided to normalize current feelings of distress, encouraged to enlist some of her previous coping strategies that have been helpful in the past. 6. Advanced care planning. Patient remains frail, continues with moderate symptom burden, feels particularly vulnerable after this last exacerbation of her symptoms. Patient does have an appointment 03/07 with her oncologist for "check in CT scan". Will at this point in time schedule are re-visit after this appointment, and less she notifies me sooner. Time Spent: 45 minutes with greater than 50% of this done in counseling regarding pain and symptom management, and anticipatory guidance.
== END 2018-02-06 11:01 | disposition home or self-care (01) ==
LOC: PC 11:00
PROVIDERS: ATTEND Nurse Practitioner Adult Health
DX: Z51.5 Encounter for palliative care (principal); M79.18 Myalgia, other site; R63.4 Abnormal weight loss; N18.3 Chronic kidney disease, stage 3 (moderate); R11.2 Nausea with vomiting, unspecified; F41.1 Generalized anxiety disorder; K59.00 Constipation, unspecified; C34.90 Malignant neoplasm of unspecified part of unspecified bronchus or lung; Z79.899 Other long term (current) drug therapy; Z66 Do not resuscitate; Z92.3 Personal history of irradiation; Z85.841 Personal history of malignant neoplasm of brain
CPT/HCPCS: 99349

== ENCOUNTER 2018-02-17 14:01 | Emergency (ER) | payer MEDICARE, OTHER ==
--- NOTE | 2018-02-17 15:11 | ED Physician Documentation ---
PD HPI NVD - Stated complaint Stated Complaint: VOMITING/NAUSEA - Chief complaint Chief Complaint: Abd Pain - History obtained from History obtained from: Patient - History of Present Illness Timing - onset: How many months ago (1 1/2months of continued nausea and some vomiting, more pronounced the past week. Seem by Misty Villa TE[employer]VISION [employer] VIDEO EDITOR, her Palliative Care nurse, and referred to ER fro hydration and perhaps labs/imaging. Patient with known lung CA with brain mets.) Timing - details: Gradual onset, Waxing and waning Associated symptoms: Loss of appetite. No: Fever, Abdominal pain, Hematemesis, Near syncope / syncope, Dysuria Contributing factors: No: Sick contact, Bad food, Travel, Recent antibiotics Improved by: No: Vomiting Worsened by: Eating Similar symptoms before: Diagnosis (lung CA with brain mets, consider gastritis.) Recently seen: Clinic Review of Systems Constitutional: denies: Fever, Chills Nose: denies: Rhinorrhea / runny nose, Congestion Throat: denies: Sore throat Cardiac: denies: Chest pain / pressure, Palpitations, Pedal edema, Calf pain Respiratory: denies: Cough GI: reports: Nausea, Vomiting (bilious). denies: Abdominal Pain, Diarrhea, Hematemesis : denies: Dysuria, Frequency Skin: denies: Rash, Lesions Neurologic: reports: Generalized weakness, Headache. 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 with surgery) : None HEENT: Glaucoma Psych: Depression, Anxiety Musculoskeletal: None Derm: Eczema - Past Surgical History Past Surgical History: Yes General: Colonoscopy Ortho: ACL reconstruction /DINKEY ENGINE FIRER/FIREMAN: Hysterectomy Cardiovascular: Lobectomy Neuro: Gamma knife (x 5 at [facility]) HEENT: Tonsil/Adenoidectomy - Present Medications Home Medications: Ambulatory Orders Medication Instructions Recorded Confirmed Albuterol Sulfate [Proair Hfa 1 - 2 puffs INH Q4H PRN 09/27/13 02/17/18 Inhaler] Latanoprost 1 drop EACHEYE QPM 09/27/13 02/17/18 Levothyroxine [Synthroid] 25 mcg PO DAILY 09/27/13 02/17/18 Timolol 0.5% Ophth Drops [Timoptic 1 drop EACHEYE BID 09/27/13 02/17/18 0.5% Ophth Drops] Brimonidine 0.1% Ophth Drops 1 drop RIGHTEYE BID 03/15/16 02/17/18 [Alphagan P 0.1% Ophth Drops] Escitalopram [Lexapro] 10 mg PO DAILY PM 03/16/16 02/17/18 Prochlorperazine [Compazine] 5 mg PO Q6HR PRN #0 tablet 03/19/16 02/17/18 Omeprazole [PriLOSEC] 10 mg PO QDAC 01/01/17 02/17/18 clonazePAM [KlonoPIN] 0.25 mg PO BID PRN 01/01/17 02/17/18 Budesonide/Formoterol Fumarate 2 puffs INH BID 08/02/17 02/17/18 [Symbicort 160-4.5 Mcg Inhaler] Folic Acid 400 mcg PO DAILY 08/02/17 02/17/18 Ipratropium/Albuterol [Duoneb] 3 ml INH PRN PRN 08/02/17 02/17/18 Dexamethasone [Decadron] 2 mg PO DAILY 01/21/18 02/17/18 Haloperidol Oral Soln [Haldol Oral 0.25 ml PO Q6HR PRN 01/21/18 02/17/18 Soln] Senna [Senokot] 8.6 mg PO DAILY MDD 8 tabs 01/21/18 02/17/18 Zolpidem Tartrate [Ambien] 5 mg PO DAILY PRN MDD 10 mg 01/21/18 02/17/18 Acetaminophen 500 mg PO Q4HR PRN MDD 3000 mg 01/28/18 02/17/18 Dexamethasone [Decadron] 4 mg PO BID #10 tablet 02/17/18 Famotidine 20 mg PO DAILY #30 tablet 02/17/18 Promethazine Supp [Phenergan Supp] 25 mg SC Q6H PRN #6 supp 02/17/18 Promethazine [Phenergan] 25 mg PO Q6H PRN #20 tab 02/17/18 - Allergies Allergies/Adverse Reactions: Allergies Allergy/AdvReac Type Severity Reaction Status Date / Time hydromorphone HCl * AdvReac Unknown Verified 02/17/18 14:34 [From Dilaudid] prednisone AdvReac Hallucinati Verified 02/17/18 14:33 ons fragrances AdvReac Respiratory Uncoded 02/17/18 14:33 - Social History Does the pt smoke?: No Smoking Status: Never smoker Does the pt drink ETOH?: Yes Does the pt have substance abuse?: No - Immunizations Immunizations are current?: Yes - POLST Patient has POLST: Yes POLST Status: Full Code PD ED PE NORMAL - Vitals Vital signs reviewed: Yes - General General: Alert and oriented X 3, No acute distress, Well developed/nourished - HEENT HEENT: Ears normal, Pharynx benign. 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, No motor deficit, No sensory deficit, Normal speech Eye Opening: Spontaneous Motor: Obeys Commands Verbal: Oriented GCS Score: 15 - Psych Psych: Normal mood, Normal affect Results - Vitals Vitals: Vital Signs - 24 hr 02/17/18 02/17/18 14:29 18:06 Temperature 36.6 C 37.1 C Heart Rate 94 79 Respiratory 18 15 Rate Blood Pressure 142/70 H 154/72 H O2 Saturation 94 96 Oxygen O2 Source Room air - Labs Labs: Laboratory Tests 02/17/18 02/17/18 16:00 16:00 WBC 6.5 RBC 4.35 Hgb 13.6 Hct 40.9 MCV 94.0 MCH 31.3 H MCHC 33.3 RDW 14.6 Plt Count 189 MPV 9.1 Neut # (Auto) 4.4 Lymph # (Auto) 1.0 L Garvin # (Auto) 0.7 Eos # (Auto) 0.3 Baso # (Auto) 0.1 Absolute Nucleated RBC 0.00 Nucleated RBC % 0.0 Sodium 138 Potassium 3.6 Chloride 102 Carbon Dioxide 25 Anion Gap 11.0 BUN 30 H Creatinine 1.1 H Estimated GFR (MDRD) 48 L Glucose 99 Calcium 9.2 Phosphorus 3.0 Magnesium 2.3 Total Bilirubin 0.8 AST 16 ALT 15 Alkaline Phosphatase 46 Total Protein 6.7 Albumin 3.6 Globulin 3.1 Albumin/Globulin Ratio 1.2 Lipase 35 - Rads (name of study) head CT Radiology: Prelim report reviewed, EMP read contemporaneously (brain met with edema, no comparisons available here. Will push images to [facility]. ) abd/pelvic CT Radiology: Prelim report reviewed, EMP read contemporaneously PD MEDICAL DECISION MAKING - ED course Complexity details: reviewed results, re-evaluated patient (She is feeling less weakness and less nausea with fluids and medicines here. She is able to sip on some TPN water and is feeling okay with that. We can try a different antiemetic such as promethazine and see if that works at home. She is on omeprazole for stomach and sometimes that can make nausea as a side effect according to [facility]. We will stop that for famotidine. She does have some edema noted on her head CT lesion. We try to get a comparison and opinion from the [facility] radiation oncologist but there was apparently nobody contact lens edge buffer or that the hospital contract down so we will have the patient talk with him tomorrow. She does feel adequately improved to go home tonight.), considered differential (will give IV fluids and meds. Will check metabolic profile and lytes, check UA. Get brain and abd CT to eval for causes to the worse nausea. ), d/w patient Departure - Departure Disposition: 01 Home, Self Care Clinical Impression: Dehydration, Brain metastasis Nausea and vomiting Qualifiers: Vomiting type: bilious vomiting Qualified Code(s): R11.14 - Bilious vomiting Condition: Stable Record reviewed to determine appropriate education?: Yes Instructions: ED Nausea Vomiting Follow-Up: Tona Flood PA-C [Primary Care Provider] - Misty Mcneill ARNP [Provider Admit Priv/Credential] - Margarita Richmond MD [Physician No Access] - Prescriptions: Dexamethasone [Decadron] 4 mg PO BID #10 tablet Famotidine 20 mg PO DAILY #30 tablet Promethazine [Phenergan] 25 mg PO Q6H PRN #20 tab PRN Reason: Nausea / Vomiting Promethazine Supp [Phenergan Supp] 25 mg SC Q6H PRN #6 supp PRN Reason: Nausea / Vomiting Comments: Try promethazine orally or suppository for nausea and see if it works better. Stop your omeprazole and instead take famotidine daily to reduce stomach acids. Sometimes nausea can be a side effect of the omeprazole. Your head CT does show some edema around the brain metastasis and so I would suggest increasing her Decadron to 4 mg twice a day for now until further evaluation by your radiation oncologist. I did talk with Dr. Leblanc your primary lung oncologist and that was his suggestion. There was apparently no one on-call for the radiation oncology according to the [facility] switchboard to talk with him tonight. Call Dr. Richmond tomorrow to update on the findings.
[2018-02-17] MEDS ORDERED: SODIUM CHLORIDE 0.9% 1,000 ML IV ONE ×3 (15:39→17:22)
[2018-02-17] MEDS ORDERED: PROMETHAZINE INJ 12.5 MG in SODIUM CHLORIDE 0.9% 50 ML IV STA (15:40)
[2018-02-17] MEDS ORDERED: FAMOTIDINE 20 MG/2 ML VIAL IVP STA (15:42)
[2018-02-17] MEDS ORDERED: DEXAMETHASONE 10 MG/ML VIAL IVP STA ×2 (15:49→16:18)
[2018-02-17] MEDS ORDERED: IOPAMIDOL-300 100 ML VIAL ONE (15:57)
[2018-02-17 16:30] LABS: BASOPHILS # (AUTO) 0.1 10^3/uL (0.0-0.1); EOSINOPHILS # (AUTO) 0.3 10^3/uL (0.0-0.7); EOSINOPHILS % (AUTO) 4.6 %; HGB - HEMOGLOBIN 13.6 g/dL (12.0-16.0); LYMPHOCYTES % (AUTO) 15.8 %; MEAN CORPUSCULAR HEMOGLOBIN 31.3 pg (27.0-31.0); MEAN CORPUSCULAR HGB CONC 33.3 g/dL (32.0-36.0); MEAN PLATELET VOLUME 9.1 fL (7.9-10.8); MONOCYTES # (AUTO) 0.7 10^3/uL (0.0-1.0); MONOCYTES % (AUTO) 10.6 %; NEUTROPHILS # (AUTO) 4.4 10^3/uL (1.5-6.6); PLT - PLATELET COUNT 189 10^3/uL (130-450); RED BLOOD COUNT 4.35 10^6/uL (4.20-5.40); RED CELL DISTRIBUTION WIDTH 14.6 % (12.0-15.0); WHITE BLOOD COUNT 6.5 x10^3/uL (4.8-10.8)
[2018-02-17 16:37] LABS: ALBUMIN 3.6 g/dL (3.2-5.5); ALBUMIN/GLOBULIN RATIO 1.2 (1.0-2.2); BILIRUBIN,TOTAL 0.8 mg/dL (0.2-1.0); CALCIUM 9.2 mg/dL (8.5-10.3); CREATININE 1.1 mg/dL (0.4-1.0); MAGNESIUM 2.3 mg/dL (1.7-2.8); TOTAL PROTEIN 6.7 g/dL (6.7-8.2)
--- NOTE | 2018-02-17 17:22 | CT Report ---
Reason: nausea and vomiting; h/o brain mets Procedure Date: 02/17/2018 Accession Number: [id number] / [id number] Procedure: CT - Head W/O CPT Code: FULL RESULT: EXAM: CT HEAD EXAM DATE: 02/17/2018 04:39 PM. CLINICAL HISTORY: Nausea and vomiting; h/o brain mets. COMPARISON: None. TECHNIQUE: Multiaxial CT images were obtained from the foramen magnum to the vertex. Reformats: Sagittal and coronal. IV contrast: None. In accordance with CT protocol optimization, one or more of the following dose reduction techniques were utilized for this exam: automated exposure control, adjustment of mA and/or KV based on patient size, or use of iterative reconstructive technique. FINDINGS: Large amount of edema and swelling seen at the left cerebellar hemisphere causing midline shift to the right measuring 7 mm in the posterior fossa. There is partial effacement of the fourth ventricle. There is mass-effect effacing the left posterior lateral peripontine cistern. Left cerebellar vermis located mildly more inferiorly than the right into the foramen magnum, could represent mild downward herniation into the foramen magnum. No intracranial hemorrhage seen. Mild to moderate age-related generalized cerebral atrophy with enlarged ventricles and sulci. No extra-axial fluid collections are seen. The calvarium appears unremarkable. The visualized portions of the paranasal sinuses and mastoid air cells appear unremarkable other than a minimal amount of right ethmoid sinus opacification. IMPRESSION: Large amount of edema and swelling seen at the left cerebellar hemisphere causing midline shift to the right measuring 7 mm in the posterior fossa. There is partial effacement of the fourth ventricle. There is mass-effect effacing the left posterior lateral peripontine cistern. Left cerebellar vermis located mildly more inferiorly than the right into the foramen magnum, could represent mild downward herniation into the foramen magnum. This most likely represents the patient's known brain metastasis. RADIA The above findings were discussed with Nelson Price by Dr. Geraldine Melissa at 17:15 hrs on 02/17/18.
[2018-02-17] MEDS ORDERED: LORazepam 2 MG/ML VIAL IVP STA (17:31)
--- NOTE | 2018-02-17 17:40 | CT Report ---
Reason: NAUSEA AND VOMITING FOR WEEKS, KNOWN LUNG CA Procedure Date: 02/17/2018 Accession Number: [id number] / [id number] Procedure: CT - Abdomen/Pelvis W/O CPT Code: FULL RESULT: EXAM: CT ABDOMEN AND PELVIS (CT KUB) EXAM DATE: 02/17/2018 04:55 PM. CLINICAL HISTORY: NAUSEA AND VOMITING FOR WEEKS, KNOWN LUNG CA. COMPARISONS: CHEST ANGIO 05/31/2017 1:26 AM. TECHNIQUE: Routine axial helical CT imaging was performed through the abdomen and pelvis without IV contrast. Reconstructions: Coronal and sagittal. In accordance with CT protocol optimization, one or more of the following dose reduction techniques were utilized for this exam: automated exposure control, adjustment of mA and/or KV based on patient size, or use of iterative reconstructive technique. FINDINGS: Lung Bases: 4.3 x 3.9 cm lateral right lower lobe lung mass on series image 14, previously 4.2 x 3 cm. On craniocaudal dimension of the lung mass is 4.1 cm today, previously 3.7 cm. Measurement is difficult due to lobulated contour. Multiple right lower lobe lung nodules including a 2.0 x 1.6 cm medial right lower lobe lung nodule on image 11, previously 1.2 x 1.2 cm. Interval increase in size. A right lower lobe lung nodule measured 1.3 x 1.1 cm on series 5 image 25, previously measured 0.9 x 0.6 cm . Interval increase in size. Posterior left lower lobe atelectasis. Sutures along lateral left lower lobe. Left hemidiaphragm elevation. Small hiatal hernia. Right Kidney/Ureter: No stones, hydronephrosis, or hydroureter. No perinephric fat stranding. Left Kidney/Ureter: A 1.4 cm lateral left upper renal lesion has water attenuation suggesting cysts. No renal stone or hydronephrosis. Other Solid Organs: Multiple liver cysts. The unenhanced adrenal glands, pancreas and spleen are grossly unremarkable. Gallbladder/Bile Ducts: Unremarkable. Peritoneal Cavity: Extensive diverticulosis. Portions of colon are limited in assessment due to under distention. No obstructive change. Mobile cecum with cecal base extending near the midline. No volvulus. Pelvic Organs: Prior hysterectomy. No bladder stone or obvious mass. Vasculature: Unremarkable. Other: Lumbar spine degenerative changes. IMPRESSION: 1. Right lower lobe lung mass overall appears similar to CT on 05/31/2017. 2. Multiple right lower lobe metastatic nodules have increased in size. 3. Extensive diverticulosis. No diverticulitis or bowel obstruction evident. RADIA
[2018-02-17 18:07] VITALS: BP 154/72
== END 2018-02-17 19:29 | disposition home or self-care (01) ==
LOC: ED 14:01
DX: E86.0 Dehydration (principal); R11.14 Bilious vomiting; C34.90 Malignant neoplasm of unspecified part of unspecified bronchus or lung; C79.31 Secondary malignant neoplasm of brain
CPT/HCPCS: 36415; 70450; 74176; 80053; 83690; 83735; 84100; 85025; 96361; 96365; 96375; 99284; J2060; J7040

== ENCOUNTER 2018-02-17 18:26 | Outpatient (CLI) | payer MEDICARE, OTHER ==
--- NOTE | 2018-02-17 18:33 | CONSULTATION NOTE ---
Palliative Care Follow Up - Referral Referring Provider: Tona Flood PA-C Time of Visit: [id number] Referral setting: Home (It is a taxing considerable effort for the patient leave the home secondary to nausea and vomiting and weakness.) Referral Reason: Lung Ca with brain mets/Intractable Nausea/Vomiting - Information Sources Records reviewed: Previous records reviewed History/Review of Systems obtained from: Patient Exam limitations: Clinical condition (patient with extreme anxiety; STM issues) - History of Present Illness Update Brief HPI Update: This is a very anxious 77-year-old woman, with history of indolent lung adenocarcinoma, has received multiple systemic treatments as well as immunotherapy, is currently on surveillance. She is due to see her oncologist on 03/04. She also has known brain metastases, which have in the past been treated with gamma knife radiosurgery for several lesions, she has been unable to have MRI of the brain because of her recent kidney disease. Over the last few weeks she has had intermittent episodes of prolonged nausea and vomiting, she will have a couple good weeks, with increased intake, and then with titration of meds, will reoccur. She had been doing fairly well until it seen her on the eighth, this is been another start of increased decline. She had bee n managed on Decadron 2 mg, and intermittent haloperidol. She did report she took some Compazine yesterday, but it made her feel too out of sorts. I find her today somewhat discombobulated, severe high anxiety, she has had ongoing intermittent nausea and vomiting without response to haloperidol which has been effective in the past. She is presenting with increased vertigo and dizziness, this is a new symptom. She does appear dehydrated, her partner Ashley is significantly concerned, patient is reluctant to go the emergency room, this actually is more to do as she does not want to find anything bad. She has lived with this cancer diagnosis for long period of time with severe anxiety about recurrence and in the future. Social History - Living Situation Living arrangement: At home Living Situation: With spouse/s.o. Medications/Allergies - Medications Home Medications: Ambulatory Orders Medication Instructions Recorded Confirmed Albuterol Sulfate [Proair Hfa 1 - 2 puffs INH Q4H PRN 09/27/13 02/17/18 Inhaler] Latanoprost 1 drop EACHEYE QPM 09/27/13 02/17/18 Levothyroxine [Synthroid] 25 mcg PO DAILY 09/27/13 02/17/18 Timolol 0.5% Ophth Drops [Timoptic 1 drop EACHEYE BID 09/27/13 02/17/18 0.5% Ophth Drops] Brimonidine 0.1% Ophth Drops 1 drop RIGHTEYE BID 03/15/16 02/17/18 [Alphagan P 0.1% Ophth Drops] Escitalopram [Lexapro] 10 mg PO DAILY PM 03/16/16 02/17/18 Prochlorperazine [Compazine] 5 mg PO Q6HR PRN #0 tablet 03/19/16 02/17/18 Omeprazole [PriLOSEC] 10 mg PO QDAC 01/01/17 02/17/18 clonazePAM [KlonoPIN] 0.25 mg PO BID PRN 01/01/17 02/17/18 Budesonide/Formoterol Fumarate 2 puffs INH BID 08/02/17 02/17/18 [Symbicort 160-4.5 Mcg Inhaler] Folic Acid 400 mcg PO DAILY 08/02/17 02/17/18 Ipratropium/Albuterol [Duoneb] 3 ml INH PRN PRN 08/02/17 02/17/18 Dexamethasone [Decadron] 2 mg PO DAILY 01/21/18 02/17/18 Haloperidol Oral Soln [Haldol Oral 0.25 ml PO Q6HR PRN 01/21/18 02/17/18 Soln] Senna [Senokot] 8.6 mg PO DAILY MDD 8 tabs 01/21/18 02/17/18 Zolpidem Tartrate [Ambien] 5 mg PO DAILY PRN MDD 10 mg 01/21/18 02/17/18 Acetaminophen 500 mg PO Q4HR PRN MDD 3000 mg 01/28/18 02/17/18 - Allergies Allergies/Adverse Reactions: Allergies Allergy/AdvReac Type Severity Reaction Status Date / Time hydromorphone HCl * AdvReac Unknown Verified 02/17/18 14:34 [From Dilaudid] prednisone AdvReac Hallucinati Verified 02/17/18 14:33 ons fragrances AdvReac Respiratory Uncoded 02/17/18 14:33 Review of Systems - Constitutional Constitutional: reports: Fatigue, Weakness, Poor appetite, Weight loss (has not weighed since last visit; but S/O feels has continued; patient reports to anxious to know). denies: Fever, Chills - Eyes Eyes: reports: Vision loss - Ears, Nose & Throat Ears, Nose & Throat: reports: Hearing loss, Vertigo, Dry mouth - Cardiovascular Cardiovascular: reports: Lightheadedness, Exertional dyspnea, Decr. exercise tolerance - Respiratory Respiratory: reports: SOB with exertion. denies: SOB at rest - Gastrointestinal Gastrointestinal: reports: Nausea, Vomiting (see HPI), Reflux/heartburn, Poor appetite - Genitourinary Genitourinary: denies: Dysuria - Musculoskeletal Musculoskeletal: reports: Muscle weakness, Assistive devices (started using a walker) - Integumentary Integumentary: reports: Dryness - Neurological Neurological: reports: General weakness, Dizziness, Memory problems - Psychiatric Psychiatric: reports: Depression, Anxiety - All Other Systems All Other Systems: reports: Reviewed and negative Physical Exam - Vital Signs Temperature: 96.9 C Pulse Rate: 82 Respiratory Rate: 18 O2 Saturation: 93 (ra @ rest) Blood Pressure: 152/78 (anxious after recommendation to go to ED) - Physical Exam General Appearance: positive: Moderate distress, Anxious Eyes Bilateral: positive: Other (conjunctivae reddened; baseline) ENT: positive: Dry mucous membranes Neck: positive: No JVD, Trachea midline Cardiovascular: positive: Regular rate & rhythm, Diastolic murmur Respiratory: positive: Diminished in bases. negative: Wheezes Abdomen: positive: Non-tender, Soft Skin: positive: Pallor, Dryness Extremities: positive: No pedal edema Neurologic/Psychiatric: positive: Oriented x3, Weakness, Depressed mood/affect Palliative Care - POLST Patient has POLST: Yes POLST Status: DNR, Selective Treatment Pain: Pain unchanged, Location (left leg radiating through hip and into calf area; not acute enough to take vicodin; using APAP and massage) Tiredness/Fatigue: Severe (7-10) Drowsiness/Sedation: Moderate (4-6) Nausea: Severe (7-10), With vomiting Depression: Severe (7-10) Anxiety: Severe (7-10) Dyspnea: Mild (1-3) Anorexia: Severe (7-10), Weight loss Sleep: Variable sleep pattern Constipation: Intermittent constipation Feelings of wellbeing/Perceived Quality of Life: Poor, Worsening Performance Status: Patient has been having functional decline, with less activity tolerance. She was able to go to [employer] last night, this seems like an anomaly. She is weak and shaky today, difficulty getting from sitting to standing, has been using a walker. She has had decreased food and fluid intake for about a week now, she has been previously been able to independently shower. She is spending most the time on the couch. I would put her at a PPS of about 50% - Palliative Care Discussion: Discussed at length with patient regarding my concerns, given her somewhat intractable nausea and vomiting, and now presenting with dehydration and suspicious of brain metastases. She does have high anxiety, she is very suggestible, but had been responsive somewhat to the higher doses of Decadron at 4 mg. Discussed in the context of being able to hydrate her, do labs, and workup she would need to go to the ED. Despite her anxiety she has acquiesced, her partner Ashley really would like to understand also what is going on, to move forward with decision-making regarding her current situation. Impression and Recommendations - Palliative Care Impression: This is a 77-year-old woman with severe anxiety disorder, lung cancer with known history of brain metastases. Concern regarding increased severity of nausea and vomiting, ongoing weight loss, now presents with acute dehydration and uncontrolled symptoms. Discussed this difficult without further information, to determine goals of care. Patient is agreeable to going to the emergency room, with the goal to workup her current symptomology. Recommendations/Counseling Done: 1. Intractable nausea and vomiting. Called to emergency room, discussed with Dr. Cayden Levi, Patient's history and concerns regarding her current intractable symptomology. At the very least she needs rehydration, and workup. Assisted patient to the car, patient declined ambulance transfer. Patient was able to ambulate and with assistance may get into the car. Notified PCP, Tona Flood PA-C regarding plan, in agreement, she will follow up after ED visit if discharged home. 2. Advanced care planning. Will await outcome of her ED visit, regarding further development of goals of care. Time Spent: 45 minutes with getting 50% of this done in counseling, evaluating current situation, discussing goals of care, decision was made to go to the ED. Coordination of care with ED physician and PCP
== END 2018-02-17 18:27 | disposition home or self-care (01) ==
LOC: PC 18:26
PROVIDERS: ATTEND Nurse Practitioner Adult Health
DX: Z51.5 Encounter for palliative care (principal); R11.2 Nausea with vomiting, unspecified; E86.0 Dehydration; R42 Dizziness and giddiness; R41.3 Other amnesia; R63.4 Abnormal weight loss; F41.9 Anxiety disorder, unspecified; C34.90 Malignant neoplasm of unspecified part of unspecified bronchus or lung; C79.31 Secondary malignant neoplasm of brain; Z79.52 Long term (current) use of systemic steroids; Z66 Do not resuscitate; Z79.899 Other long term (current) drug therapy
CPT/HCPCS: 99349

== ENCOUNTER 2018-04-03 10:30 | Outpatient (CLI) | payer MEDICARE, OTHER ==
[2018-04-03 15:01] LABS: CREATININE 1.3 mg/dL (0.4-1.0)
== END 2018-04-03 23:59 | disposition home or self-care (01) ==
LOC: LAB.R 10:30
PROVIDERS: ATTEND Physician Assistant Medical
DX: Z79.899 Other long term (current) drug therapy (principal)
CPT/HCPCS: 82565; 84520

== ENCOUNTER 2018-04-03 23:41 | Outpatient (CLI) | payer MEDICARE, OTHER | END 2018-04-03 23:42 | disposition critical access hospital (66) | LOC: EMS 23:41 | PROVIDERS: ATTEND Surgery | DX: M25.552 Pain in left hip (principal) | CPT/HCPCS: A0425; A0429 ==

== ENCOUNTER 2018-04-03 23:52 | Inpatient (IN) | payer MEDICARE, OTHER ==
--- NOTE | 2018-04-03 23:57 | ED Physician Documentation ---
PD HPI LOWER EXT INJURY - Stated complaint Stated Complaint: GLF - LEFT HIP PAIN, WEAKNESS - History obtained from History obtained from: Patient, EMS - History of Present Illness PD HPI LOW EXT INJURY LOCATION: Left, Hip Type of injury: Fall Where injury occurred: Home Timing - onset: How many minutes ago (approximately 20-30 minutes [employer]UCK [employer]) Timing - details: Abrupt onset Pain level now: 6 Improved by: Rest Worsened by: Moving Associated symptoms: No: Weakness, Numbness, Tingling, Swelling, Discolored Contributing factors: No: Anticoagulated, Prior ortho surgery, Prosthetic joint Recently seen: Surgery (gamma knife surgery (brain mets) last month) - Additional information Additional information: while walking from bedroom to kitchen, patient lost balance and fell, landed on her left side and c/o left hip pain. BIBA. Review of Systems Constitutional: reports: Reviewed and negative Eyes: reports: Reviewed and negative Ears: reports: Reviewed and negative Nose: reports: Reviewed and negative Throat: reports: Reviewed and negative Cardiac: reports: Reviewed and negative Respiratory: reports: Reviewed and negative GI: reports: Reviewed and negative : denies: Incontinent Skin: reports: Reviewed and negative Musculoskeletal: reports: Joint pain, Pain with weight bearing (unable to weight-bear LLE). denies: Neck pain, Back pain Neurologic: denies: Focal weakness, Headache, Head injury, LOC PD PAST MEDICAL HISTORY - Past Medical History Cardiovascular: Valve disorder Respiratory: Asthma, Other (Lung Cancer/indolent DX 07/2011 with brain mets, treated with gamma knife RT at [facility]) Endocrine/Autoimmune: HyPOthyroidism GI: GERD CCNA: Breast cancer (hx of Bilat. with surgery) : None HEENT: Glaucoma Psych: Depression, Anxiety Musculoskeletal: None Derm: Eczema - Past Surgical History Past Surgical History: Yes General: Colonoscopy Ortho: ACL reconstruction /CCNA: Hysterectomy Cardiovascular: Lobectomy Neuro: Gamma knife (x 5 at [facility]) HEENT: Tonsil/Adenoidectomy - Present Medications Home Medications: Ambulatory Orders Medication Instructions Recorded Confirmed Albuterol Sulfate [Proair Hfa 1 - 2 puffs INH Q4H PRN 09/27/13 02/17/18 Inhaler] Latanoprost 1 drop EACHEYE QPM 09/27/13 02/17/18 Levothyroxine [Synthroid] 25 mcg PO DAILY 09/27/13 02/17/18 Timolol 0.5% Ophth Drops [Timoptic 1 drop EACHEYE BID 09/27/13 02/17/18 0.5% Ophth Drops] Brimonidine 0.1% Ophth Drops 1 drop RIGHTEYE BID 03/15/16 02/17/18 [Alphagan P 0.1% Ophth Drops] Escitalopram [Lexapro] 10 mg PO DAILY PM 03/16/16 02/17/18 Prochlorperazine [Compazine] 5 mg PO Q6HR PRN #0 tablet 03/19/16 02/17/18 Omeprazole [PriLOSEC] 10 mg PO QDAC 01/01/17 02/17/18 clonazePAM [KlonoPIN] 0.25 mg PO BID PRN 01/01/17 02/17/18 Budesonide/Formoterol Fumarate 2 puffs INH BID 08/02/17 02/17/18 [Symbicort 160-4.5 Mcg Inhaler] Folic Acid 400 mcg PO DAILY 08/02/17 02/17/18 Ipratropium/Albuterol [Duoneb] 3 ml INH PRN PRN 08/02/17 02/17/18 Dexamethasone [Decadron] 2 mg PO DAILY 01/21/18 02/17/18 Haloperidol Oral Soln [Haldol Oral 0.25 ml PO Q6HR PRN 01/21/18 02/17/18 Soln] Senna [Senokot] 8.6 mg PO DAILY MDD 8 tabs 01/21/18 02/17/18 Zolpidem Tartrate [Ambien] 5 mg PO DAILY PRN MDD 10 mg 01/21/18 02/17/18 Acetaminophen 500 mg PO Q4HR PRN MDD 3000 mg 01/28/18 02/17/18 Dexamethasone [Decadron] 4 mg PO BID #10 tablet 02/17/18 Famotidine 20 mg PO DAILY #30 tablet 02/17/18 Promethazine Supp [Phenergan Supp] 25 mg OK Q6H PRN #6 supp 02/17/18 Promethazine [Phenergan] 25 mg PO Q6H PRN #20 tab 02/17/18 - Allergies Allergies/Adverse Reactions: Allergies Allergy/AdvReac Type Severity Reaction Status Date / Time hydromorphone HCl * AdvReac Unknown Verified 02/17/18 14:34 [From Dilaudid] prednisone AdvReac Hallucinati Verified 02/17/18 14:33 ons fragrances AdvReac Respiratory Uncoded 02/17/18 14:33 - Social History Does the pt smoke?: No Smoking Status: Never smoker Does the pt drink ETOH?: Yes Does the pt have substance abuse?: No - Immunizations Immunizations are current?: Yes - POLST Patient has POLST: Yes POLST Status: Full Code PD ED PE NORMAL - Vitals Vital signs reviewed: Yes - General General: Alert and oriented X 3 - HEENT HEENT: Atraumatic, PERRL, EOMI - Neck Neck: Supple, no meningeal sign, No bony TTP - Cardiac Cardiac: RRR, No murmur - Respiratory Respiratory: No respiratory distress, Clear bilaterally - Abdomen Abdomen: Soft, Non tender - Back Back: No spinal TTP - Derm Derm: Normal color, Warm and dry - Extremities Extremities: No deformity, No edema - Neuro Neuro: Alert and oriented X 3, prize jacker 2-12 intact, Normal speech PD ED PE EXPANDED - Extremities Extremities: Tenderness, Limited ROM, Left hip Results - Vitals Vitals: Vital Signs - 24 hr 04/03/18 04/04/18 23:56 01:37 Temperature 36.5 C Heart Rate 91 93 Respiratory 18 14 Rate Blood Pressure 156/77 H 144/74 H O2 Saturation 95 94 Oxygen O2 Source Nasal cannula - Labs Labs: Laboratory Tests 04/04/18 04/04/18 04/04/18 01:54 01:54 01:54 WBC 7.8 RBC 3.51 L Hgb 11.4 L Hct 34.7 L MCV 98.9 MCH 32.4 H MCHC 32.8 RDW 15.8 H Plt Count 206 MPV 8.2 Neut # (Auto) 5.7 Lymph # (Auto) 1.0 L Mathews # (Auto) 0.8 Eos # (Auto) 0.4 Baso # (Auto) 0.0 Absolute Nucleated RBC 0.00 Nucleated RBC % 0.1 PT 11.8 INR 1.0 APTT 29.3 Sodium 136 Potassium 3.5 Chloride 105 Carbon Dioxide 24 Anion Gap 7.0 BUN 20 Creatinine 1.2 H Estimated GFR (MDRD) 43 L Glucose 97 Calcium 8.5 Phosphorus 2.9 Magnesium 2.4 - Rads (name of study) left hip xray w/pelvis Radiology: Prelim report reviewed, See rad report PD MEDICAL DECISION MAKING - ED course Complexity details: reviewed results, re-evaluated patient, considered differential, d/w patient ED course: D/W Dr. Estes (hospitalist), will admit to hospitalist service. D/W Dr. Sandoval; will consult in AM Departure - Departure Disposition: 66 [facility] DC/Xfer Clinical Impression: Hip fracture Qualifiers: Encounter type: initial encounter Fracture type: closed Laterality: left Qualified Code(s): S72.002A - Fracture of unspecified part of neck of left femur, initial encounter for closed fracture Condition: Stable Discharge Date/Time: 04/04/18 02:55
[2018-04-04] MEDS ORDERED: MORPHINE 2 MG/ML CARPUJECT IVP STA ×2 (01:27→02:43)
[2018-04-04] MEDS ORDERED: PROCHLORPERAZINE INJ 10 MG in SODIUM CHLORIDE 0.9% 50 ML IV ONE (01:27)
[2018-04-04] MEDS ORDERED: SODIUM CHLORIDE 0.9% 1,000 ML IV STA (01:28)
[2018-04-04 02:05] LABS: RED BLOOD COUNT 3.51 10^6/uL (4.20-5.40)
[2018-04-04 02:08] LABS: BASOPHILS % (AUTO) 0.2 %; EOSINOPHILS # (AUTO) 0.4 10^3/uL (0.0-0.7); HGB - HEMOGLOBIN 11.4 g/dL (12.0-16.0); LYMPHOCYTES % (AUTO) 12.5 %; MEAN CORPUSCULAR HEMOGLOBIN 32.4 pg (27.0-31.0); MEAN CORPUSCULAR HGB CONC 32.8 g/dL (32.0-36.0); MEAN CORPUSCULAR VOLUME 98.9 fL (81.0-99.0); MEAN PLATELET VOLUME 8.2 fL (7.9-10.8); MONOCYTES # (AUTO) 0.8 10^3/uL (0.0-1.0); MONOCYTES % (AUTO) 9.8 %; NEUTROPHILS # (AUTO) 5.7 10^3/uL (1.5-6.6); NEUTROPHILS % (AUTO) 72.5 %; PLT - PLATELET COUNT 206 10^3/uL (130-450); RED CELL DISTRIBUTION WIDTH 15.8 % (12.0-15.0); WHITE BLOOD COUNT 7.8 x10^3/uL (4.8-10.8)
[2018-04-04] MEDS ORDERED: ONDANSETRON 4 MG/2 ML VIAL IVP PRN (02:12)
[2018-04-04] MEDS ORDERED: ONDANSETRON ODT 4 MG TABLET TL PRN (02:12)
--- NOTE | 2018-04-04 02:16 | XRAY Report ---
Reason: fall, pain Procedure Date: 04/04/2018 Accession Number: [id number] / [id number] Procedure: XR - Hip w/Pelvis 2-3V LT CPT Code: FULL RESULT: EXAM: LEFT HIP AND PELVIS RADIOGRAPHY EXAM DATE: 04/04/2018 02:03 AM. HISTORY: Fall, pain. COMPARISONS: XR PELVIS 1 OR 2 VIEWS 01/23/2010 3:56 PM. TECHNIQUE: 1 view of the pelvis and 1 view of the hip. FINDINGS: Bones: There is a nondisplaced left femoral neck fracture. Joints: The bilateral hip, pubis symphysis, and sacroiliac joints are preserved. Soft Tissues: Normal. No soft tissue swelling. IMPRESSION: Nondisplaced, left femoral neck fracture. RADIA
[2018-04-04 02:27] LABS: PT - PROTHROMBIN TIME 11.8 secs (9.9-12.6)
--- NOTE | 2018-04-04 02:28 | HISTORY & PHYSICAL EXAMINATION ---
Chief Complaint - Chief Complaint Chief Complaint: S/P fall with pain to left hip unable to ambulate. 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 s/p gamma-knife surgery x 5 at [facility], anxiety, depression, GERD, hypothyroidism, invasive ductal breast CA Dx in 1994 s/p chemorad tx and immunotx, Lung CA w/ LLL lobectomy s/p chemo-immunotx with multiple pulmonary nodules seen on CT abd/pelvis on 02/17/18, sees oncology as outpatient as well as Palliative care service with last note on 02/06/18, CKD stage 3 with last cr 1.2, was scheduled for CT scan with IV contrast today, but unfortunately patient fell yesterday while walking to kitchen on her left side and mentioned unable to ambulate after fall for which she conveyed pain to left hip. Patient has had 3 falls in the past month per her DPOA, for which concern for mets to spine and or bone was thought initially to explain possible LLE weakness due to mets-induced myelopathy of T/L-spine. Patient states that she has been off of Decadron ever since gamma-knife procedure with no mets lesions per her hx. Patient's CBC shows mild macrocytosis anemia, chemistries unremarkable. Dr. Sandoval from orthopedic service has been consulted and expressed concern for a "pathological" fracture in the setting of patients active metastatic disease associated with adenoCA of lung stage 4. Patient to be kept NPO for now, will hold off on lovenox, although indicated in active cancer or mets due to high risk of DVT/PE. Patient denies fevers, SOB, chest pain, rash, N/V/-GI symptoms. 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 She has never been , she does not have any children. She has been living on [facility] for 18 years. She is originally from [place], [place]. She lived in [place] for many years prior to moving to [facility]. The patient is a former smoker smoked 2 packs a day for about 15 years quit in 1976. She drinks 4 ounces of wine a night and denies any illicit drug use. - Substance History Use: Uses substance without health or social issues: NONE, Tobacco (Hx of smoking) - POLST Patient has POLST: Yes POLST Status: Full Code Meds/Allgy - Home Medications Home Medications: Ambulatory Orders Medication Instructions Recorded Confirmed Albuterol Sulfate [Proair Hfa 1 - 2 puffs INH Q4H PRN 09/27/13 02/17/18 Inhaler] Latanoprost 1 drop EACHEYE QPM 09/27/13 02/17/18 Levothyroxine [Synthroid] 25 mcg PO DAILY 09/27/13 02/17/18 Timolol 0.5% Ophth Drops [Timoptic 1 drop EACHEYE BID 09/27/13 02/17/18 0.5% Ophth Drops] Brimonidine 0.1% Ophth Drops 1 drop RIGHTEYE BID 03/15/16 02/17/18 [Alphagan P 0.1% Ophth Drops] Escitalopram [Lexapro] 10 mg PO DAILY PM 03/16/16 02/17/18 Prochlorperazine [Compazine] 5 mg PO Q6HR PRN #0 tablet 03/19/16 02/17/18 Omeprazole [PriLOSEC] 10 mg PO QDAC 01/01/17 02/17/18 clonazePAM [KlonoPIN] 0.25 mg PO BID PRN 01/01/17 02/17/18 Budesonide/Formoterol Fumarate 2 puffs INH BID 08/02/17 02/17/18 [Symbicort 160-4.5 Mcg Inhaler] Folic Acid 400 mcg PO DAILY 08/02/17 02/17/18 Ipratropium/Albuterol [Duoneb] 3 ml INH PRN PRN 08/02/17 02/17/18 Dexamethasone [Decadron] 2 mg PO DAILY 01/21/18 02/17/18 Haloperidol Oral Soln [Haldol Oral 0.25 ml PO Q6HR PRN 01/21/18 02/17/18 Soln] Senna [Senokot] 8.6 mg PO DAILY MDD 8 tabs 01/21/18 02/17/18 Zolpidem Tartrate [Ambien] 5 mg PO DAILY PRN MDD 10 mg 01/21/18 02/17/18 Acetaminophen 500 mg PO Q4HR PRN MDD 3000 mg 01/28/18 02/17/18 Dexamethasone [Decadron] 4 mg PO BID #10 tablet 02/17/18 Famotidine 20 mg PO DAILY #30 tablet 02/17/18 Promethazine Supp [Phenergan Supp] 25 mg HI Q6H PRN #6 supp 02/17/18 Promethazine [Phenergan] 25 mg PO Q6H PRN #20 tab 02/17/18 - Allergies Allergies/Adverse Reactions: Allergies Allergy/AdvReac Type Severity Reaction Status Date / Time hydromorphone HCl * AdvReac Unknown Verified 02/17/18 14:34 [From Dilaudid] prednisone AdvReac Hallucinati Verified 02/17/18 14:33 ons fragrances AdvReac Respiratory Uncoded 02/17/18 14:33 Review of Systems - Constitutional Constitutional: reports: Fatigue, Weakness. denies: Fever, Chills, Poor appetite, Night sweats - Eyes Eyes: denies: Pain - Ears, Nose & Throat Ears, Nose & Throat: denies: Vertigo - Cardiovascular Cariovascular: denies: Irregular heart rate, Palpitations, Chest pain, Edema, Lightheadedness, Syncope, Exertional dyspnea - Respiratory Respiratory: denies: Cough, Sputum production, Wheezing, Hemoptysis - Gastrointestinal Gastrointestinal: denies: Abdominal pain, Diarrhea, Poor appetite - Musculoskeletal Musculoskeletal: reports: Other (LLE weakness) - Integumentary Integumentary: denies: Rash, Pruritis, Lesions - Neurological Neurological: reports: General weakness, Focal weakness, Abnormal gait, Inc oordination. denies: Dizziness, Memory problems, Pre-existing deficit, Slurred speech - Psychiatric Psychiatric: reports: Anxiety. denies: Depression - Endocrine Endocrine: denies: Polyuria, Polydypsia, Polyphagia - Hematologic/Lymphatic Hematologic/Lymphatic: denies: Anemia - All Other Systems All Other Systems: reports: Reviewed and negative Prior Level of Functionality: Patient had been ambulatory with walker prior to fall Exam - Vital Signs Vital Signs: Vital Signs x48h Temp Pulse Resp BP Pulse Ox 04/04/18 01:37 93 14 144/74 H 94 04/03/18 23:56 36.5 C 91 18 156/77 H 95 VSS - Physical Exam General Appearance: positive: No acute distress Eyes Bilateral: positive: Normal inspection ENT: positive: ENT inspection nml Neck: positive: Nml inspection, Thyroid nml, Trachea midline. negative: No JVD, Thyromegaly Respiratory: positive: Chest non-tender, No respiratory distress, Breath sounds nml. negative: Wheezes, Rales Cardiovascular: positive: Regular rate & rhythm, Systolic murmur. negative: Irregularly irregular, Tachycardia, Gallop/S3 Peripheral Pulses: positive: 2+ Abdomen: positive: Non-tender, No organomegaly, Nml bowel sounds. negative: Hepatomegaly, Splenomegaly Skin: positive: Color nml, No rash, Warm. negative: Cyanosis, Skin rash, Embolic lesions Extremities: positive: Pedal edema, Other (Left lower extremity is internally rotated and LROM to adduction/abduction). negative: Calf tenderness Neurologic/Psychiatric: positive: Oriented x3, CN's nml (2-12), Motor nml, Sensation nml, Mood/affect nml Conclusion/Plan - Problem List (1) Pathological fracture of hip Conclusion/Plan: Patient likely with an acute pathologic fracture seen on Xray; non-displaced femoral neck fx and would need hemiarthroplasty per Ortho service. However, due to extensive decadron use may have underlying osteopenia/osteoporosis with high risk for fractures of long bone. Dr. Sandoval to assess for repair in am, keep NPO, f luids and pain mgmt. PT/OT ordered for post-op assessment and may need rehab. Pain control with morphine. Qualifiers: Pathology associated with fracture: neoplastic disease Encounter type: initial encounter Laterality: left Qualified Code(s): M84.552A - Pathological fracture in neoplastic disease, left femur, initial encounter for fracture (2) Metastatic adenocarcinoma Conclusion/Plan: Patient with stage 4 adenoCA of lung with metastatic spread to brain s/p gamma- knife x [address] [facility]. Currently off decadron, however unclear if spread has gone to T/L-spine especially in the setting of multiple falls and evidence of pathological fracture. Would need a CT spine with IV contrast once patient is properly hydrated due to impaired kidney function. Would consult palliative care service again since last note on patient's prognosis and status was on 02/06/18. 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 CT of L-spine withIV contrast to follow likely post-operatively from left hemiarthroplasty. Would recommend IVF's to continue as well as nephroprophalyxis with Mucomyst 600 mg po bid x2 to start on day 1 before procedure. PT/OT ordered. (4) Anxiety and depression Conclusion/Plan: Restart home meds post-op, on SSRI. Place on IV ativan prn for now. (5) Hypothyroidism Conclusion/Plan: To continue with synthroid post-op. Qualifiers: Hypothyroidism type: acquired Qualified Code(s): E03.9 - Hypothyroidism, unspecified (6) DVT prophylaxis Conclusion/Plan: Patient with active stage 4 adenoCA of lung with mets to brain has high DVT/TE- PE risk that would necessitate DVT ppx with lovenox as recommended, however will be assessed for a left hemiarthroplasty in am and will need lovenox on HOLD to minimize bleeding risk intra-operatively. Will need to start pos-op. (7) CKD (chronic kidney disease) stage 3, GFR 30-59 ml/min Conclusion/Plan: Patient with a baseline cr of 1.1-2.0 in [facility], with cr 1.2 now. On IVF's, will need DELONTE ppx if CT L-spine to be done. Would recommend IVF's to continue as well as nephroprophalyxis with Mucomyst 600 mg po bid x2 to start on day 1 before procedure. Avoid nephrotoxic agents for now. - Lab Results Fish Bones: 04/04/18 01:54 04/04/18 01:54 - Diagnostic Imaging Results Diagnostic Imaging Results: positive: Prelim report reviewed Diagnostic Imaging Results Comments: Shows possible left subcapital pathologic fx Core Measures - Anticipated LOS I expect patient to be DC'd or transferred within 96 hours.: No - DVT/VTE - Prophylaxis VTE/DVT Device ordered at admit?: Yes VTE/DVT Prophylaxis med ordered at admit?: No Not Ordered - Medical Reason: Not indicated (Surgical repair anticipated) - Stroke - Rehab Assessment Rehab services assessment to be ordered?: No - AMI - Statin at Admit Aspirin Prescribed on Admit: No Not Ordered - Medical Reason: Not indicated
[2018-04-04 02:32] LABS: CALCIUM 8.5 mg/dL (8.5-10.3); CREATININE 1.2 mg/dL (0.4-1.0); MAGNESIUM 2.4 mg/dL (1.7-2.8); PHOSPHORUS 2.9 mg/dL (2.5-4.6)
[2018-04-04] MEDS: MORPHINE 2 MG/ML CARPUJECT IVP PRN ×5 (04:55→14:40)
[2018-04-04] MEDS: PANTOPRAZOLE 40 MG VIAL IVP SCH (06:50)
--- NOTE | 2018-04-04 09:37 | PROVIDER PROGRESS NOTE ---
Subjective - Prog Note Date Prog Note Date: 04/04/18 Prog Note Time: 09:35 - Subjective Pt reports feeling: Worse (Patient with probable left pathologic hip fracture admitted after a painful GLF last PM. Hx of metastatic lung Ca since 2010. Two to three month hx of left leg pain with ambulation - resisted workup such as XR since symptoms did improve with steroids. Hospice has been considered) Objective - Vital Signs/Intake & Output Vital Signs: Vital Signs x48h Temp Pulse Pulse Resp BP BP Pulse Ox 04/04/18 07:37 37.1 C 97 20 134/52 H 96 04/04/18 03:23 37.5 C 94 18 144/78 H 93 04/04/18 01:37 93 14 144/74 H 94 Intake & Output: Intake & Output 04/01/18 04/02/18 04/03/18 04/04/18 23:59 23:59 23:59 23:59 Intake Total 52 Output Total 100 Balance -48 - Lab Results Fish Bones: 04/04/18 01:54 04/04/18 01:54 Other Labs: Lab Results x24hrs 04/04/18 04/04/18 04/04/18 Range/Units 01:54 01:54 01:54 WBC 7.8 (4.8-10.8) x10^3/uL RBC 3.51 L (4.20-5.40) 10^6/uL Hgb 11.4 L (12.0-16.0) g/dL Hct 34.7 L (37.0-47.0) % MCV 98.9 (81.0-99.0) fL MCH 32.4 H (27.0-31.0) pg MCHC 32.8 (32.0-36.0) g/dL RDW 15.8 H (12.0-15.0) % Plt Count 206 (130-450) 10^3/uL MPV 8.2 (7.9-10.8) fL Neut # (Auto) 5.7 (1.5-6.6) 10^3/uL Lymph # (Auto) 1.0 L (1.5-3.5) 10^3/uL Norton # (Auto) 0.8 (0.0-1.0) 10^3/uL Eos # (Auto) 0.4 (0.0-0.7) 10^3/uL Baso # (Auto) 0.0 (0.0-0.1) 10^3/uL Absolute Nucleated RBC 0.00 x10^3/uL Nucleated RBC % 0.1 /100WBC PT 11.8 (9.9-12.6) secs INR 1.0 (0.8-1.2) APTT 29.3 (24.9-33.3) secs Sodium 136 (135-145) mmol/L Potassium 3.5 (3.5-5.0) mmol/L Chloride 105 (101-111) mmol/L Carbon Dioxide 24 (21-32) mmol/L Anion Gap 7.0 (6-13) BUN 20 (6-20) mg/dL Creatinine 1.2 H (0.4-1.0) mg/dL Estimated GFR (MDRD) 43 L (>89) Glucose 97 (70-100) mg/dL Calcium 8.5 (8.5-10.3) mg/dL Phosphorus 2.9 (2.5-4.6) mg/dL Magnesium 2.4 (1.7-2.8) mg/dL - Diagnostic Imaging Diagnostic Imaging Comments: XR shows probable pathologic left hi fracture - Other Results/Comments Other Results/Comments: EXAM: Painful left hip motion. Sensation intact. Moves toes well. Good cap filling Assessment/Plan - Problem List (1) Hip fracture Impression: Stable . 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 SHe is uncertain about whether to proceed with surgery (ramon-arthroplasty) vs hospice care only. Wishes to proceed with CT scan to r/o spiny involvement. Will discuss with oncologist re: further treatment for lung Ca with view of the information. Will defer any surgery for the moment. Qualifiers: Encounter type: initial encounter Fracture type: closed Laterality: left Qualified Code(s): S72.002A - Fracture of unspecified part of neck of left femur, initial encounter for closed fracture
[2018-04-04] MEDS: NS W/20 MEQ KCL 1,000 ML IV SCH ×2 (10:16→20:31)
--- NOTE | 2018-04-04 10:50 | CONSULTATION NOTE ---
Palliative Care Follow Up - Referral Referring Provider: Leta WINCHESTER Time of Visit: [id number]; 1:30-1:45 Referral setting: Hospitalized patient Referral Reason: Pathological hip fx/lung cancer with brain mets - Information Sources Records reviewed: Previous records reviewed History/Review of Systems obtained from: Patient, Family (S/O Ashley present for most of visit) - History of Present Illness Update Brief HPI Update: This is a 77-year-old woman well-known to me from the outpatient palliative care setting, with a history of indolent lung Adenocarcinoma who has received multiple systemic and immunotherapies.She has had a prior left lower lobe lobectomy, known right lung nodular lesions, and recently diagnosed with CKD Sta ge III. At this point has had no further options and has been in surveillance. She also has known brain metastases, which had been previously successfully treated with gamma knife radiosurgery over several years. She most recently presented with increasing nausea and vomiting, neuro signs, and found to have recurrent lesions and received craniotomy as well as gamma knife in January, she is just finishing her Decadron taper from this. She has been admitted to [facility] with an acute assumed pathologic fracture of her left hip. She actually had presented with pain in her left leg and thigh in December, with concern for cord compression regarding patient was having more numbness and tin gling, difficulty with balance, arrangements have been made for radiologic evaluation but patient had some improvement in her pain and canceled appointment. Patient does report over the last several weeks, increased numbness and tingling, weakness in her lower extremities, and was actually to have a CT scan arranged of her lower spine with concerns again for recurrent disease, and so she had her fall last night. She reports she had 2 falls the day before, without any injury but was very concerned. Patient has been "scared something bad was going on". Patient has been using hydrocodone 1/2-1 tab 3 times a day for generalized discomfort. She reports right now her pain is a 8 out of 10, localized in that left hip. Patient's goals are "being not in pain". Patient's underlying health conditions also include significant asthma, history of breast cancer with a diagnosis in 2010, she has had bilateral mastectomy and ovaries removed, osteoarthritic pain, long-term generalized anxiety disorder, glaucoma, and has had a 20 pound weight loss over the last several months. She is also had functional decline, now is dependent on a walker, and has poor activity tolerance prior to her fall. Social History - Living Situation Living arrangement: At home Living Situation: With spouse/s.o. Support System: Patient has lived on [facility] now for 20 years, has been living with her partner and they have been together for 34 years. They are not , nor does she have children. Ashley her partner, does have an elderly mother, that has significant health problems, and currently is an filled out ago. Both are well known in the community, and have many friends and family for support. Medications/Allergies - Medications Active Medication List: Active Medications Potassium Chloride/Sodium Chloride (Normal Saline 0.9% W/20 Meq Kcl) 1,000 mls @ 83.333 mls/hr IV .Q12H [facility] Last Admin: 04/04/18 10:16 Dose: 83.333 mls/hr Lorazepam (Ativan Inj (Vial)) 0.5 mg IVP Q4H PRN PRN Reason: Anxiety Morphine Sulfate (Morphine (Carpuject)) 2 mg IVP Q2HR PRN PRN Reason: Pain 8 to 10 Last Admin: 04/04/18 10:17 Dose: 2 mg Ondansetron HCl (Zofran Inj) 4 mg IVP Q6HR PRN PRN Reason: Nausea / Vomiting Last Admin: 04/04/18 10:17 Dose: 4 mg Ondansetron HCl (Zofran Odt) 4 mg TL Q6HR PRN PRN Reason: Nausea / Vomiting Pantoprazole Sodium (Protonix) 40 mg IVP QDAC [facility] Last Admin: 04/04/18 06:50 Dose: 40 mg Polyethylene Glycol (Miralax) 17 gm PO DAILY LAN Sodium Chloride (Normal Saline Flush 0.9%) 10 ml IVP PRN PRN PRN Reason: NEEDED PER PROVIDER ORDERS Sodium Chloride (Normal Saline Flush 0.9%) 10 ml IVP 0100,0900,1700 [facility] Albuterol Sulfate [Proair Hfa Inhaler] 1 - 2 puffs INH Q4H PRN 09/27/13 Latanoprost 1 drop EACHEYE QPM 09/27/13 Levothyroxine [Synthroid] 25 mcg PO DAILY 09/27/13 Timolol 0.5% Ophth Drops [Timoptic 0.5% Ophth Drops] 1 drop EACHEYE BID 09/27/13 Brimonidine 0.1% Ophth Drops [Alphagan P 0.1% Ophth Drops] 1 drop RIGHTEYE BID 03/15/16 Escitalopram [Lexapro] 10 mg PO DAILY PM 03/16/16 Omeprazole [PriLOSEC] 10 mg PO QDAC 01/01/17 clonazePAM [KlonoPIN] 0.25 mg PO BID PRN 01/01/17 Budesonide/Formoterol Fumarate [Symbicort 160-4.5 Mcg Inhaler] 2 puffs INH BID 08/02/17 Folic Acid 400 mcg PO DAILY 08/02/17 Ipratropium/Albuterol [Duoneb] 3 ml INH PRN PRN 08/02/17 Dexamethasone [Decadron] 2 mg PO DAILY 01/21/18 Haloperidol Oral Soln [Haldol Oral Soln] 0.25 ml PO Q6HR PRN 01/21/18 Senna [Senokot] 8.6 mg PO DAILY MDD 8 tabs 01/21/18 Zolpidem Tartrate [Ambien] 5 mg PO DAILY PRN MDD 10 mg 01/21/18 Acetaminophen 500 mg PO Q4HR PRN MDD 3000 mg 01/28/18 - Allergies Allergies/Adverse Reactions: Allergies Allergy/AdvReac Type Severity Reaction Status Date / Time hydromorphone HCl * AdvReac Unknown Verified 02/17/18 14:34 [From Dilaudid] prednisone AdvReac Hallucinati Verified 02/17/18 14:33 ons fragrances AdvReac Respiratory Uncoded 02/17/18 14:33 Review of Systems - Constitutional Constitutional: reports: Fatigue, Weakness, Poor appetite, Weight loss. denies: Fever, Chills - Eyes Eyes: reports: Vision loss - Ears, Nose & Throat Ears, Nose & Throat: reports: Dry mouth - Cardiovascular Cardiovascular: denies: Chest pain - Respiratory Respiratory: reports: SOB with exertion. denies: SOB at rest - Gastrointestinal Gastrointestinal: reports: Nausea, Poor appetite, Early satiety - Genitourinary Genitourinary: reports: Other (external female catheter) - Musculoskeletal Musculoskeletal: reports: Other (bedbound related to hip fracture) - Neurological Neurological: reports: General weakness, Memory problems - Psychiatric Psychiatric: reports: Anxiety - All Other Systems All Other Systems: reports: Reviewed and negative Physical Exam - Vital Signs Vital Signs: Vital Signs x48h Temp Pulse Resp BP Pulse Ox 04/04/18 07:37 37.1 C 97 20 134/52 H 96 04/04/18 03:23 37.5 C 94 18 144/78 H 93 - Physical Exam General Appearance: positive: Moderate distress, Anxious Eyes Bilateral: positive: Other (conjunctivae reddened/baseline with macular degeneration) ENT: positive: No signs of dehydration Neck: positive: Other (cushingnoid appearance) Cardiovascular: positive: Regular rate & rhythm Respiratory: positive: No respiratory distress, Other (on oxygen) Skin: positive: Pallor, Dryness Extremities: positive: No pedal edema Neurologic/Psychiatric: positive: Disoriented to time, Weakness, Other (anxious). negative: Sensation nml (c/o numbness and tingling in legs) Palliative Care - POLST Patient has POLST: Yes POLST Status: DNR, Selective Treatment Pain: Pain worsening, Location (left hip) Tiredness/Fatigue: Moderate (4-6) Drowsiness/Sedation: Mild (1-3) Nausea: Moderate (4-6) Depression: Moderate (4-6) Anxiety: Severe (7-10) Dyspnea: Moderate (4-6) Anorexia: Moderate (4-6) Constipation: Yes, Opoid induced, Unmanaged Performance Status: Patient currently bedbound, difficult to move or reposition secondary to pain. Patient prior had been having increased lower extremity weakness, difficulty with balance, more sedentary, would put her at a PPS of closer to 50% prior to fall - Palliative Care Discussion: [address] Sandoval regarding weighing benefits of burdens of going forward with hip replacement. Patient also scheduled for exam regarding thoracic/lumbar spine secondary concern for metastatic disease/cord compression. Patient able to participate, has received pain medicine, information needs to be reported, but Ashley HORVATH and SO present for conversation. Concern expressed regarding patient's underlying disease process, patient is always perceived herself "as indolent", but now has had recurrent metastatic brain metastases, and presenting with symptoms of possibly bone metastases, tumor or cord compression. In the discussion was included whether given patient's most likely limited time and life expectancy whether benefit/burden of going forward with treatment including rehab was best way to spend her limited time she had left. Patient requested follow-up with Dr. Dillan Leblanc who is her oncologist to weigh in, regarding patient's prognosis specific to her lung cancer given all the changes. She feels this would influence her decision whether to proceed with surgery or to focus on transitioning home with hospice. Agreed to call and follow up. 1015 Met with patient, Ashley soto, Leta WINCHESTER, hospitalist with information received from Dr. Leblanc. Consult with Dr. Leblanc regarding patient's history and long-standing lung cancer diagnosis. Reports it is multifactorial as far as her decline, reports with her increasing creatinine, functional status decline, weight loss, now with recurrent brain metastases and follow-up treatment, as well as suspected metastatic bone disease/cord compression patient does have a limited life expectancy. We discussed in the context of patient's decision making, regarding previous understanding that she had 1-2 years, given up-to-date with metastatic disease status would be optimistic to give her 3-6 months. He would be supportive of transition to hospice, particular if patient is weighing her decision-making regarding long-term prognosis. Focus c onversation given the context of limited prognosis, if she were to choose her focus on her goals, where she would like to spend her last days she would like to return home. Counseling provided regarding hospice and hospice support, transitioning home with equipment, nursing, bathing assistance, as well as medication management and 24/7 care. Goals would be to focus on comfort, not return to the hospital, And focus on allowing natural . Addressed questions regarding hydration, support, with dignity. Patient would not be a candidate for DWD given patient will most likely be medicated secondary to her acute pain, and expected fairly rapid decline. In further discussion, whether t o move forward with scan to confirm or explore cord compression/pathological fracture/bone metastases, came to the conclusion that it would not change the outcome as far as her treatment plan. Goals at this point in time have been defined as focus on adequate pain management, managing Dorothy's anxiety, and transitioning for end-of-life care at home with hospice. 1330 Met with patient alone, patient does express concerns regarding the burden and concern for her partner Ashley. Patient does have high anxiety regarding dying in the dying process. Her goals are to be as pain-free as possible, she reports she "likes her medications". Time spent time processing patient's feelings of grief and loss, this was not how she had envisioned her end of life as she had wanted to have more control. We did discuss in the context of her belief system which is Sikhism, regarding relaxing into this process with mindfulness and observation. Reassured would provide Ashley support, as well as the role of hospice in caring for her at home. Results - Lab Results Lab results reviewed: Yes Fish Bones: 04/04/18 01:54 04/04/18 01:54 Lab and Imaging Results: Lab Results x24hrs 04/04/18 04/04/18 04/04/18 Range/Units 07:50 01:54 01:54 WBC (4.8-10.8) x10^3/uL RBC (4.20-5.40) 10^6/uL Hgb (12.0-16.0) g/dL Hct (37.0-47.0) % MCV (81.0-99.0) fL MCH (27.0-31.0) pg MCHC (32.0-36.0) g/dL RDW (12.0-15.0) % Plt Count (130-450) 10^3/uL MPV (7.9-10.8) fL Neut # (Auto) (1.5-6.6) 10^3/uL Lymph # (Auto) (1.5-3.5) 10^3/uL [place] # (Auto) (0.0-1.0) 10^3/uL Eos # (Auto) (0.0-0.7) 10^3/uL Baso # (Auto) (0.0-0.1) 10^3/uL Absolute Nucleated RBC x10^3/uL Nucleated RBC % /100WBC PT 11.8 (9.9-12.6) secs INR 1.0 (0.8-1.2) APTT 29.3 (24.9-33.3) secs Sodium 136 (135-145) mmol/L Potassium 3.5 (3.5-5.0) mmol/L Chloride 105 (101-111) mmol/L Carbon Dioxide 24 (21-32) mmol/L Anion Gap 7.0 (6-13) BUN 20 (6-20) mg/dL Creatinine 1.2 H (0.4-1.0) mg/dL Estimated GFR (MDRD) 43 L (>89) Glucose 97 (70-100) mg/dL Calcium 8.5 (8.5-10.3) mg/dL Phosphorus 2.9 (2.5-4.6) mg/dL Magnesium 2.4 (1.7-2.8) mg/dL Blood Type A POSITIVE Antibody Screen NEGATIVE 04/04/18 Range/Units 01:54 WBC 7.8 (4.8-10.8) x10^3/uL RBC 3.51 L (4.20-5.40) 10^6/uL Hgb 11.4 L (12.0-16.0) g/dL Hct 34.7 L (37.0-47.0) % MCV 98.9 (81.0-99.0) fL MCH 32.4 H (27.0-31.0) pg MCHC 32.8 (32.0-36.0) g/dL RDW 15.8 H (12.0-15.0) % Plt Count 206 (130-450) 10^3/uL MPV 8.2 (7.9-10.8) fL Neut # (Auto) 5.7 (1.5-6.6) 10^3/uL Lymph # (Auto) 1.0 L (1.5-3.5) 10^3/uL [place] # (Auto) 0.8 (0.0-1.0) 10^3/uL Eos # (Auto) 0.4 (0.0-0.7) 10^3/uL Baso # (Auto) 0.0 (0.0-0.1) 10^3/uL Absolute Nucleated RBC 0.00 x10^3/uL Nucleated RBC % 0.1 /100WBC PT (9.9-12.6) secs INR (0.8-1.2) APTT (24.9-33.3) secs Sodium (135-145) mmol/L Potassium (3.5-5.0) mmol/L Chloride (101-111) mmol/L Carbon Dioxide (21-32) mmol/L Anion Gap (6-13) BUN (6-20) mg/dL Creatinine (0.4-1.0) mg/dL Estimated GFR (MDRD) (>89) Glucose (70-100) mg/dL Calcium (8.5-10.3) mg/dL Phosphorus (2.5-4.6) mg/dL Magnesium (1.7-2.8) mg/dL Blood Type Antibody Screen Impression and Recommendations - Palliative Care Impression: This is a 77-year-old woman with known stage IV lung cancer with brain metastases status post gamma knife surgery, now presenting with presumed pathologic fracture to her left hip, as well as concerns for spinal metastases/cord compression. Given patient's poor prognosis, underlying comorbidities, and patient's goals of care, will transition to hospice on discharge. Recommendations/Counseling Done: 1. Acute pain secondary pathologic fracture. Recommendations include aggressive pain management of 2-4 mg of morphine IV for 24 hours or less, and transition to fentanyl tomorrow a.m. Reminder of equianalgesia would be Fentanyl 50 mcg = 30 mg IV morphine, suspect she will fall in this ballpark. It will take 12-17 hours to be therapeutic. Would initiate this point in time also 10 mg dosing of (morphine solution 20 mg/ml) every 2 hours as needed breakthrough pain to trial effectiveness and tolerance prior to discharge. Review on Saturday if need to add another fentanyl patch based on use. 2. Generalized anxiety disorder. Patient long-term on clonazepam, CBD, using meditation and psychosocial support. Would recommend transitioning to Lorazepam as a short acting benzodiazepine, recognizing patient most likely will need this on a regular basis, would titrate to effect. Patient does well with classical music, she is introverted and gets anxious with too much stimulation. 3. Advanced care planning. Multiple conversations and meetings regarding patient's goals of care. Decision was made to transition to hospice, order sent in contact made with hospice spiritual care coordinator for discharge on Saturday. Discussed equipment needs and support to ensure smooth transition. 1) Patient will need horvath catheter place for management of care at home. 2) RX will be needed PRIOR to discharge to have in home, would recommend RX for Saturday so if any problems obtaining can address. Morphine sulfate 20 mg/ml; 5- 10 mg (or higher depending on hospital usage) every two hours #30 mls. Lorazepam 2 mg/ml; 0.25-0.5 ml every 4 four hours for anxiety. # 30 mls. 3) Hospice to obtain low air loss mattress secondary to difficult with repositio gonzález; oxygen; over the bed table. Contact information provided for equipment delivery. ADDENDUM: 1615 Long conversation with significant other Ashley in response to concern about revisiting orthopedic procedure/surgery. Ashley shared just her profound sadness about the way Dorothy's EOL process was going to play out, not what they expected and not ever being able to walk again. Shared with Ashley, given patient's high anxiety, did not further explain prognosis most likely days to weeks without the surgery, and the 3-[address] Leblanc shared was optimistic at best and based on if she did not suffer the consequences of a pathological fx. Discussed further intervention would delay and most likely not be able to meet their goals to be at home for her EOL. After conversation and clarification of goals, want to proceed with hospice transition. Ashley has found help to hire, and has family and friend support. Time Spent: 90 minutes with greater than 50% of this done in counseling coordination of care follow-up with hospitalist, oncologist, orthopedist and hospice team.
[2018-04-04] MEDS: POLYETHYLENE GLYCOL 3350 17 GM PACKET PO SCH (11:43)
[2018-04-04] MEDS: SODIUM CHLORIDE FLUSH 0.9% 10 ML SYRINGE IVP SCH ×2 (11:43→15:36)
[2018-04-04] MEDS: SODIUM CHLORIDE FLUSH 0.9% 10 ML SYRINGE IVP PRN ×2 (12:17→14:41)
[2018-04-04] MEDS ORDERED: PROCHLORPERAZINE 25 MG SUPP PR PRN (13:34)
[2018-04-04] MEDS ORDERED: CARBOXYMETHYLCELLULOSE OPHTH DROPS EACHEYE PRN (13:34)
[2018-04-04] MEDS ORDERED: HALOPERIDOL 1 MG TABLET PO PRN (13:34)
[2018-04-04] MEDS ORDERED: LACTULOSE 10 GM /15 ML UDC PO PRN (13:34)
[2018-04-04] MEDS ORDERED: ATROPINE 1% OPHTH DROPS 2 ML SL PRN (13:34)
[2018-04-04] MEDS ORDERED: METHYLNALTREXONE 12 MG/0.6 ML VIAL SUBQ PRN (13:34)
[2018-04-04] MEDS ORDERED: PROCHLORPERAZINE 5 MG TABLET PO PRN (14:48)
[2018-04-04] MEDS ORDERED: PROMETHAZINE INJ 25 MG in SODIUM CHLORIDE 0.9% 50 ML IV PRN (14:50)
[2018-04-04] MEDS ORDERED: ZOLPIDEM 5 MG TABLET PO PRN (15:33)
[2018-04-04] MEDS: PROCHLORPERAZINE 10 MG/2 ML VIAL IVP PRN ×2 (15:36→20:31)
[2018-04-04] MEDS: LORazepam 2 MG/ML VIAL IVP PRN (15:44)
[2018-04-04] MEDS: LEVOTHYROXINE 25 MCG TABLET PO SCH (19:42)
[2018-04-04] MEDS: TIMOLOL 0.5% OPHTH DROPS EACHEYE SCH (19:43)
[2018-04-05] MEDS: MORPHINE 2 MG/ML CARPUJECT IVP PRN ×4 (03:27→18:56)
[2018-04-05] MEDS: SODIUM CHLORIDE FLUSH 0.9% 10 ML SYRINGE IVP SCH ×3 (03:27→15:51)
[2018-04-05] MEDS ORDERED: NON FORMULARY MED (Albuterol Sulfate [Proair Hfa Inhaler] 2 PUFFS) INH PRN (05:59)
[2018-04-05] MEDS: LORazepam 2 MG/ML VIAL IVP PRN ×3 (06:19→18:56)
[2018-04-05] MEDS: PANTOPRAZOLE 40 MG VIAL IVP SCH (06:19)
[2018-04-05] MEDS: SODIUM CHLORIDE FLUSH 0.9% 10 ML SYRINGE IVP PRN (06:20)
[2018-04-05] MEDS ORDERED: ALBUTEROL NEB 2.5 MG/3 ML INH PRN (06:28)
[2018-04-05] MEDS: NS W/20 MEQ KCL 1,000 ML IV SCH ×2 (08:13→18:57)
[2018-04-05] MEDS: TIMOLOL 0.5% OPHTH DROPS EACHEYE SCH ×2 (08:17→18:59)
[2018-04-05] MEDS: POLYETHYLENE GLYCOL 3350 17 GM PACKET PO SCH (08:18)
--- NOTE | 2018-04-05 10:30 | PROVIDER PROGRESS NOTE ---
Subjective - Prog Note Date Prog Note Date: 04/05/18 Prog Note Time: 10:29 - Subjective Pt reports feeling: No change Subjective: Dorothy is happily visiting with one of her friends at the bed side. She denies any new symptoms including no complaints of chest pain, chest pressure, a new cough, sore throat, headaches, nausea, vomiting, diarrhea, a rash, bleeding or dizziness. Current Medications - Current Medications Current Medications: Active Medications: Albuterol () 2.5 mg INH RTQ4H PRN Albuterol Sulfate (Albuterol Sulf) 8.6 mg INH Q4H PRN Atropine Sulfate (Isopto Atropine 1% Ophth Drops) 1 - 4 drops SL Q2H PRN Carboxymethylcellulose (Refresh 1% Ophth Drops) 1 drops EACHEYE QID PRN Fentanyl (Duragesic) 1 patch TOP Q3D LAN Haloperidol (Haldol) 1 mg PO Q6H PRN Potassium Chloride/Sodium Chloride (Normal Saline 0.9% W/20 Meq Kcl) 1,000 mls @ 83.333 mls/hr IV .Q12H LAN Promethazine HCl 25 mg/ Sodium (Chloride) 51 mls @ 100 mls/hr IV Q6H PRN Lactulose (Enulose) 10 gm PO DAILY PRN Levothyroxine Sodium (Synthroid) 25 mcg PO QPM LAN Lorazepam (Ativan Inj (Vial)) 0.5 mg IVP Q4H PRN Methylnaltrexone [place] (Relistor) 8 mg SUBQ Q48H PRN Morphine Sulfate (Morphine (Carpuject)) 4 mg IVP Q2HR PRN Pantoprazole Sodium (Protonix) 40 mg IVP QDAC LAN Polyethylene Glycol (Miralax) 17 gm PO DAILY LAN Prochlorperazine Edisylate (Compazine Inj) 10 mg IVP Q4HR PRN Prochlorperazine Maleate (Compazine Supp) 25 mg [place] TID PRN Prochlorperazine Maleate (Compazine) 5 mg PO Q6H PRN Timolol Maleate (Timoptic 0.5% Ophth Drops) 1 drops EACHEYE BID LAN Zolpidem Tartrate (Ambien) 10 mg PO QPM PRN HOME meds: Albuterol Sulfate [Proair Hfa Inhaler] 1 - 2 puffs INH Q4H PRN 06/29/14 Levothyroxine [Synthroid] 25 mcg PO QPM 09/27/13 Timolol 0.5% Ophth Drops [Timoptic 0.5% Ophth Drops] 1 drop EACHEYE BID 09/27/13 Escitalopram [Lexapro] 10 mg PO QPM 03/16/16 clonazePAM [KlonoPIN] 0.25 - 0.5 mg PO BID PRN 01/01/17 Senna [Senokot] 8.6 mg PO DAILY 01/21/18 Zolpidem Tartrate [Ambien] 5 - 10 mg PO QPM PRN MDD 10 mg 01/21/18 Acetaminophen 500 mg PO Q4HR PRN MDD 3000 mg 01/28/18 Prochlorperazine [Compazine] 5 - 10 mg PO DAILY PRN 04/04/18 Objective - Vital Signs/Intake & Output Reviewed Vital Signs: Yes Intake & Output: Intake & Output 04/02/18 04/03/18 04/04/18 04/05/18 23:59 23:59 23:59 23:59 Intake Total 2306.733 3718.996 Output Total 1400 Balance 674.859 1002.996 - Objective General Appearance: positive: No acute distress, Alert Eyes Bilateral: positive: PERRL Eyes: OU Lid inflammation, OU Other (bilateral eye redness) ENT: positive: Pharynx nml, No signs of dehydration Neck: positive: Thyroid nml, No JVD, Trachea midline Respiratory: positive: Chest non-tender, No respiratory distress, Rhonchi (low lobe crackles, bilaterally) Cardiovascular: positive: Regular rate & rhythm, No gallop, Systolic murmur Peripheral Pulses: 1+ Radial (R), 1+ Radial (L) Abdomen: positive: Non-tender, Nml bowel sounds Back: positive: Nml inspection Skin: positive: Color nml, No rash, Warm, Dry Extremities: positive: No pedal edema, Joint swelling (left hip with usual post- traumatic fracture. Intact skin, ice pack in place.) Neurologic/Psychiatric: positive: Oriented x3, CN's nml (2-12), Motor nml, Sensation nml, Mood/affect nml, Weakness, Depressed mood/affect Reflexes: Bicep (R): 3+, Bicep (L): 3+, Ankle (R): 2+, Ankle (L): 2+ - Lab Results Fish Bones: 04/04/18 01:54 04/04/18 01:54 ABX Reporting Has patient been on IV antibiotics over the past 48 hours?: No Sepsis Event Note (H) - Evaluation Current Stage of Sepsis: Ruled out Assessment/Plan - Problem List (1) Pathological fracture of hip Impression: The patient had an accidental fall at home and imaging confirmed Qualifiers: Pathology associated with fracture: neoplastic disease Encounter type: initial encounter Laterality: left Qualified Code(s): M84.552A - Pathological fracture in neoplastic disease, left femur, initial encounter for fracture (2) Anxiety and depression Impression: The patient has longstanding anxiety disorder and is prescribed Lexapro and Klonopin at home. She is being treated with Lorazepam while here which will be prescribed in preparation of home with Hospice. Plan: Continue to monitor well being, continue IV/PO lorazepam. (3) CKD (chronic kidney disease) stage 3, GFR 30-59 ml/min Impression: The patient has known kidney dysfunction and yesterday her creatinine was 1.2 with a GFR of 48. Given her comfort care status, no further labs have been ordered. She continues on gentle IV fluids. Plan: Continue gentle fluids, maintain horvath cath. (4) Metastatic adenocarcinoma Impression: The patient had primary lung cancer that metastasized to her brain. The thought is that she may have mets in her spine, pelvis, and hips that have led to this injury. Upon admission, there was discussion about next steps and a spinal CT was recommended, but after Hospice route was chosen, no further testing was necessary. Plan: Continue comfort cares. (5) Brain metastasis Impression: The patient has undergone several gamma knife procedures as per her oncologist. Her primary oncologist, Dr. Leblanc, was contacted by Misty Mcneill as an official signing off, who predicted ~ 12 weeks or less to expect to live. This was not taking into consideration of her current left hip fracture and her new bed bound status. Plan: Continue comfort cares. (6) COPD with asthma Impression: The patient states that she uses a rescue inhaler and spiriva at home. Today she requests that she has her rescue inhaler at the bedside, which I will add to the albuterol order. She continues on oxygen, which will be sent with her upon discharge. Plan: Continue supplemental oxygen, allow patient's own inhaler at the bedside. (7) End of life care Impression: The patient was previously seen by Palliative care out patient given her history of lung cancer with brain mets. During this admission, Misty Mcneill has been consulted and graciously set up Hospice care. The hospital bed is being delivered to the house today in preparation for discharge tomorrow 04/06/2018 under the care of Dr. Vasquez. Her pain has been well controlled and she will be transitioned to a Fentanyl patch at 25 mcg based on her 24 totals of IV morphine. Plan: Continue comfort cares, maintain DNR status, plan for home with Hospice on Saturday04/06/2018.
[2018-04-05] MEDS ORDERED: fentaNYL 25 MCG PATCH TOP SCH (13:00)
[2018-04-05] MEDS: SENNA 8.6 MG TABLET PO SCH (14:43)
[2018-04-05] MEDS: PROCHLORPERAZINE 10 MG/2 ML VIAL IVP PRN (15:51)
[2018-04-05] MEDS: LEVOTHYROXINE 25 MCG TABLET PO SCH (19:04)
[2018-04-06] MEDS: LORazepam 2 MG/ML VIAL IVP PRN ×4 (00:30→17:49)
[2018-04-06] MEDS: MORPHINE 2 MG/ML CARPUJECT IVP PRN ×3 (00:32→17:17)
[2018-04-06] MEDS: SODIUM CHLORIDE FLUSH 0.9% 10 ML SYRINGE IVP SCH ×3 (05:28→17:06)
[2018-04-06] MEDS: NS W/20 MEQ KCL 1,000 ML IV SCH (05:58)
[2018-04-06] MEDS: PANTOPRAZOLE 40 MG VIAL IVP SCH (06:00)
--- NOTE | 2018-04-06 07:58 | Discharge Plan ---
Discharge Plan Disposition: 50 Hospice/Home DC/Xfer Condition: Stable Prescriptions: LORazepam [Ativan] 0.5 mg PO Q6H #12 tablet Morphine Sulfate [Morphine Sulf Oral (Roxanol)] 5 mg PO Q1H PRN #15 ml PRN Reason: Pain/Dyspnea Diet: Regular Activity Restrictions: Bedrest is advised. Shower Restrictions: Yes Driving Restrictions: Yes Additional Instructions or Follow Up instructions: You were admitted after a fall resulting in a left femur fracture that after discussion was not repaired. You will transitioned gently with an ambulance ride to your home under the care of Hospice. I have provided you with short courses of medications for when you arrive at home. I have asked Anesthesia to do a nerve block to provide local pain relief for bathing, and the ambulance ride. Thank you for allowing us to care for you. Follow-Up Care: Hospice No Smoking: If you smoke, Please STOP! Call for help.
--- NOTE | 2018-04-06 08:07 | DISCHARGE SUMMARY ---
Discharge Summary Discharge Date: 04/06/18 Discharging Provider: RANULFO Tafoya Code Status: Do Not Attempt Resuscitation Condition at Discharge: Stable Discharge Disposition: 50 Hospice/Home DC/Xfer - ALLERGIES Allergies/Adverse Reactions: Allergies Allergy/AdvReac Type Severity Reaction Status Date / Time hydromorphone HCl * AdvReac Unknown Verified 02/17/18 14:34 [From Dilaudid] prednisone AdvReac Hallucinati Verified 02/17/18 14:33 ons fragrances AdvReac Respiratory Uncoded 02/17/18 14:33 - MEDICATIONS Home Medications: Ambulatory Orders Medication Instructions Recorded Confirmed Albuterol Sulfate [Proair Hfa 1 - 2 puffs INH Q4H PRN 09/27/13 04/04/18 Inhaler] Levothyroxine [Synthroid] 25 mcg PO QPM 09/27/13 04/04/18 Timolol 0.5% Ophth Drops [Timoptic 1 drop EACHEYE BID 09/27/13 04/04/18 0.5% Ophth Drops] Senna [Senokot] 8.6 mg PO DAILY 01/21/18 04/04/18 Zolpidem Tartrate [Ambien] 5 - 10 mg PO QPM PRN MDD 10 mg 01/21/18 04/04/18 Acetaminophen 500 mg PO Q4HR PRN MDD 3000 mg 01/28/18 04/04/18 Famotidine 20 mg PO DAILY #30 tablet 02/17/18 04/04/18 Prochlorperazine [Compazine] 5 - 10 mg PO DAILY PRN 04/04/18 04/04/18 LORazepam [Ativan] 0.5 mg PO Q6H #12 tablet 04/06/18 Morphine Sulfate [Morphine Sulf 5 mg PO Q1H PRN #15 ml 04/06/18 Oral (Roxanol)] - PHYSICAL EXAM AT DISCHARGE General Appearance: positive: No acute distress, Alert Eyes Bilateral: positive: PERRL - LABS Result Diagrams: 04/04/18 01:54 04/04/18 01:54 - SEPSIS Current Stage of Sepsis: Ruled out
[2018-04-06] MEDS ORDERED: SALINE ENEMA 133 ML BOTTLE RC PRN (08:33)
[2018-04-06] MEDS ORDERED: MAGNESIUM CITRATE 296 ML BOTTLE PO SCH (08:33)
[2018-04-06] MEDS ORDERED: fentaNYL 12 MCG PATCH TOP SCH (09:00)
[2018-04-06] MEDS ORDERED: ALBUTEROL SULFATE MDI INH PRN (09:00)
[2018-04-06] MEDS: SENNA 8.6 MG TABLET PO SCH (09:07)
[2018-04-06] MEDS: POLYETHYLENE GLYCOL 3350 17 GM PACKET PO SCH (09:07)
[2018-04-06] MEDS: TIMOLOL 0.5% OPHTH DROPS EACHEYE SCH ×2 (09:07→17:55)
--- NOTE | 2018-04-06 11:07 | PROVIDER PROGRESS NOTE ---
Subjective - Prog Note Date Prog Note Date: 04/06/18 Prog Note Time: 11:07 - Subjective Pt reports feeling: Improved Subjective: Dorothy complains of slight disorientation and claims that the new pain patch may be the culprit. She also states that she is getting worried about her bowels not moving. She denies any new symptoms including chest pain, nausea, vomiting, a rash, dizziness, or a new cough. Current Medications - Current Medications Current Medications: Active Medications: Albuterol () 2.5 mg INH RTQ4H PRN Atropine Sulfate (Isopto Atropine 1% Ophth Drops) 1 - 4 drops SL Q2H PRN Carboxymethylcellulose (Refresh 1% Ophth Drops) 1 drops EACHEYE QID PRN Fentanyl (Duragesic) 12 mcg 1 patch TOP Q72H LAN Haloperidol (Haldol) 1 mg PO Q6H PRN Promethazine HCl 25 mg/ Sodium (Chloride) 51 mls @ 100 mls/hr IV Q6H PRN Lactulose (Enulose) 10 gm PO DAILY PRN Levothyroxine Sodium (Synthroid) 25 mcg PO QPM LAN Lorazepam (Ativan Inj (Vial)) 0.5 mg IVP Q4H PRN Methylnaltrexone [place] (Relistor) 8 mg SUBQ Q48H PRN Morphine Sulfate (Morphine (Carpuject)) 2 mg IVP Q2HR PRN Pantoprazole Sodium (Protonix) 40 mg IVP QDAC LAN Albuterol Sulfate (Mdi) 2 each INH Q4H PRN Polyethylene Glycol (Miralax) 17 gm PO DAILY LAN Prochlorperazine Edisylate (Compazine Inj) 10 mg IVP Q4HR PRN Prochlorperazine Maleate (Compazine Supp) 25 mg VA TID PRN Prochlorperazine Maleate (Compazine) 5 mg PO Q6H PRN Senna (Senokot) 8.6 - 17.2 mg PO DAILY LAN Sodium Biphosphate/Sodium Phosphate (Fleets Saline Enema) 133 ml RC DAILY PRN Timolol Maleate (Timoptic 0.5% Ophth Drops) 1 drops EACHEYE BID LAN Zolpidem Tartrate (Ambien) 10 mg PO QPM PRN HOME meds: Albuterol Sulfate [Proair Hfa Inhaler] 1 - 2 puffs INH Q4H PRN 09/27/13 Levothyroxine [Synthroid] 25 mcg PO QPM 09/27/13 Timolol 0.5% Ophth Drops [Timoptic 0.5% Ophth Drops] 1 drop EACHEYE BID 09/27/13 Senna [Senokot] 8.6 mg PO DAILY 01/21/18 Zolpidem Tartrate [Ambien] 5 - 10 mg PO QPM PRN MDD 10 mg 01/21/18 Acetaminophen 500 mg PO Q4HR PRN MDD 3000 mg 01/28/18 Prochlorperazine [Compazine] 5 - 10 mg PO DAILY PRN 04/04/18 Objective - Vital Signs/Intake & Output Reviewed Vital Signs: Yes Intake & Output: Intake & Output 04/03/18 04/04/18 04/05/18 04/06/18 23:59 23:59 23:59 23:59 Intake Total 2934.008 7391.437 1138.052 Output Total 1400 1600 550 Balance 167.564 4527.437 588.052 - Objective General Appearance: positive: Alert, Mild distress, Lethargic Eyes Bilateral: positive: PERRL Eyes: OU Other (redness bilaterally-ongoing since admission.) ENT: positive: Dry mucous membranes Neck: positive: Thyroid nml, No JVD Respiratory: positive: Chest non-tender, No respiratory distress, Other (coarse crackles, bilaterally) Cardiovascular: positive: Regular rate & rhythm, No gallop, Systolic murmur Peripheral Pulses: 1+ Radial (R), 1+ Radial (L) Abdomen: positive: Non-tender, Nml bowel sounds, Other (firm, rounded) Back: positive: Nml inspection Skin: positive: No rash, Warm, Dry Extremities: positive: Pedal edema, Joint swelling (left hip swelling) Neurologic/Psychiatric: positive: Oriented x3, CN's nml (2-12), Weakness, Sensory loss, Slurred/abnml speech, Depressed mood/affect, Other (today more sluggish possibly due to medications) Reflexes: Bicep (R): 2+, Bicep (L): 2+ - Lab Results Fish Bones: 04/04/18 01:54 04/04/18 01:54 Other Labs: Lab Results x24hrs 04/04/18 Range/Units 01:54 Blood Type Recheck A POSITIVE ABX Reporting Has patient been on IV antibiotics over the past 48 hours?: No Assessment/Plan - Problem List (1) Pathological fracture of hip Impression: The patient had an accidental fall at home and imaging confirmed a left femur fracture. After a long discussion with the orthopedic surgeon, Palliative care, the patient and her POA opt for no surgical intervention. The patient's pain is being managed with the initiation of a fentanyl patch at a moderate dose of 25 mcg yesterday, that has been reduced to 12 mcg today after the patient complained of feeling a bit confused. She continues on morphine IV and/or PO, and lorazepam. Plan: Continue bedrest, plan for home with hospice. Qualifiers: Pathology associated with fracture: neoplastic disease Encounter type: initial encounter Laterality: left Qualified Code(s): M84.552A - Pathologi kristen fracture in neoplastic disease, left femur, initial encounter for fracture (2) End of life care Impression: As per Misty Mcneill and confirmed with the patient's primary caregiver; "Ashley has found help to hire, and has family and friend support". The patient's pain has been controlled using a fentanyl patch that was first prescribed at 25 mcgs today, now 12 mcgs based on the patient's complaints of "being too out of it". She is also getting IV morphine, PO morphine, and lorazepam for pain and anxiety. Anesthesia completed a local nerve block to aide in the ease of the ambulance ride, this morning's ADLs and overall discomfort from her acute left femur fracture. Paper prescriptions have been provided to Ashley for early prescriptions to have on hand for the patient's arrival today. * After all arrangements have been made, the patient's S.O/POA, Ashley refused home with Hospice since the equipment that was delivered was too difficult to use and the air mattress delivered was too noisy. She also claimed that her pain was not managed, but the patient did not complain of pain on exam. After the anesthetic block, the patient tolerated a full bed bath with repositioning. Plan: Anticipate discharge tommorrow- 04/07/18. (3) Anxiety and depression Impression: The patient has longstanding anxiety disorder and is prescribed Lexapro and Klonopin at home. She is being treated with Lorazepam while here which has been prescribed in preparation of home with Hospice. Plan: Continue to monitor well being, continue IV/PO lorazepam. (4) CKD (chronic kidney disease) stage 3, GFR 30-59 ml/min Impression: The patient has known kidney dysfunction and yesterday her creatinine was 1.2 with a GFR of 48. Given her comfort care status, no further labs have been ordered. She continues on gentle IV fluids. Plan: Continue gentle fluids, maintain horvath cath. (5) Metastatic adenocarcinoma Impression: The patient had primary lung cancer that metastasized to her brain. The thought is that she may have mets in her spine, pelvis, and hips that have led to this injury. Upon admission, there was discussion about next steps and a spinal CT was recommended, but after Hospice route was chosen, no further testing was necessary. Plan: Continue comfort cares. (6) Brain metastasis Impression: The patient has undergone several gamma knife procedures as per her oncologist. Her primary oncologist, Dr. Leblanc, was contacted by Misty Mcneill as an official signing off, who predicted ~ 12 weeks or less to expect to live. This was not taking into consideration of her current left hip fracture and her new bed bound status. Plan: Continue comfort cares. (7) COPD with asthma Impression: The patient states that she uses a rescue inhaler and spiriva at home. She continues on oxygen, which has been delivered to her home already for her return home with Hospice. Plan: Continue supplemental oxygen, continue rescue inhaler or nebs. (8) Constipation Impression: The patient has not moved her bowels since before admission, and has been on narcotics for her acute fracture. She was previously ambulatory, but is now bed bound. She has waves of nausea, likely related to her ongoing constipation. Her appetite is fair, but is not able to consume as much as usual due to her lack of bowel movements. She has been taking daily Mirralax, senna, and today I have added Mag citrate. She has an enema that I have encouraged since this is not resolved and since having anesthesia place the block this morning. Plan: Offer enema, give Relistor injections, and monitor for results. Qualifiers: Constipation type: slow transit constipation Qualified Code(s): K59.01 - Slow transit constipation
[2018-04-06] MEDS: PROCHLORPERAZINE 10 MG/2 ML VIAL IVP PRN (12:08)
[2018-04-06] MEDS: SODIUM CHLORIDE FLUSH 0.9% 10 ML SYRINGE IVP PRN ×4 (12:08→17:15)
--- NOTE | 2018-04-06 12:53 | PROVIDER PROGRESS NOTE ---
Subjective - Prog Note Date Prog Note Date: 04/06/18 Prog Note Time: 12:50 - Subjective Pt reports feeling: Improved (Less pain in bed, eating lunch) Objective - Vital Signs/Intake & Output Intake & Output: Intake & Output 04/03/18 04/04/18 04/05/18 04/06/18 23:59 23:59 23:59 23:59 Intake Total 3039.328 2417.437 1589.052 Output Total 1400 1600 825 Balance 306.114 9250.437 764.052 - Lab Results Fish Bones: 04/04/18 01:54 04/04/18 01:54 Other Labs: Lab Results x24hrs 04/04/18 Range/Units 01:54 Blood Type Recheck A POSITIVE - Other Results/Comments Other Results/Comments: Sitting up in bed. N/V ok distally Sepsis Event Note (H) - Evaluation Current Stage of Sepsis: Ruled out Assessment/Plan - Problem List (1) Hip fracture Impression: stable PLAN: Ansered questions. She is still opting for hospice and non operative treatment for her left pathologic hip fracture. Home Saturday. Follow up only as needed. Qualifiers: Encounter type: initial encounter Fracture type: closed Laterality: left Qualified Code(s): S72.002A - Fracture of unspecified part of neck of left femur, initial encounter for closed fracture
[2018-04-06] MEDS: MORPHINE SOL 10 MG/0.5 ML SYRINGE PO PRN (13:26)
[2018-04-06] MEDS ORDERED: fentaNYL 25 MCG PATCH TOP SCH (17:00)
[2018-04-06] MEDS: LEVOTHYROXINE 25 MCG TABLET PO SCH ×2 (17:53→19:43)
[2018-04-07] MEDS: SODIUM CHLORIDE FLUSH 0.9% 10 ML SYRINGE IVP SCH ×2 (01:06→08:02)
[2018-04-07] MEDS: LORazepam 2 MG/ML VIAL IVP PRN ×2 (01:06→06:15)
[2018-04-07] MEDS: SODIUM CHLORIDE FLUSH 0.9% 10 ML SYRINGE IVP PRN ×4 (01:06→06:28)
[2018-04-07] MEDS: MORPHINE 2 MG/ML CARPUJECT IVP PRN ×3 (01:06→08:56)
[2018-04-07] MEDS: PANTOPRAZOLE 40 MG VIAL IVP SCH (06:15)
[2018-04-07] MEDS: MORPHINE SOL 10 MG/0.5 ML SYRINGE PO PRN ×5 (08:02→15:36)
[2018-04-07] MEDS: TIMOLOL 0.5% OPHTH DROPS EACHEYE SCH (08:02)
[2018-04-07] MEDS: POLYETHYLENE GLYCOL 3350 17 GM PACKET PO SCH (08:02)
[2018-04-07] MEDS: SENNA 8.6 MG TABLET PO SCH (08:02)
--- NOTE | 2018-04-07 10:58 | ADVANCE CARE PLANNING NOTE ---
Advance Care Planning - Date/Time Date: 04/07/18 Time: 10:55 - Purpose of encounter Text: advance care for pt - Parties in attendance Parties in attendance: pt, pt's JORDAN, Ashley, and - Decisional capacity Decisional capacity of: pt is alert and oriented to make her own decision. DPOA is at pt's bedside to help pt - Subjective/Patient's story Subjective/Patient's story: pt's DPOA concern pt has no appreciate hospital bed at her home, she wish to change to a electric management of hospital bed which was delivered to her home before pt can be discharged. DPOA also concern she did not have enough pain medication for pt to go to home at this moment. DPOA also concern pt did not have enough pain control as inpt. I explain pt and DPOA, as nurse explained to her at this morning, pt had couple hours sleeping last night. In pt's sleep, nurse did not wake up pt and did not give pt pain medications, because also pt did not ask pain medications PRN at that time. We will prescribe pain medication for pt d/c to home. Will contact palliative care/ hospice care team for appreciate equipment to be delivered to pt home - Objective/Medical story Objective/Medical Story: pt has hx of indolent lung Adenocarcinoma who has received multiple systemic and immunotherapies. She has had a prior left lower lobe lobectomy, known right lung nodular lesions, status post of treated with gamma knife radiosurgery over several years for metastatic brain,history of breast cancer with a diagnosis in 2010, she has had bilateral mastectomy and ovaries removed, pathological bone fracture, acute on chronic pain secondary to bone fracture and metastatic tumor. - Goals of Care Goals of care determinations: advance care and hospice care for pt, pain control. - Plan Plan: hospice care at home, and d/c to home today - Code Status Code Status: Do Not Attempt Resuscitation - Time Spent on Advance Care Planning Time spent on advance care plannin
--- NOTE | 2018-04-07 13:23 | Discharge Plan ---
Discharge Plan Disposition: 50 Hospice/Home DC/Xfer Condition: Serious Prescriptions: LORazepam [Ativan] 0.5 mg PO Q6H #12 tablet Morphine Sulfate [Morphine Sulf Oral (Roxanol)] 5 mg PO Q1H PRN #15 ml PRN Reason: Pain/Dyspnea Diet: Regular Additional Instructions or Follow Up instructions: You will transition with an ambulance ride to your home under the care of Hospice. Please followup hospice care when you are arrival to your home. No Smoking: If you smoke, Please STOP! Call for help. Follow-up with: Vernon Vasquez MD [Provider Admit Priv/Credential] -
--- NOTE | 2018-04-07 13:27 | DISCHARGE SUMMARY ---
Discharge Summary Discharge Date: 04/07/18 Discharging Provider: CRUZ Primary Care Provider: Dr. Vasquez Condition at Discharge: Serious Discharge Disposition: 50 Hospice/Home DC/Xfer Discharge Facility Name: home - DIAGNOSES Admission Diagnoses: (1) Pathological fracture of hip (2) Metastatic adenocarcinoma (3) Myelopathy (4) Anxiety and depression (5) Hypothyroidism (6) DVT prophylaxis (7) CKD (chronic kidney disease) stage 3, GFR 30-59 ml/min Discharge Diagnoses with Status of Each Condition: (1) Pathological fracture of hip orthopedics was consulted, and recommended no invasive intervention for pt. Pain medication and anti-anxiety medication are prescribed for pt. pt and her DPOA choose to followup hospice care (2) Metastatic adenocarcinoma followup hospice care, pain and anti-anxiety control (3) Myelopathy followup hospice care, pain and anti-anxiety control (4) Anxiety and depression Ativan is prescribed for pt, followup hospice care (5) Hypothyroidism stable, followup hospice care (6) CKD (chronic kidney disease) stage 3, GFR 30-59 ml/min stable, followup hospice care (7) hospice care followup hospice care - HPI History of Present Illness: refer from Dr. Estes's HPI on 04/04/18 for pt as the following: This is a pleasant 77 y/o female with hx stage 4 adenoCA of lung w/ mets to Brain s/p gamma-knife surgery x 5 at [facility], anxiety, depression, GERD, hypothyroidism, invasive ductal breast CA Dx in 1994 s/p chemorad tx and immunotx, Lung CA w/ LLL lobectomy s/p chemo-immunotx with multiple pulmonary nodules seen on CT abd/pelvis on 02/17/18, sees oncology as outpatient as well as Palliative care service with last note on 02/06/18, CKD stage 3 with last cr 1.2, was scheduled for CT scan with IV contrast today, but unfortunately patient fell yesterday while walking to kitchen on her left side and mentioned unable to ambulate after fall for which she conveyed pain to left hip. Patient has had 3 falls in the past month per her DPOA, for which concern for mets to spine and or bone was thought initially to explain possible LLE weakness due to mets-induced myelopathy of T/L-spine. Patient states that she has been off of Decadron ever since gamma-knife procedure with no mets lesions per her hx. Patient's CBC shows mild macrocytosis anemia, chemistries unremarkable. Dr. Sandoval from orthopedic service has been consulted and expressed concern for a "pathological" fracture in the setting of patients active metastatic disease associated with adenoCA of lung stage 4. Patient to be kept NPO for now, will hold off on lovenox, although indicated in active cancer or mets due to high risk of DVT/PE. Patient denies fe vers, SOB, chest pain, rash, N/V/-GI symptoms. - CONSULTS | PROCEDURES Consultations: palliative care provider, Ms. Misty Mcneill Procedures: refer to hospice care - HOSPITAL COURSE Hospital Course: pt was admitted for hip pathological fracture. orthopedics was consulted, and recommended no invasive intervention for pt. pt had lung cancer at stage 4 with brain metastases status post gamma knife surgery, now presenting with presumed pathologic fracture, continue decline. palliative care was consulted. Pt and her DPOA choose hospice care. Then pt was refer to hospice care. Pain medication and anti-anxiety medication were prescribed for pt. followup hospice care - ALLERGIES Allergies/Adverse Reactions: Allergies Allergy/AdvReac Type Severity Reaction Status Date / Time hydromorphone HCl * AdvReac Unknown Verified 02/17/18 14:34 [From Dilaudid] prednisone AdvReac Hallucinati Verified 02/17/18 14:33 ons - MEDICATIONS Home Medications: Ambulatory Orders Medication Instructions Recorded Confirmed Albuterol Sulfate [Proair Hfa 1 - 2 puffs INH Q4H PRN 09/27/13 04/04/18 Inhaler] Levothyroxine [Synthroid] 25 mcg PO QPM 09/27/13 04/04/18 Timolol 0.5% Ophth Drops [Timoptic 1 drop EACHEYE BID 09/27/13 04/04/18 0.5% Ophth Drops] Senna [Senokot] 8.6 mg PO DAILY 01/21/18 04/04/18 Zolpidem Tartrate [Ambien] 5 - 10 mg PO QPM PRN MDD 10 mg 01/21/18 04/04/18 Acetaminophen 500 mg PO Q4HR PRN MDD 3000 mg 01/28/18 04/04/18 Famotidine 20 mg PO DAILY #30 tablet 02/17/18 04/04/18 Prochlorperazine [Compazine] 5 - 10 mg PO DAILY PRN 04/04/18 04/04/18 LORazepam [Ativan] 0.5 mg PO Q6H #12 tablet 04/06/18 Morphine Sulfate [Morphine Sulf 5 mg PO Q1H PRN #15 ml 04/06/18 Oral (Roxanol)] - PHYSICAL EXAM AT DISCHARGE General Appearance: positive: No acute distress, Alert, Lethargic Eyes Bilateral: positive: Normal inspection, PERRL, No lid inflammation, Conjunctivae nml ENT: positive: ENT inspection nml, Pharynx nml, No signs of dehydration. negative: Purulent nasal drainage, Pharyngeal erythema, Oral lesions Neck: positive: Nml inspection, Thyroid nml, No JVD, Trachea midline. negative: Stiff neck, Swelling/bruising, Tracheal deviation Respiratory: positive: Chest non-tender, No respiratory distress. negative: Wheezes, Rales Cardiovascular: positive: Regular rate & rhythm, No murmur, No gallop, Tachycardia. negative: Extrasystoles, Bradycardia Peripheral Pulses: positive: 2+ Abdomen: positive: Non-tender, No organomegaly, Nml bowel sounds, No distention. negative: Tenderness, Guarding, Rebound Back: positive: Nml inspection Skin: positive: Color nml, No rash, Warm, Dry. negative: Cyanosis, Diaphoresis, Pallor Extremities: positive: Non-tender. negative: Calf tenderness, Geovany's sign/cords Neurologic/Psychiatric: positive: Oriented x3, Sensation nml, Weakness. negative: Sensory loss, Facial droop, Slurred/abnml speech, Depressed mood/affect - LABS Result Diagrams: 04/04/18 01:54 04/04/18 01:54 - SEPSIS Current Stage of Sepsis: Ruled out - FOLLOW UP Follow Up: you may followup hospice care when you are arrival to your home - TIME SPENT Time Spent in Discharge (Minutes): 60
[2018-04-07 14:55] VITALS: BP 141/64
--- NOTE | 2018-04-07 16:53 | CONSULTATION NOTE ---
Palliative Care Follow Up - Referral Referring Provider: Leta WINCHESTER Time of Visit: [id number] Referral setting: Hospitalized patient Referral Reason: Stage IV Lung cancer with brain/bone mets/Goals of care - Information Sources Records reviewed: RN notes reviewed, Previous records reviewed History/Review of Systems obtained from: Patient, Family (S/O Ashley present for visits;), Caregiver (input from nursing/hospitalist) Exam limitations: Clinical condition (patient with STM issues and high anxiety) - History of Present Illness Update Brief HPI Update: Please see HPI 04/04 more complete history. Patient had received block with anesthesia in attempt to facilitate better temporary pain management for horvath catheter placement, and transition home. Due to a series of misunderstandings, patient's fentanyl was decreased to 12 mcg from 25 mcg, now back up to 25 mcg. Patient is without pain at rest, has nursing has been aggressively managing her pain medication today with MS 5 mg orally every 2 hours. Concern had not gotten enough medication overnight and worried about pain control. Reassured with effectiveness of current regimen. Plan for new hospital bed to be delivered today, patient's bowels still have not moved, but patient quite confident is going to happen when she arrives home. She has been quite resistant to any further intervention, but denies nausea or vomiting, or abdominal discomfort. Abdomen is soft, with hypoactive bowel tones. Patient has been eating small amounts, and taking sips of fluid. Patient at baseline has very high anxiety, is quite anxious about going home, has intermittent confusion. Social History - Living Situation Living arrangement: At home Living Situation: With spouse/s.o. Support System: Ashley patient's SO, remains concerned about the transition. Recommended she ask someone to stay the night with her, has friends who are assisting, to pear picker the medication today. Was quite reassured with the meeting of [facility] RNCM, also has the stressor of caring for her mother who is currently at the [facility] with compression fx. Medications/Allergies - Medications Active Medication List: Albuterol Sulfate [Proair Hfa Inhaler] 1 - 2 puffs INH Q4H PRN 09/27/13 Levothyroxine [Synthroid] 25 mcg PO QPM 09/27/13 Timolol 0.5% Ophth Drops [Timoptic 0.5% Ophth Drops] 1 drop EACHEYE BID 09/27/13 Senna [Senokot] 8.6 mg PO DAILY 01/21/18 Zolpidem Tartrate [Ambien] 5 - 10 mg PO QPM PRN MDD 10 mg 01/21/18 Acetaminophen 500 mg PO Q4HR PRN MDD 3000 mg 01/28/18 Prochlorperazine [Compazine] 5 - 10 mg PO DAILY PRN 04/04/18 - Allergies Allergies/Adverse Reactions: Allergies Allergy/AdvReac Type Severity Reaction Status Date / Time hydromorphone HCl * AdvReac Unknown Verified 02/17/18 14:34 [From Dilaudid] prednisone AdvReac Hallucinati Verified 02/17/18 14:33 ons Review of Systems - Constitutional Constitutional: reports: Fatigue - Eyes Eyes: reports: Vision loss - Respiratory Respiratory: denies: Cough, SOB at rest - Gastrointestinal Gastrointestinal: reports: Constipation, Early satiety. denies: Nausea - Genitourinary Genitourinary: reports: Other (horvath catheter placed) - Musculoskeletal Musculoskeletal: reports: Muscle weakness, Other (bedbound secondary to fracture) - Integumentary Integumentary: reports: Dryness - Neurological Neurological: reports: Memory problems - Psychiatric Psychiatric: reports: Anxiety - Endocrine Endocrine: reports: Hypothyroidism - All Other Systems All Other Systems: reports: Reviewed and negative Physical Exam - Vital Signs Vital Signs: Vital Signs x48h Temp Pulse Resp BP Pulse Ox 04/07/18 14:54 37.4 C 110 H 24 141/64 H 97 - Physical Exam General Appearance: positive: Anxious Eyes Bilateral: positive: Other (conjunctivae reddened;baseline) ENT: positive: No signs of dehydration Neck: positive: No JVD, Trachea midline Cardiovascular: positive: Regular rate & rhythm Respiratory: positive: No respiratory distress Abdomen: positive: Non-tender, Soft, Nml bowel sounds Skin: positive: Pallor, Dryness Extremities: positive: No pedal edema Neurologic/Psychiatric: positive: Disoriented to time, Other (anxious) Palliative Care - POLST Patient has POLST: Yes POLST Status: DNR, Selective Treatment Pain: Pain improved, Location (left hip) Tiredness/Fatigue: Moderate (4-6) Drowsiness/Sedation: Mild (1-3) Nausea: None Depression: Mild (1-3) Anxiety: Severe (7-10) Dyspnea: None Anorexia: Mild (1-3) Constipation: Yes, Opoid induced, Unmanaged - Palliative Care Discussion: Met with Ashley, regarding concerns and questions about pending transition. Reviewed transition plan, feeling more confident with pain regimen and review with Criselda the nurse today. Does see morphine 5 mg is effective and has been receiving it every 2 hours, and able to continue this at home, Rx to be filled prior to arrival. Worried that patient has wanted to do DWD, wondering about the process, discussed at this point in time was not really not appropriate nor time sensitive given patient will most likely remain pleasantly confused. She requested I speak to patient about this. Counseling provided regarding expected decline, if patient eating and drinking this time is extended, focus on comfort is the goal and hospice support available for questions and concerns. Discussed Ashley's shock and sadness at Dorothy's decline, is making arrangements for friends to come say their goodbyes. Met with patient, patient actually was aware DWD was not probably something that was going to be able to pursue. Unclear if she recall this from earlier co nversations. Did discuss in light of her decline, patient always has the option of stopping eating and drinking in the context of her disease process if this is important to her. She does admit to feeling pretty good at this point in time, though she continues with many fears and concerns. Asked her what is happening as far as her internal work and spiritual journey, patient is Zoroastrian. She re ports her philosophy when "we we just , but live on when you are remembered by people with a sense of the immortality". This is of comforting thought to her. She does continue to be quite in shock, and shared her feelings and concerns. Results - Lab Results Fish Bones: 04/04/18 01:54 04/04/18 01:54 Impression and Recommendations - Palliative Care Impression: This is anxious 69-year-old woman with known stage IV lung cancer with brain metastases status post gamma knife surgery 01/2018, now presenting with pathologic fracture to her left hip, as well as concern for spinal metastases/cord compression. Patient has chosen to focus on quality of life, transitioning home for end-of-life care with hospice today. Recommendations/Counseling Done: 1. Acute on chronic pain. Would recommend most likely considering increasing fentanyl patch from 25 mcg, at least up to 37.5 and consider 50 mcg patch depending on breakthrough pain use. Patient does respond nicely to the morphine 5 mg, with relief of any complaints of distress. Patient to be premedicated prior to transition to ambulance, medications available in the home setting as well. Counseling provided regarding goals of care, also realistically unable to take away all pain, movement is going to cause some distress but wanting to minimize this. 2.Generalized anxiety disorder. Patient at baseline has high anxiety, admits to escalation. Patient has been managed in the past on clonazepam with good results. Patient's goals include preference to be "loopy" and sedation vs distressed. Counseling provided regarding laying out plan, reassurance given, as well as encouragement to be patient with the process. Patient with mild confusion, was somewhat distressed that was leaving tomorrow, revisited again plan for discharge today and plan for transition home. Patient will need ongoing and frequent reassurance. 3. Constipation. Patient has in the past responded well to senna and MiraLAX, would recommend reinitiating on discharge home, this will be a delicate balance secondary to fracture, and need for adequate pain control. 4. Advanced care planning. Anticipatory guidance provided, follow-up with social work regarding BLS transfer, follow-up with hospice regarding supplies needed in the context of diapers and wipes. Answered questions and concerns, reassurance given. Time Spent: 60 minutes was given 50% of this done in counseling and coordination of care regarding transition to hospice, pain control, and anticipatory guidance
== END 2018-04-07 15:53 | disposition hospice, home (50) | DRG 543 ==
LOC: EDUNIT# → ED 23:52 → MS2 04-04 02:12
PROVIDERS: ADMIT Family Medicine; ATTEND Nurse Practitioner
DX: S72.002A Fracture of unspecified part of neck of left femur, initial encounter for closed fracture (principal); M84.552A Pathological fracture in neoplastic disease, left femur, initial encounter for fracture; G95.9 Disease of spinal cord, unspecified; C34.90 Malignant neoplasm of unspecified part of unspecified bronchus or lung; C79.31 Secondary malignant neoplasm of brain; C79.51 Secondary malignant neoplasm of bone; W19.XXXA Unspecified fall, initial encounter; Z91.81 History of falling; K59.01 Slow transit constipation; F41.9 Anxiety disorder, unspecified; Z66 Do not resuscitate; F41.1 Generalized anxiety disorder; Z79.899 Other long term (current) drug therapy; F32.9 Major depressive disorder, single episode, unspecified; E03.9 Hypothyroidism, unspecified; N18.3 Chronic kidney disease, stage 3 (moderate); K21.9 Gastro-esophageal reflux disease without esophagitis; Z92.21 Personal history of antineoplastic chemotherapy; Z92.3 Personal history of irradiation; R91.8 Other nonspecific abnormal finding of lung field; D53.9 Nutritional anemia, unspecified; J45.909 Unspecified asthma, uncomplicated; H40.9 Unspecified glaucoma; Z85.3 Personal history of malignant neoplasm of breast; Z90.710 Acquired absence of both cervix and uterus; Z90.722 Acquired absence of ovaries, bilateral; Z87.891 Personal history of nicotine dependence; Z51.5 Encounter for palliative care; Z90.13 Acquired absence of bilateral breasts and nipples; M19.90 Unspecified osteoarthritis, unspecified site; R63.4 Abnormal weight loss; Z68.24 Body mass index [BMI] 24.0-24.9, adult; Z74.01 Bed confinement status; G89.29 Other chronic pain
CPT/HCPCS: 36415; 80048; 82565; 83735; 84100; 84520; 85025; 85610; 85730; 86850; 86900; 86901; 96374; 99233; 99283; 99284

== ENCOUNTER 2018-04-07 16:00 | Outpatient (CLI) | payer MEDICARE, OTHER | END 2018-04-07 16:01 | disposition home or self-care (01) | LOC: EMS 16:00 | PROVIDERS: ATTEND Surgery | DX: M84.459A Pathological fracture, hip, unspecified, initial encounter for fracture (principal) | CPT/HCPCS: A0425; A0428 ==